=== PATIENT | male | born 1995 | race Caucasian/White ===

== ENCOUNTER 2017-07-05 10:21 | Emergency (ER) | payer MEDICAID ==
[2017-07-05] MEDS ORDERED: KETOROLAC 60 MG/2 ML VIAL IVP STA (10:36)
[2017-07-05] MEDS ORDERED: ONDANSETRON 4 MG/2 ML VIAL IVP STA ×2 (10:36→13:03)
[2017-07-05] MEDS ORDERED: SODIUM CHLORIDE 0.9% 1,000 ML IV ONE (10:37)
[2017-07-05] MEDS ORDERED: ONDANSETRON 4 MG/2 ML VIAL ONE ×2 (10:42→13:13)
[2017-07-05] MEDS ORDERED: KETOROLAC 30 MG/ML VIAL ONE (10:42)
[2017-07-05 10:52] LABS: BASOPHILS % (AUTO) 0.1 %; HCT - HEMATOCRIT 48.2 % (42.0-52.0); HGB - HEMOGLOBIN 16.1 g/dL (14.0-18.0); LYMPHOCYTES % (AUTO) 3.7 %; MEAN CORPUSCULAR HEMOGLOBIN 30.8 pg (27.0-31.0); MEAN CORPUSCULAR HGB CONC 33.5 g/dL (32.0-36.0); MEAN PLATELET VOLUME 8.4 fL (7.4-11.4); MONOCYTES % (AUTO) 1.8 %; NEUTROPHILS % (AUTO) 94.4 %; RED BLOOD COUNT 5.23 10^6/uL (4.70-6.10); RED CELL DISTRIBUTION WIDTH 13.9 % (12.0-15.0); UNCORRECTED WHITE BLOOD COUNT 21.7 x10^3/uL; WHITE BLOOD COUNT 21.7 x10^3/uL (4.8-10.8)
--- NOTE | 2017-07-05 11:15 | ED Physician Documentation ---
History of Present Illness - Stated complaint Stated Complaint: R SIDE PX - Chief complaint Chief Complaint: Abd Pain - History obtained from History obtained from: Patient, Friend - History of Present Illness Timing: Last night Pain level max: 8 Pain level now: 6 - Additonal information Additional information: Patient is a 22-year-old male who presents to the emergency department with right flank pain. States similar to kidney stones he has had in the past. He has had nausea and vomiting. States that nothing makes the pain better and nothing makes the pain worse. Was drinking alcohol last night. Denies any fevers. Review of Systems Constitutional: denies: Fever, Chills Throat: denies: Sore throat Cardiac: denies: Chest pain / pressure Respiratory: denies: Cough GI: denies: Diarrhea, Hematemesis, Bloody / black stool : reports: Hematuria. denies: Dysuria, Frequency, Hesitancy Skin: denies: Rash Musculoskeletal: denies: Neck pain, Back pain Neurologic: denies: Headache PD PAST MEDICAL HISTORY - Past Medical History Past Medical History: Yes : Kidney stones - Past Surgical History Past Surgical History: No - Present Medications Home Medications: Ambulatory Orders Medication Instructions Recorded Confirmed Ibuprofen [Motrin] 800 mg PO Q8H PRN #30 tablet 07/05/17 Ondansetron Odt [Zofran] 4 mg TL Q6H PRN #10 tablet 07/05/17 Oxycodone HCl/Acetaminophen 1 - 2 each PO Q6H PRN #14 tablet 07/05/17 [Percocet 5-325 mg Tablet] - Allergies Allergies/Adverse Reactions: Allergies Allergy/AdvReac Type Severity Reaction Status Date / Time Penicillins Allergy Mild Rash Verified 08/29/13 01:55 - Social History Does the pt smoke?: Yes Smoking Status: Current every day smoker Does the pt drink ETOH?: Yes Does the pt have substance abuse?: Yes Substance Use and Type: Marijuana - Immunizations Immunizations are current?: Yes - POLST Patient has POLST: No PD ED PE NORMAL - Vitals Vital signs reviewed: Yes - General General: Alert and oriented X 3, Other (appears in pain) - HEENT HEENT: Moist mucous membranes - Neck Neck: Supple, no meningeal sign - Cardiac Cardiac: RRR - Respiratory Respiratory: No respiratory distress, Clear bilaterally - Abdomen Abdomen: Soft, Non tender, Non distended - Back Back: No CVA TTP - Derm Derm: Warm and dry - Neuro Neuro: Alert and oriented X 3 - Psych Psych: Normal mood, Normal affect Results - Vitals Vitals: Vital Signs - 24 hr 07/05/17 07/05/17 07/05/17 10:25 12:20 13:56 Temperature 36.7 C Heart Rate 71 72 70 Respiratory 18 16 12 Rate Blood Pressure 127/80 131/53 H 108/52 L O2 Saturation 100 99 100 Oxygen O2 Source Room air - Labs Labs: Laboratory Tests 07/05/17 07/05/17 07/05/17 10:40 10:40 11:25 WBC 21.7 H RBC 5.23 Hgb 16.1 Hct 48.2 MCV 92.0 MCH 30.8 MCHC 33.5 RDW 13.9 Plt Count 233 MPV 8.4 Neut # Not Reportable Lymph # Not Reportable [place] # Not Reportable Eos # Not Reportable Baso # Not Reportable Absolute Nucleated RBC Not Reportable Band Neuts % (Manual) 1 Neutrophils # (Manual) 21.0 H Lymphocytes # (Manual) 0.7 L Nucleated RBCs Not Reportable Platelet Estimate NORMAL (130-450,000) RBC Morph Micro Appear NORMAL APPEARANCE Sodium 140 Potassium 4.4 Chloride 101 Carbon Dioxide 19 L Anion Gap 20.0 H BUN 11 Creatinine 1.1 Estimated GFR (MDRD) 85 L Glucose 213 H Calcium 10.0 Total Bilirubin 0.4 AST 41 ALT < 10 L Alkaline Phosphatase 71 Total Protein 8.2 Albumin 5.0 Globulin 3.2 Albumin/Globulin Ratio 1.6 Lipase 23 Urine Color YELLOW Urine Clarity CLEAR Urine pH 7.0 Ur Specific [place] 1.010 Urine Protein TRACE Urine Glucose (UA) 250 H Urine Ketones 15 H Urine Occult Blood MODERATE H Urine Nitrite NEGATIVE Urine Bilirubin NEGATIVE Urine Urobilinogen 0.2 (NORMAL) Ur Leukocyte Esterase NEGATIVE Urine RBC 11-25 H Urine WBC 0-3 Ur Squamous Epith Cells NONE SEEN Urine Bacteria None Seen Urine Casts 0-2 Hyaline Casts Ur Microscopic Review INDICATED Urine Culture Comments NOT INDICATED Urine Opiates Screen POSITIVE H Ur Oxycodone Screen NEGATIVE Urine Methadone Screen NEGATIVE Ur Propoxyphene Screen NEGATIVE Ur Barbiturates Screen NEGATIVE Ur Tricyclics Screen NEGATIVE Ur Phencyclidine Scrn NEGATIVE Ur Amphetamine Screen NEGATIVE U Methamphetamines Scrn NEGATIVE U Benzodiazepines Scrn NEGATIVE Urine Cocaine Screen NEGATIVE U Cannabinoids Screen POSITIVE H - Rads (name of study) CT abdomen and pelvis Radiology: Prelim report reviewed, EMP read contemporaneously, See rad report ( Bilateral nonobstructing renal stones) PD MEDICAL DECISION MAKING - ED course Complexity details: reviewed results, re-evaluated patient, considered differential, d/w patient ED course: Patient is a 22-year-old male who presents to the emergency department with what appears to be a kidney stone on the right side. Pain resolved with Toradol. Feels much better. Pain did begin to recur in the emergency department and pain was well controlled once again. Tolerating p.o. without difficulty. Will prescribe a small amount of pain medication for home. Does have hematuria consistent with ureteral stone as well. No evidence of infection. Patient counseled regarding signs and symptoms for which I believe and urgent re-evaluation would be necessary. Patient with good understanding of and agreement to plan and is comfortable going home at this time This document was made in part using voice recognition software. While efforts are made to proofread this document, sound alike and grammatical errors may occur. Departure - Departure Disposition: 01 Home, Self Care Clinical Impression: Ureteral stone Condition: Good Instructions: ED Stone Renal W Colic Follow-Up: Abhijeet Perez MD [Primary Care Provider] - Within 3 Days Prescriptions: Ibuprofen [Motrin] 800 mg PO Q8H PRN #30 tablet PRN Reason: PAIN &/OR FEVER Oxycodone HCl/Acetaminophen [Percocet 5-325 mg Tablet] 1 - 2 each PO Q6H PRN # 14 tablet PRN Reason: pain Ondansetron Odt [Zofran] 4 mg TL Q6H PRN #10 tablet PRN Reason: Nausea / Vomiting Comments: Return if you worsen. Drink plenty of water. Do not drink alcohol or drive while on narcotic pain medicine. Note that many narcotic pain relievers also contain tylenol/acetaminophen. Please ensure that your total dose of acetaminophen from all sources does not exceed 3 grams (3000mg) per day. You may constipated on this medication, take a stool softener such as "Colace" twice a day while you are on it. Also recommend a [id number] laxative such as senna or MiraLAX any day that you do not have a bowel movement. If you received narcotic pain medication in the emergency department, do not drive or operate machinery for the next 24 hours. Your blood pressure was elevated today on check in to the emergency department. This does not mean that you have hypertension, it is a common phenomenon to check into the emergency department and have elevated blood pressure. I recommend that you see your primary care physician within the week to have it rechecked when you're feeling better. Discharge Date/Time: 07/05/17 14:31
[2017-07-05 11:20] LABS: BAND NEUTROPHILS % (MANUAL) 1 %; LYMPHOCYTES % (MANUAL) 3 %; NEUTROPHILS % (MANUAL) 96 %
[2017-07-05 11:21] LABS: NP AUTO DIFFERENTIAL? YES; NP MAN DIFFERENTIAL? NO; PLATELET ESTIMATE, MANUAL NORMAL (130-450,000) (NORMAL)
[2017-07-05 11:22] LABS: ALBUMIN/GLOBULIN RATIO 1.6 (1.0-2.2); BILIRUBIN,TOTAL 0.4 mg/dL (0.2-1.0); BUN - BLOOD UREA NITROGEN 11 mg/dL (6-20); CARBON DIOXIDE - CO2 19 mmol/L (21-32); CHLORIDE 101 mmol/L (101-111); CREATININE 1.1 mg/dL (0.6-1.2); GFR - MDRD 85 (>89); GLUCOSE 213 mg/dL (70-100); LIPASE 23 U/L (22-51); POTASSIUM 4.4 mmol/L (3.5-5.0); SODIUM 140 mmol/L (135-145); TOTAL PROTEIN 8.2 g/dL (6.7-8.2)
[2017-07-05 11:34] LABS: BILIRUBIN,URINE NEGATIVE (NEGATIVE)
[2017-07-05 11:36] LABS: UA w/ MICROSCOPIC CHARGE YES
[2017-07-05 11:53] LABS: WBC,URINE 0-3 /HPF (0-3)
[2017-07-05 11:54] LABS: UR CULTURE IF IND NOT INDICATED
[2017-07-05] MEDS: SODIUM CHLORIDE 0.9% 1,000 ML IV ONE ×2 (12:17→13:03)
--- NOTE | 2017-07-05 12:49 | CT Preliminary Report ---
Exam: CT Abdomen/Pelvis W/O IMPRESSION: 1. Nonobstructing bilateral renal stones. [facility] SITE ID: [id number]
--- NOTE | 2017-07-05 12:51 | CT Report ---
EXAM: CT ABDOMEN AND PELVIS (CT KUB) EXAM DATE: 07/05/2017 12:00 PM. CLINICAL HISTORY: R flank pain, poss kidney stone. COMPARISONS: None. TECHNIQUE: Routine axial helical CT imaging was performed through the abdomen and pelvis without IV c ontrast. Reconstructions: Coronal and sagittal. In accordance with CT protocol optimization, one or more of the following dose reduction techniques w ere utilized for this exam: automated exposure control, adjustment of mA and/or KV based on patient s ize, or use of iterative reconstructive technique. FINDINGS: Lung Bases: Unremarkable. Right Kidney/Ureter: 2 nonobstructing right renal stones measuring up to 3 mm the lower pole. Left Kidney/Ureter: 2 nonobstructing left renal stones measuring up to 2 mm in the interpolar region. 1.3 cm lateral left upper renal cyst with water attenuation. Other Solid Organs: Noncontrast images of the solid organs are grossly unremarkable. Gallbladder/Bile Ducts: Dependent density may be from sludge. Cannot exclude noncalcified stones. Peritoneal Cavity: Cecum extends into the right anterior hemipelvis. A normal appendix is probably pr esent. Pelvic Organs: No bladder stones or wall thickening. Noncontrast images of the visualized pelvic orga ns are unremarkable. Vasculature: Unremarkable. Other: None. IMPRESSION: 1. Nonobstructing bilateral renal stones. [facility] Referring Provider Line: [phone] SITE ID: [id number]
[2017-07-05] MEDS ORDERED: MORPHINE 2 MG/ML CARPUJECT IVP STA (13:03)
[2017-07-05] MEDS ORDERED: MORPHINE 2 MG/ML CARPUJECT ONE (13:13)
[2017-07-05 13:56] VITALS: BP 108/52
== END 2017-07-05 14:31 | disposition home or self-care (01) ==
LOC: ED 10:21
DX: N20.2 Calculus of kidney with calculus of ureter (principal); Z87.442 Personal history of urinary calculi; F17.200 Nicotine dependence, unspecified, uncomplicated; R03.0 Elevated blood-pressure reading, without diagnosis of hypertension
CPT/HCPCS: 36415; 74176; 80053; 80306; 81001; 81003; 83690; 85025; 87086; 96374; 96375; 96376; 99283; 99284

== ENCOUNTER 2018-10-10 05:56 | Outpatient (CLI) | payer MEDICAID | END 2018-10-10 05:57 | disposition critical access hospital (66) | LOC: EMS 05:56 | PROVIDERS: ATTEND Surgery | DX: R10.9 Unspecified abdominal pain (principal); R51 Headache; R50.9 Fever, unspecified | CPT/HCPCS: A0425; A0429; A0999 ==

== ENCOUNTER 2018-10-10 05:59 | Inpatient (IN) | payer MEDICAID ==
[2018-10-10] MEDS ORDERED: SODIUM CHLORIDE 0.9% 1,000 ML IV ONE (06:13)
--- NOTE | 2018-10-10 06:15 | ED Physician Documentation ---
History of Present Illness - Stated complaint Stated Complaint: abd px - Chief complaint Chief Complaint: Abd Pain - History obtained from History obtained from: Patient - History of Present Illness Timing: Prior to arrival Pain level max: 10 Pain level now: 10 - Additonal information Additional information: 23-year-old male with history of Kidney stone,IVDA no surgical history here with complaint of abdominal pain and leg pain due to drug withdrawal. He states he actively does IV heroin every 2 hours 1 point each time and the last time he took it was 6 hours ago. Patient also states that he smokes a lot of pot. Denies alcohol denies suicidal ideation. Denies any trauma or travel.Patient stated he is staying with [facility] and she called the ambulance. Review of Systems Ten Systems: 10 systems reviewed and negative Constitutional: reports: Myalgias. denies: Fever Cardiac: denies: Chest pain / pressure Respiratory: denies: Dyspnea GI: reports: Abdominal Pain. denies: Nausea, Vomiting, Constipation, Diarrhea : denies: Dysuria Musculoskeletal: reports: Extremity pain. denies: Neck pain, Back pain Neurologic: denies: Generalized weakness, Numbness PD PAST MEDICAL HISTORY - Past Medical History : Kidney stones - Past Surgical History Past Surgical History: No - Present Medications Home Medications: Ambulatory Orders Medication Instructions Recorded Confirmed Ibuprofen [Motrin] 800 mg PO Q8H PRN #30 tablet 07/05/17 Ondansetron Odt [Zofran] 4 mg TL Q6H PRN #10 tablet 07/05/17 Oxycodone HCl/Acetaminophen 1 - 2 each PO Q6H PRN #14 tablet 07/05/17 [Percocet 5-325 mg Tablet] - Allergies Allergies/Adverse Reactions: Allergies Allergy/AdvReac Type Severity Reaction Status Date / Time Penicillins Allergy Mild Rash Verified 08/29/13 01:55 - Social History Does the pt smoke?: Yes Smoking Status: Current every day smoker Does the pt drink ETOH?: Yes Does the pt have substance abuse?: Yes - Immunizations Immunizations are current?: Yes - POLST Patient has POLST: No PD ED PE NORMAL - Vitals Vital signs reviewed: Yes - General General: Alert and oriented X 3, Well developed/nourished, Other (Patient intermittently moans due to abdominal and leg pain) - HEENT HEENT: Atraumatic, PERRL, EOMI, Moist mucous membranes, Pharynx benign - Neck Neck: Supple, no meningeal sign, No bony TTP - Cardiac Cardiac: RRR, No murmur - Respiratory Respiratory: No respiratory distress, Clear bilaterally - Abdomen Abdomen: Normal bowel sounds, Soft, Non distended, No organomegaly, Other (Low abdominal pain with tightening muscles. No rebound no guarding.) - Back Back: No CVA TTP, No spinal TTP - Derm Derm: Normal color, Warm and dry, No rash - Extremities Extremities: No deformity, No tenderness to palpate, Normal ROM s pain, No edema, No calf tenderness / cord - Neuro Neuro: Alert and oriented X 3 - Psych Psych: Normal mood, Normal affect Results - Vitals Vitals: Vital Signs - 24 hr 10/10/18 10/10/18 06:09 06:30 Temperature 39.7 C H 39.7 C H Heart Rate 135 H 120 H Respiratory 20 20 Rate Blood Pressure 122/50 L 165/105 H O2 Saturation 100 100 Oxygen O2 Source Room air - Labs Labs: Laboratory Tests 10/10/18 10/10/18 10/10/18 06:16 06:16 06:16 WBC 2.7 L RBC 4.53 L Hgb 13.8 L Hct 41.9 L MCV 92.4 MCH 30.5 MCHC 33.0 RDW 13.3 Plt Count 218 MPV 6.7 L Neut # (Auto) Not Reportable Lymph # (Auto) Not Reportable [place] # (Auto) Not Reportable Eos # (Auto) Not Reportable Baso # (Auto) Not Reportable Absolute Nucleated RBC Not Reportable Total Counted 100 Band Neuts % (Manual) 20 H Abnorm Lymph % (Manual) 0 Metamyelocytes % 2 H Myelocytes % 2 H Nucleated RBC % Not Reportable Neutrophils # (Manual) 2.3 Lymphocytes # (Manual) 0.2 L Monocytes # (Manual) 0.0 Eosinophils # (Manual) 0.0 Basophils # (Manual) 0.0 Differential Comment MANUAL DIFFERENTIAL Platelet Estimate NORMAL (130-450,000) RBC Morph Micro Appear NORMAL APPEARANCE Sodium 138 Potassium 3.5 Chloride 101 Carbon Dioxide 28 Anion Gap 9.0 BUN 18 Creatinine 1.3 H Estimated GFR (MDRD) 69 L Glucose 113 H Calcium 8.8 Total Bilirubin 1.2 H AST 103 H ALT 65 H Alkaline Phosphatase 185 H Total Creatine Kinase 333 H Total Protein 6.8 Albumin 3.9 Globulin 2.9 Albumin/Globulin Ratio 1.3 Lipase 19 L Urine Color Urine Clarity Urine pH Ur Specific [place] Urine Protein Urine Glucose (UA) Urine Ketones Urine Occult Blood Urine Nitrite Urine Bilirubin Urine Urobilinogen Ur Leukocyte Esterase Ur Microscopic Review Urine Culture Comments Salicylates < 6.0 Urine Opiates Screen Ur Oxycodone Screen Urine Methadone Screen Ur Propoxyphene Screen Acetaminophen < 10 L Ur Barbiturates Screen Ur Tricyclics Screen Ur Phencyclidine Scrn Ur Amphetamine Screen U Methamphetamines Scrn U Benzodiazepines Scrn Urine Cocaine Screen U Cannabinoids Screen Ethyl Alcohol < 5.0 10/10/18 06:39 WBC RBC Hgb Hct MCV MCH MCHC RDW Plt Count MPV Neut # (Auto) Lymph # (Auto) [place] # (Auto) Eos # (Auto) Baso # (Auto) Absolute Nucleated RBC Total Counted Band Neuts % (Manual) Abnorm Lymph % (Manual) Metamyelocytes % Myelocytes % Nucleated RBC % Neutrophils # (Manual) Lymphocytes # (Manual) Monocytes # (Manual) Eosinophils # (Manual) Basophils # (Manual) Differential Comment Platelet Estimate RBC Morph Micro Appear Sodium Potassium Chloride Carbon Dioxide Anion Gap BUN Creatinine Estimated GFR (MDRD) Glucose Calcium Total Bilirubin AST ALT Alkaline Phosphatase Total Creatine Kinase Total Protein Albumin Globulin Albumin/Globulin Ratio Lipase Urine Color YELLOW Urine Clarity CLEAR Urine pH 6.0 Ur Specific [place] 1.025 Urine Protein TRACE Urine Glucose (UA) NEGATIVE Urine Ketones NEGATIVE Urine Occult Blood TRACE-INTA Urine Nitrite NEGATIVE Urine Bilirubin NEGATIVE Urine Urobilinogen 0.2 (NORMAL) Ur Leukocyte Esterase NEGATIVE Ur Microscopic Review NOT INDICATED Urine Culture Comments NOT INDICATED Salicylates Urine Opiates Screen POSITIVE H Ur Oxycodone Screen NEGATIVE Urine Methadone Screen NEGATIVE Ur Propoxyphene Screen NEGATIVE Acetaminophen Ur Barbiturates Screen NEGATIVE Ur Tricyclics Screen NEGATIVE Ur Phencyclidine Scrn NEGATIVE Ur Amphetamine Screen POSITIVE H U Methamphetamines Scrn POSITIVE H U Benzodiazepines Scrn NEGATIVE Urine Cocaine Screen NEGATIVE U Cannabinoids Screen POSITIVE H Ethyl Alcohol PD MEDICAL DECISION MAKING - ED course Complexity details: considered differential (Perforation, obstruction, drug withdrawal, appendicitis, Rhabdomyolysis) ED course: [address] scan. 7[address] Sign out given to Dr Baker. Departure - Departure Clinical Impression: Polydrug abuse, continuous Abdominal pain Qualifiers: Abdominal location: lower abdomen, unspecified Qualified Code(s): R10.30 - Lower abdominal pain, unspecified
[2018-10-10 06:20] LABS: BASOPHILS % (AUTO) 0.4 %; EOSINOPHILS % (AUTO) 0.3 %; HGB - HEMOGLOBIN 13.8 g/dL (14.0-18.0); LYMPHOCYTES % (AUTO) 5.7 %; MEAN CORPUSCULAR HEMOGLOBIN 30.5 pg (27.0-31.0); MEAN CORPUSCULAR VOLUME 92.4 fL (80.0-94.0); MEAN PLATELET VOLUME 6.7 fL (7.4-11.4); MONOCYTES % (AUTO) 0.8 %; NEUTROPHILS % (AUTO) 92.8 %; PLT - PLATELET COUNT 218 10^3/uL (130-450); RED BLOOD COUNT 4.53 10^6/uL (4.70-6.10); RED CELL DISTRIBUTION WIDTH 13.3 % (12.0-15.0); WHITE BLOOD COUNT 2.7 x10^3/uL (4.8-10.8)
[2018-10-10 06:25] LABS: ABNORMAL LYMPHS % (MANUAL) 0 %
[2018-10-10 06:33] LABS: ALBUMIN 3.9 g/dL (3.2-5.5); ALBUMIN/GLOBULIN RATIO 1.3 (1.0-2.2); ALKALINE PHOSPHATASE 185 IU/L (42-121); ALT ALANINE AMINOTRANSFERASE 65 IU/L (10-60); AST ASPARTATE AMINOTRANSFERASE 103 IU/L (10-42); BILIRUBIN,TOTAL 1.2 mg/dL (0.2-1.0); BUN - BLOOD UREA NITROGEN 18 mg/dL (6-20); CALCIUM 8.8 mg/dL (8.5-10.3); CARBON DIOXIDE - CO2 28 mmol/L (21-32); CHLORIDE 101 mmol/L (101-111); CK- CREATINE KINASE 333 IU/L (22-269); CREATININE 1.3 mg/dL (0.6-1.2); GFR - MDRD 69 (>89); GLUCOSE 113 mg/dL (70-100); LIPASE 19 U/L (22-51); SODIUM 138 mmol/L (135-145); TOTAL PROTEIN 6.8 g/dL (6.7-8.2)
[2018-10-10 06:40] LABS: MUDS CUTOFF CONCENTRATIONS CUTOFF CONC BELOW:
[2018-10-10] MEDS ORDERED: IOVERSOL 320 100 ML VIAL IVP ONE ×2 (06:42→08:08)
[2018-10-10 06:43] LABS: BILIRUBIN,URINE NEGATIVE (NEGATIVE); GLUCOSE, URINE (UA) NEGATIVE (NEGATIVE); KETONES,URINE (UA) NEGATIVE (NEGATIVE); LEUKOCYTE ESTERASE, URINE NEGATIVE (NEGATIVE); NITRITE,URINE NEGATIVE (NEGATIVE); OCCULT BLOOD,URINE TRACE-INTA (NEGATIVE); PROTEIN,URINE TRACE mg/dL (NEGATIVE); UROBILINOGEN,URINE 0.2 (NORMAL) E.U./dL (NORMAL)
[2018-10-10 06:48] LABS: CLARITY,URINE CLEAR (CLEAR)
[2018-10-10 06:59] LABS: AMPHETAMINE SCREEN,URINE POSITIVE (NEGATIVE); BENZODIAZEPINES SCREEN, URINE NEGATIVE (NEGATIVE); COCAINE SCREEN URINE NEGATIVE (NEGATIVE); METHADONE SCREEN, URINE NEGATIVE (NEGATIVE); METHAMPHETAMINES SCREEN, URINE POSITIVE (NEGATIVE); OPIATE SCREEN, URINE POSITIVE (NEGATIVE); OXYCODONE SCREEN, URINE NEGATIVE (NEGATIVE); PROPOXYPHENE SCREEN, URINE NEGATIVE (NEGATIVE); TRICYCLIC ANTIDEPRESSANT,URINE NEGATIVE (NEGATIVE)
[2018-10-10 07:02] LABS: BAND NEUTROPHILS % (MANUAL) 20 %; DIFFERENTIAL COMMENT MANUAL DIFFERENTIAL; LYMPHOCYTES # (MANUAL) 0.2 10^3/uL (1.5-3.5); LYMPHOCYTES % (MANUAL) 8 %; METAMYELOCYTES % (MANUAL) 2 %; MYELOCYTES % (MANUAL) 2 %; NEUTROPHILS # (MANUAL) 2.3 10^3/uL (1.5-6.6); NEUTROPHILS % (MANUAL) 67 %; PLATELET ESTIMATE, MANUAL NORMAL (130-450,000) (NORMAL); RBC MORPHOLOGY (MULTIPLE) NORMAL APPEARANCE (NORMAL)
[2018-10-10 07:03] LABS: ACETAMINOPHEN < 10 ug/mL (10-30); SALICYLATE < 6.0 mg/dL
--- NOTE | 2018-10-10 07:39 | XRAY Report ---
Reason: chest pain Procedure Date: 10/10/2018 Accession Number: [id number] / [id number] Procedure: XR - Chest 1 View X-Ray CPT Code: 61279 FULL RESULT: EXAM: CHEST RADIOGRAPHY EXAM DATE: 10/10/2018 07:06 AM. CLINICAL HISTORY: Chest pain. COMPARISON: None. TECHNIQUE: 1 view. FINDINGS: Lungs/Pleura: No focal opacities evident. No pleural effusion. No detectable pneumothorax. Azygous fissure/lobe. Mediastinum: Within exam limitations, the cardiomediastinal contour is normal. Other: None. IMPRESSION: No acute cardiopulmonary abnormality. [facility]
--- NOTE | 2018-10-10 07:41 | ED Physician Documentation ---
History of Present Illness - Stated complaint Stated Complaint: abd px - Chief complaint Chief Complaint: Abd Pain PD PAST MEDICAL HISTORY - Past Medical History : Kidney stones - Past Surgical History Past Surgical History: No - Present Medications Home Medications: Ambulatory Orders Medication Instructions Recorded Confirmed No Known Home Medications 10/10/18 10/10/18 - Allergies Allergies/Adverse Reactions: Allergies Allergy/AdvReac Type Severity Reaction Status Date / Time Penicillins Allergy Mild Rash Verified 08/29/13 01:55 - Social History Does the pt smoke?: Yes Smoking Status: Current every day smoker Does the pt drink ETOH?: Yes Does the pt have substance abuse?: Yes - Immunizations Immunizations are current?: Yes - POLST Patient has POLST: No Results - Vitals Vitals: Vital Signs - 24 hr 10/10/18 10/10/18 10/10/18 06:09 06:30 08:17 Temperature 39.7 C H 39.7 C H 37.7 C H Heart Rate 135 H 120 H 122 H Respiratory 20 20 19 Rate Blood Pressure 122/50 L 165/105 H 104/63 O2 Saturation 100 100 98 10/10/18 10/10/18 09:22 10:44 Temperature 37.7 C H Heart Rate 120 H 120 H Respiratory 21 14 Rate Blood Pressure 112/60 112/60 O2 Saturation 96 95 Oxygen O2 Source Room air - Labs Labs: Microbiology 10/10/18 09:15 CSF Culture - Preliminary Cerebral Spinal Fluid Laboratory Tests 10/10/18 10/10/18 10/10/18 06:05 06:16 06:16 WBC 2.7 L RBC 4.53 L Hgb 13.8 L Hct 41.9 L MCV 92.4 MCH 30.5 MCHC 33.0 RDW 13.3 Plt Count 218 MPV 6.7 L Neut # (Auto) Not Reportable Lymph # (Auto) Not Reportable [place] # (Auto) Not Reportable Eos # (Auto) Not Reportable Baso # (Auto) Not Reportable Absolute Nucleated RBC Not Reportable Total Counted 100 Band Neuts % (Manual) 20 H Abnorm Lymph % (Manual) 0 Metamyelocytes % 2 H Myelocytes % 2 H Nucleated RBC % Not Reportable Neutrophils # (Manual) 2.3 Lymphocytes # (Manual) 0.2 L Monocytes # (Manual) 0.0 Eosinophils # (Manual) 0.0 Basophils # (Manual) 0.0 Differential Comment MANUAL DIFFERENTIAL Platelet Estimate NORMAL (130-450,000) RBC Morph Micro Appear NORMAL APPEARANCE PT 12.8 H INR 1.1 Sodium 138 Potassium 3.5 Chloride 101 Carbon Dioxide 28 Anion Gap 9.0 BUN 18 Creatinine 1.3 H Estimated GFR (MDRD) 69 L Glucose 113 H Lactic Acid Calcium 8.8 Total Bilirubin 1.2 H AST 103 H ALT 65 H Alkaline Phosphatase 185 H Total Creatine Kinase 333 H Total Protein 6.8 Albumin 3.9 Globulin 2.9 Albumin/Globulin Ratio 1.3 Lipase 19 L Urine Color Urine Clarity Urine pH Ur Specific Mcnary Urine Protein Urine Glucose (UA) Urine Ketones Urine Occult Blood Urine Nitrite Urine Bilirubin Urine Urobilinogen Ur Leukocyte Esterase Ur Microscopic Review Urine Culture Comments CSF Color CSF Clarity Xanthrochromic CSF WBC CSF RBC CSF Cell Count Tube # CSF Glucose CSF Total Protein Salicylates Urine Opiates Screen Ur Oxycodone Screen Urine Methadone Screen Ur Propoxyphene Screen Acetaminophen Ur Barbiturates Screen Ur Tricyclics Screen Ur Phencyclidine Scrn Ur Amphetamine Screen U Methamphetamines Scrn U Benzodiazepines Scrn Urine Cocaine Screen U Cannabinoids Screen Ethyl Alcohol < 5.0 Influenza A (Rapid) Influenza B (Rapid) 10/10/18 10/10/18 10/10/18 06:16 06:39 07:51 WBC RBC Hgb Hct MCV MCH MCHC RDW Plt Count MPV Neut # (Auto) Lymph # (Auto) [place] # (Auto) Eos # (Auto) Baso # (Auto) Absolute Nucleated RBC Total Counted Band Neuts % (Manual) Abnorm Lymph % (Manual) Metamyelocytes % Myelocytes % Nucleated RBC % Neutrophils # (Manual) Lymphocytes # (Manual) Monocytes # (Manual) Eosinophils # (Manual) Basophils # (Manual) Differential Comment Platelet Estimate RBC Morph Micro Appear PT INR Sodium Potassium Chloride Carbon Dioxide Anion Gap BUN Creatinine Estimated GFR (MDRD) Glucose Lactic Acid 1.6 Calcium Total Bilirubin AST ALT Alkaline Phosphatase Total Creatine Kinase Total Protein Albumin Globulin Albumin/Globulin Ratio Lipase Urine Color YELLOW Urine Clarity CLEAR Urine pH 6.0 Ur Specific Mcnary 1.025 Urine Protein TRACE Urine Glucose (UA) NEGATIVE Urine Ketones NEGATIVE Urine Occult Blood TRACE-INTA Urine Nitrite NEGATIVE Urine Bilirubin NEGATIVE Urine Urobilinogen 0.2 (NORMAL) Ur Leukocyte Esterase NEGATIVE Ur Microscopic Review NOT INDICATED Urine Culture Comments NOT INDICATED CSF Color CSF Clarity Xanthrochromic CSF WBC CSF RBC CSF Cell Count Tube # CSF Glucose CSF Total Protein Salicylates < 6.0 Urine Opiates Screen POSITIVE H Ur Oxycodone Screen NEGATIVE Urine Methadone Screen NEGATIVE Ur Propoxyphene Screen NEGATIVE Acetaminophen < 10 L Ur Barbiturates Screen NEGATIVE Ur Tricyclics Screen NEGATIVE Ur Phencyclidine Scrn NEGATIVE Ur Amphetamine Screen POSITIVE H U Methamphetamines Scrn POSITIVE H U Benzodiazepines Scrn NEGATIVE Urine Cocaine Screen NEGATIVE U Cannabinoids Screen POSITIVE H Ethyl Alcohol Influenza A (Rapid) Influenza B (Rapid) 10/10/18 10/10/18 10/10/18 08:41 09:15 09:15 WBC RBC Hgb Hct MCV MCH MCHC RDW Plt Count MPV Neut # (Auto) Lymph # (Auto) [place] # (Auto) Eos # (Auto) Baso # (Auto) Absolute Nucleated RBC Total Counted Band Neuts % (Manual) Abnorm Lymph % (Manual) Metamyelocytes % Myelocytes % Nucleated RBC % Neutrophils # (Manual) Lymphocytes # (Manual) Monocytes # (Manual) Eosinophils # (Manual) Basophils # (Manual) Differential Comment Platelet Estimate RBC Morph Micro Appear PT INR Sodium Potassium Chloride Carbon Dioxide Anion Gap BUN Creatinine Estimated GFR (MDRD) Glucose Lactic Acid Calcium Total Bilirubin AST ALT Alkaline Phosphatase Total Creatine Kinase Total Protein Albumin Globulin Albumin/Globulin Ratio Lipase Urine Color Urine Clarity Urine pH Ur Specific Mcnary Urine Protein Urine Glucose (UA) Urine Ketones Urine Occult Blood Urine Nitrite Urine Bilirubin Urine Urobilinogen Ur Leukocyte Esterase Ur Microscopic Review Urine Culture Comments CSF Color COLORLESS CSF Clarity CLEAR Xanthrochromic ABSENT CSF WBC 1 CSF RBC 0 CSF Cell Count Tube # CSF TUBE# 3 CSF Glucose 68 CSF Total Protein 35 Salicylates Urine Opiates Screen Ur Oxycodone Screen Urine Methadone Screen Ur Propoxyphene Screen Acetaminophen Ur Barbiturates Screen Ur Tricyclics Screen Ur Phencyclidine Scrn Ur Amphetamine Screen U Methamphetamines Scrn U Benzodiazepines Scrn Urine Cocaine Screen U Cannabinoids Screen Ethyl Alcohol Influenza A (Rapid) Negative Influenza B (Rapid) Negative Procedures - Lumbar Puncture Position: Laying right side Location: L3-L4 Anesthesia: Local lidocaine CSF: Clear Other: Sterile prep and drape, Patient tolerated well, No complications. No: Bleeding PD MEDICAL DECISION MAKING - ED course ED course: assumed care 7 AM 23 male IVDA heroin and meth abuser to ER with abd pain exam was notable for lower abd TTP so he had blood work and CT to eval for appendicitis he is febrile 39.7 and has a HR of 135 labs notable for elevated LFTs and low WBC and 20% bands added on lactate blood cx 30 cc/kg IVF and empiric carbapenem and vanco and went to see pt he is a 23 male IVDA heroin and meth user last use several hr [facility] [employer] states has Hep C and was tested for HIV but does not know results states he has a HOROWITZ neck pain CP AP back pain and leg pain no cough NVD states blood in urine exam - febrile tachy SBP 100 awake alert but slightly confused PERRL no photophobia slightly dry MMM neck supple but states it hurts to flex tachy, faint sys murmur CTAB abd diffusely TTP s erythema lesion swelling ext s abscess CT AP neg for acute process CXR no acute process will LP, start empiric ab and admit for sepsis of uncertain etiology likely primarily from IVDA, needs echo too CSF neg for infection flu swabs neg echo done while pt still in ER and shows no vegetations but therapy technician notes pt has markedly dec EF of 30%, no effusion called hospitalist for admit at 0945 spoke to hospitalist at 1040 and she will admit to ICU Departure - Departure Disposition: [facility] DC/Xfer Clinical Impression: Polydrug abuse, continuous Sepsis Qualifiers: Sepsis type: sepsis due to unspecified organism Qualified Code(s): A41.9 - Sepsis, unspecified organism Cardiomyopathy Qualifiers: Cardiomyopathy type: unspecified Qualified Code(s): I42.9 - Cardiomyopathy, unspecified Condition: Fair Discharge Date/Time: 10/10/18 12:12
[2018-10-10] MEDS ORDERED: ACETAMINOPHEN 650 MG SUPP PR STA (07:46)
[2018-10-10] MEDS ORDERED: SODIUM CHLORIDE 0.9% 1,500 ML IV ONE (07:53)
--- NOTE | 2018-10-10 08:11 | CT Report ---
Reason: pain Procedure Date: 10/10/2018 Accession Number: [id number] / [id number] Procedure: CT - Abdomen/Pelvis W/ CPT Code: FULL RESULT: EXAM: CT ABDOMEN AND PELVIS EXAM DATE: 10/10/2018 07:02 AM. CLINICAL HISTORY: Pain. COMPARISONS: ABDOMEN/PELVIS W/O 07/05/2017 11:16 AM. TECHNIQUE: Routine helical CT imaging was performed through the abdomen and pelvis. IV contrast: OPTIRAY 320 100mL. Enteric contrast: No. Reconstructions: Coronal and sagittal. In accordance with CT protocol optimization, one or more of the following dose reduction techniques were utilized for this exam: automated exposure control, adjustment of mA and/or KV based on patient size, or use of iterative reconstructive technique. FINDINGS: Lung Bases: Unremarkable. Liver: No focal liver lesion. Nonspecific mild periportal edema. Gallbladder/Bile Ducts: Unremarkable. Spleen: Normal. Pancreas: Normal. Adrenal Glands: Normal. Kidneys: No hydronephrosis. 19 mm left renal cortical hypodensity, statistically cyst. Few to no definite ureteral calculi. Small nonobstructing bilateral renal calculi. Peritoneal Cavity/Bowel: No free air. No significant free fluid. Moderate colonic stool. Appendix is not clearly visualized; no pericecal inflammatory changes are evident. No evidence of obstruction. No mass or acute inflammatory process evident. Pelvic Organs: Normal. The bladder and visualized pelvic organs are within normal limits. Vasculature: No aneurysms or other significant abnormality. Bones: No significant abnormality. Other: None. IMPRESSION: 1. No convincing acute abdominopelvic findings. 2. Few small bilateral nonobstructing renal calculi. 3. Appendix is is not clearly visualized; no pericecal inflammatory changes are evident. 4. Nonspecific mild periportal edema. 5. Other findings as noted above. RADIA
[2018-10-10] MEDS ORDERED: MEROPENEM 1 GM in SODIUM CHLORIDE 0.9% MINIBAG 100 ML IV STA (08:16)
[2018-10-10] MEDS ORDERED: VANCOMYCIN INJ 1 GM in SODIUM CHLORIDE 0.9% 500 ML IV STA (08:30)
[2018-10-10] MEDS ORDERED: LORazepam 2 MG/ML VIAL IVP STA (08:47)
[2018-10-10] MEDS ORDERED: LIDOCAINE 1% 2 ML VIAL ONE (09:05)
[2018-10-10 09:27] LABS: CSF - GLUCOSE 68 mg/dL (45-70)
[2018-10-10 09:37] LABS: CLARITY,CSF CLEAR (CLEAR); COLOR,CSF COLORLESS (COLORLESS); CSF TUBE # CSF TUBE# 3
[2018-10-10 09:38] LABS: CSF XANTHOCHROMIA ABSENT (ABSENT); RED BLOOD CELL,CSF 0 /mm^3 (0-1); WHITE BLOOD CELL,CSF 1 /mm^3 (0-5)
[2018-10-10] MEDS ORDERED: PROCHLORPERAZINE 10 MG/2 ML VIAL IVP PRN (11:22)
[2018-10-10] MEDS ORDERED: ACETAMINOPHEN 325 MG TABLET PO PRN (11:22)
[2018-10-10] MEDS ORDERED: SODIUM CHLORIDE FLUSH 0.9% 10 ML SYRINGE IVP PRN (11:22)
[2018-10-10] MEDS ORDERED: VANCOMYCIN PER PHARMACY 10 GM in SODIUM CHLORIDE 0.9% 250 ML IV STA (11:27)
[2018-10-10 11:43] LABS: INR 1.1 (0.8-1.2); PT - PROTHROMBIN TIME 12.8 secs (9.9-12.6)
[2018-10-10] MEDS: LACTATED RINGERS 1,000 ML IV SCH ×2 (12:22→19:10)
[2018-10-10] MEDS: MEROPENEM 1 GM in SODIUM CHLORIDE 0.9% MINIBAG 100 ML IV SCH ×2 (15:34→23:51)
[2018-10-10] MEDS ORDERED: VANCOMYCIN INJ 1 GM, VANCOMYCIN INJ 250 MG in SODIUM CHLORIDE 0.9% 250 ML IV SCH (16:00)
[2018-10-10] MEDS: SODIUM CHLORIDE FLUSH 0.9% 10 ML SYRINGE IVP SCH ×2 (17:11→23:50)
[2018-10-10] MEDS: HYDROmorphone 1 MG/ML CARPUJECT IVP PRN ×2 (17:11→23:50)
[2018-10-10] MEDS: VANCOMYCIN INJ 1 GM in SODIUM CHLORIDE 0.9% 250 ML IV SCH (17:34)
[2018-10-10] MEDS ORDERED: LORazepam 0.5 MG TABLET SL PRN (20:46)
[2018-10-10] MEDS ORDERED: cloNIDine 0.1 MG PATCH TOP SCH (21:00)
[2018-10-10] MEDS: FAMOTIDINE 20 MG/50 ML 50 ML IV SCH (21:16)
[2018-10-10] MEDS: DICYCLOMINE 10 MG CAPSULE PO SCH (21:22)
--- NOTE | 2018-10-10 22:15 | HISTORY & PHYSICAL EXAMINATION ---
DATE OF SERVICE: 10/10/2018 Physician: Laura Yarbrough MD HISTORY OF PRESENT ILLNESS: This is a 23-year-old white male with history of kidney stones and IV drug abuse. The patient has a history of hepatitis C and was tested for HIV, but does not know his results yet. The patient lives with his grandparents and admits to using heroin and methamphetamine and marijuana every day. He presented to the emergency room on his own accord with complaints of severe abdominal pain, myalgias diffusely and a fever. He was found to have a heart rate of 140 and blood pressure of 100 and is being admitted for severe sepsis. PAST MEDICAL HISTORY: IV drug abuse using heroin, methamphetamine and he uses marijuana. History of kidney stones. FAMILY HISTORY: No inherited diseases. SOCIAL HISTORY: The patient drinks alcohol daily, uses heroin every 2 hours IV and admits to using pot frequently and methamphetamines intermittently. MEDICATIONS: None. ALLERGIES: PENICILLINS. REVIEW OF SYSTEMS: Comprehensive review of systems was performed by reviewing the chart, ER doctor's notes as the patient is currently sedated and cannot give detailed answers. The pertinent positives are listed, the rest are negative. PHYSICAL EXAMINATION: GENERAL: Young white male. He is in no distress. He awakens to his name and answers and falls back asleep. VITAL SIGNS: Blood pressure 99/55, pulse 98 in sinus tachycardia. His temperature was 39.7, room air saturation 100%. HEENT: Reveals moist oral mucosa. NECK: Without JVD or carotid bruits. LUNGS: Clear. HEART: Sounds normal. A 1/6 systolic murmur heard at the lower left sternal border. There is no gallop or RV heave. ABDOMEN: Soft, nontender. Normal bowel sounds. EXTREMITIES: No clubbing, cyanosis, edema. He was checked for abscesses by the emergency room physician thoroughly, no evidence of that was seen. NEUROLOGIC: Currently obtunded after Ativan was given. In the emergency room he was somewhat confused, giving answers that were not very clear, but there are no focal neurologic signs. LABORATORY DATA: He underwent a spinal tap in the emergency room, which showed 1 white blood cell, no bacteria. He underwent a CT of the abdomen, which was negative. Chest x-ray: no active disease. Urinalysis unremarkable. Normal electrolytes, BUN 18, creatinine 1.3. Lactic acid 1.6. Elevated liver tests with bilirubin 1.2, AST 103, ALT 65, alkaline phosphatase 185, lipase 19. White blood count low at 2.7, but his differential shows a significant left shift with 20% bands. Hemoglobin 13.8 with a normal MCV, and platelet count normal at 218. INR normal at 1.2. Urinalysis is unremarkable. CSF showed glucose of 68, protein of 35. Serum toxicology showed positive opiates, amphetamine, methamphetamine, and marijuana. Influenza A and B are negative. Echo was done in the emergency room to evaluate the murmur and to evaluate for vegetation, and this showed normal atrial sizes, mild right ventricular enlargement, but normal RV function, normal LV size and wall thickness, but global hypokinesis of the LV with moderately severely depressed EF of 30%, no evidence of vegetations on the leaflets, normal PA pressure of 27 mmHg. IMPRESSION/DIAGNOSES: 1. Severe sepsis by virtue of fever, tachycardia, low blood pressure, confusion and left shift on differential. The source is unknown, most likely a skin source from his iv drug injections. 2. Leukopenia, concern for immunologic disease such as HIV. 3. Intravenous drug abuse. 4. Acute kidney injury. 5. Heart murmur. 6. Systolic heart failure, acute/ new cardiomyopathy. 7. Elevated liver function tests. 8. History of hepatitis C. 9. History of kidney stones. PLAN: Admit patient to the ICU. Continue with aggressive IV hydration with crystalloids and if needed, Levophed. Culture the patient's blood. Begin the patient on empiric coverage for sepsis from a presumed skin source and will therefore use vancomycin and use meropenem because of his PENICILLIN ALLERGY. The patient's neuro status will be observed carefully, one-on-one observation also will be added since he mentioned to his nurse as they were speaking that he was "suicidal." Once he is medically stable, a mental health evaluation with Social Work will be ordered. Treat his fever and pain symptomatically. Watch for heroin withdrawal. CODE STATUS: FULL CODE. DEEP VENOUS THROMBOSIS PROPHYLAXIS: SCDs. ATTESTATION: The patient is expected to be discharged or transferred to another facility within 96 hours: Yes. cc: Abhijeet Perez M.D. TD: 10/10/2018 19:34 [facility]
[2018-10-11] MEDS: LACTATED RINGERS 1,000 ML IV SCH ×3 (02:27→15:34)
[2018-10-11] MEDS: VANCOMYCIN INJ 1 GM in SODIUM CHLORIDE 0.9% 250 ML IV SCH ×3 (02:28→17:35)
[2018-10-11] MEDS: HYDROmorphone 1 MG/ML CARPUJECT IVP PRN ×4 (05:15→22:25)
[2018-10-11 05:31] LABS: VBG PH 7.404 (7.31-7.41)
[2018-10-11 05:36] LABS: BASOPHILS % (AUTO) 0.3 %; EOSINOPHILS % (AUTO) 0.5 %; HGB - HEMOGLOBIN 12.1 g/dL (14.0-18.0); LYMPHOCYTES % (AUTO) 8.4 %; MEAN CORPUSCULAR HEMOGLOBIN 30.4 pg (27.0-31.0); MEAN CORPUSCULAR HGB CONC 32.9 g/dL (32.0-36.0); MEAN CORPUSCULAR VOLUME 92.3 fL (80.0-94.0); MEAN PLATELET VOLUME 7.5 fL (7.4-11.4); MONOCYTES % (AUTO) 5.6 %; NEUTROPHILS % (AUTO) 85.2 %; PLT - PLATELET COUNT 170 10^3/uL (130-450); RED BLOOD COUNT 3.98 10^6/uL (4.70-6.10); RED CELL DISTRIBUTION WIDTH 13.5 % (12.0-15.0); WHITE BLOOD COUNT 23.7 x10^3/uL (4.8-10.8)
[2018-10-11 05:39] LABS: ABNORMAL LYMPHS % (MANUAL) 0 %
[2018-10-11 05:41] LABS: ALBUMIN 2.6 g/dL (3.2-5.5); BILIRUBIN,TOTAL 0.7 mg/dL (0.2-1.0); CALCIUM 7.7 mg/dL (8.5-10.3); CREATININE 0.9 mg/dL (0.6-1.2); TOTAL PROTEIN 5.1 g/dL (6.7-8.2)
[2018-10-11 06:05] LABS: MAGNESIUM 1.6 mg/dL (1.7-2.8); PHOSPHORUS 2.6 mg/dL (2.5-4.6)
[2018-10-11 07:20] LABS: BAND NEUTROPHILS % (MANUAL) 25 %; DIFFERENTIAL COMMENT MANUAL DIFFERENTIAL; EOSINOPHILS # (MANUAL) 0.2 10^3/uL (0-0.7); LYMPHOCYTES # (MANUAL) 3.1 10^3/uL (1.5-3.5); LYMPHOCYTES % (MANUAL) 13 %; MONOCYTES # (MANUAL) 1.2 10^3/uL (0.0-1.0); NEUTROPHILS # (MANUAL) 19.2 10^3/uL (1.5-6.6); NEUTROPHILS % (MANUAL) 56 %; PLATELET ESTIMATE, MANUAL NORMAL (130-450,000) (NORMAL); RBC MORPHOLOGY (MULTIPLE) NORMAL APPEARANCE (NORMAL)
[2018-10-11] MEDS ORDERED: MAGNESIUM SULFATE 2 GRAM 2 GM/50 ML BAG IV ONE (08:00)
[2018-10-11] MEDS: DICYCLOMINE 10 MG CAPSULE PO SCH ×4 (08:54→20:51)
[2018-10-11] MEDS: SODIUM CHLORIDE FLUSH 0.9% 10 ML SYRINGE IVP SCH ×2 (08:55→17:23)
[2018-10-11] MEDS: NICOTINE 21 MG PATCH TOP SCH (09:00)
[2018-10-11] MEDS: FAMOTIDINE 20 MG/50 ML 50 ML IV SCH ×2 (09:03→20:51)
--- NOTE | 2018-10-11 09:12 | PROVIDER PROGRESS NOTE ---
Assessment/Plan - Problem List (1) Severe sepsis Assessment/Plan: WBC has now increased significantly. Possibly yesterday's WBC was a lab error or he has now finally mounted an inflammatory response. The Echo done yesterday showed no areas suspicious for vegetations but a ANSHUL was not done, as we don't have that procedure available here. Blood cultures x2 and csf culture are neg thus far. Continue empiric iv antibiotics for a presumed skin source. Monitor CBC daily. Will repeat blood cultures if he has recurrent fevers and in that case, would consider a transfer for a ANSHUL. (2) Leukopenia Assessment/Plan: Resolved and he now has a very elevated WBC, consistent with Sepsis. It is possible that yesterday's WBC was obtained before he mounted a WBC response. Monitor CBC daily while here. (3) Cardiomyopathy Qualifiers: Cardiomyopathy type: unspecified Qualified Code(s): I42.9 - Cardiomyopathy, unspecified Assessment/Plan: Potential etiologies may include: AIDS-cardiomyopathy, another viral cardiomyopathy, alcoholic cardiomyopathy, other drug complications like a cocaine-induced vasospasms and recurrent ischemia causing cardiomyopathy. Will begin Coreg anf Lisinopril, no Spironolactone due to recent volume depletion. (4) RM (acute kidney injury) Assessment/Plan: Resolved with iv fluids. Monitor BMP daily. (5) Polydrug abuse, continuous Assessment/Plan: The patient needed Bentyl and Clonidone overnight for heroin (opiate) drug withdrawal. This am his BP is normal and he is more awake and lucid. Will stop Clonidine in order to start Coreg and SAVANA-I for his cardiomyopathy. Depending on his alcohol use history, he may need a CIWA protocol. Will obtain a social work consult for mental health eval when he is medically stable, possibly in 1-2 days. He is more awake and will advance his diet. (6) Suicidal ideation Assessment/Plan: He voiced being suicidal to his ICU nurse yesterday, and he was put on suicide precaustions and 1:1 observation. Will obtain a social work consult for mental health eval when he is medically stable, possibly in 1-2 days. - Current Meds Current Meds: Current Medications Generic Name Dose Route Start Last Admin Trade Name Freq PRN Reason Stop Dose Admin Dicyclomine HCl 10 mg 10/10/18 21:00 10/10/18 21:22 Bentyl PO 10 mg QID DEJA Administration Hydromorphone HCl 1 mg 10/10/18 12:22 10/11/18 05:15 Dilaudid Inj Carp IVP 1 mg Q2HR PRN Administration PAIN 8 - 10 Famotidine 50 mls @ 100 mls/hr 10/10/18 21:00 10/10/18 21:46 Pepcid 20 Mg/50 Ml IV Infused BID DEJA Infusion Meropenem 1 gm/ Sodium 100 mls @ 200 mls/hr 10/10/18 16:00 10/11/18 00:31 Chloride IV Infused Q8H DEJA Infusion Vancomycin HCl 1 gm/ Sodium 250 mls @ 167 mls/hr 10/10/18 18:00 10/11/18 04:00 Chloride IV Infused Q8H DEJA Infusion Sodium Chloride 10 ml 10/10/18 17:00 10/10/18 23:50 Normal Saline Flush 0.9% IVP 10 ml 0100,0900,1700 DEJA Administration - Lab Result Fish Bone Diagrams: 10/11/18 05:15 10/11/18 05:15 - Additional Planning My Orders: My Active Orders 10/10/18 11:22 Activity Orders [RC] Routine Daily Weight [RC] 0600 IO [RC] Q1HR Initiate Bowel Care Protocol [RC] QSHIFT Initiate ICU Electrolyte Prot. [RC] .protocol Initiate Line Care Protocol [RC] .protocol Initiate Personal Care Protoco [RC] .protocol Vital Signs [RC] Q1HR Acetaminophen [Tylenol] 650 mg PO Q4HR PRN Prochlorperazine Inj [Compazine Inj] 10 mg IVP Q6HR PRN Sodium Chloride Flush 0.9% [Normal Saline Flush 0.9%] 10 ml IVP PRN PRN Code Status [OTHERS] Routine Condition of Patient [OTHERS] Routine DVT Prophylaxis [OTHERS] Routine 10/10/18 11:25 SCDs [RC] QSHIFT Telemetry- [RC] Routine 10/10/18 11:27 Straight Catheter Insertion [RC] PRN 10/10/18 12:22 HYDROmorphone INJ CARP [Dilaudid Inj Carp] 1 mg IVP Q2HR PRN 10/10/18 12:42 Tobacco Cessation [RC] .ONCE 10/10/18 13:15 1:1 Observation [RC] PRN 10/10/18 16:00 Meropenem [Merrem] 1 gm Sodium Chloride 0.9% Minibag [Normal Saline 0.9% Minibag] 100 ml IV Q8H 10/10/18 17:00 Sodium Chloride Flush 0.9% [Normal Saline Flush 0.9%] 10 ml IVP 0100,0900,1700 10/10/18 18:00 Vancomycin Inj [Vancomycin] 1 gm Sodium Chloride 0.9% [Normal Saline 0.9%] 250 ml IV Q8H 10/10/18 21:00 Famotidine 20 mg/50 ml [Pepcid 20 mg/50 ml] 50 ml IV BID 10/10/18 Lunch Soft Mechanical Diet [DIET] 10/11/18 09:01 Lactated Ringers [Lr] 1,000 ml IV 80 mls/hr 10/11/18 09:02 Carvedilol [Coreg] 3.125 mg PO BID 10/11/18 09:30 VANCOMYCIN TROUGH [CHEM] Timed 10/11/18 12:00 Lisinopril [Zestril] 5 mg PO 1200 10/11/18 Lunch DIET [Regular Diet] [DIET] 10/12/18 05:00 CALCIUM, IONIZED ([facility]) [BG] DAILYLAB CBC - COMP BLD CT W/AUTO DIFF [HEME] DAILYLAB COMPREHENSIVE METABOLIC PANEL [CHEM] DAILYLAB MAGNESIUM [CHEM] DAILYLAB PHOSPHORUS [CHEM] DAILYLAB 10/13/18 05:00 CALCIUM, IONIZED ([facility]) [BG] DAILYLAB CBC - COMP BLD CT W/AUTO DIFF [HEME] DAILYLAB COMPREHENSIVE METABOLIC PANEL [CHEM] DAILYLAB MAGNESIUM [CHEM] DAILYLAB PHOSPHORUS [CHEM] DAILYLAB 10/14/18 05:00 CBC - COMP BLD CT W/AUTO DIFF [HEME] DAILYLAB COMPREHENSIVE METABOLIC PANEL [CHEM] DAILYLAB Subjective - Subjective Patient Reports: Feeling Better, Headache, Other (Neck ache) Nursing Reports: Other (Pt wants a social work consult for rehab for his drug addiction.) Objective Vital Signs: Vital Signs - 24 hr 10/10/18 10/10/18 10/10/18 09:22 10:44 12:00 Temperature 37.7 C H 37.0 C Heart Rate 120 H 120 H Heart Rate [ 112 H Monitoring electrodes] Respiratory 21 14 23 Rate Blood Pressure 112/60 112/60 Blood Pressure [Left Brachial artery] Blood Pressure 103/44 L [Right Brachial artery] O2 Saturation 96 95 99 10/10/18 10/10/18 10/10/18 12:46 13:00 14:00 Temperature 37.3 C Heart Rate Heart Rate [ 109 H 107 H Monitoring electrodes] Respiratory 21 24 Rate Blood Pressure Blood Pressure 104/62 111/57 L [Left Brachial artery] Blood Pressure 94/53 L [Right Brachial artery] O2 Saturation 100 97 10/10/18 10/10/18 10/10/18 15:00 16:00 17:00 Temperature Heart Rate Heart Rate [ 102 H 98 92 Monitoring electrodes] Respiratory 25 H 21 12 Rate Blood Pressure Blood Pressure [Left Brachial artery] Blood Pressure 112/55 L 116/65 109/65 [Right Brachial artery] O2 Saturation 97 99 100 10/10/18 10/10/18 10/10/18 18:00 19:00 19:14 Temperature 36.6 C Heart Rate Heart Rate [ 89 93 Monitoring electrodes] Respiratory 16 16 Rate Blood Pressure Blood Pressure [Left Brachial artery] Blood Pressure 99/55 L 98/58 L [Right Brachial artery] O2 Saturation 97 97 10/10/18 10/10/18 10/10/18 20:00 21:00 22:00 Temperature Heart Rate Heart Rate [ 95 88 73 Monitoring electrodes] Respiratory 15 15 16 Rate Blood Pressure Blood Pressure [Left Brachial artery] Blood Pressure 90/50 L 91/43 L 94/51 L [Right Brachial artery] O2 Saturation 97 99 99 10/10/18 10/10/18 10/11/18 23:00 23:58 00:15 Temperature 36.9 C Heart Rate Heart Rate [ 74 91 Monitoring electrodes] Respiratory 15 14 Rate Blood Pressure Blood Pressure [Left Brachial artery] Blood Pressure 93/47 L 91/40 L [Right Brachial artery] O2 Saturation 97 97 10/11/18 10/11/18 10/11/18 01:00 01:27 02:00 Temperature Heart Rate Heart Rate [ 69 79 Monitoring electrodes] Respiratory 15 15 Rate Blood Pressure Blood Pressure [Left Brachial artery] Blood Pressure 78/40 L 95/47 L 96/48 L [Right Brachial artery] O2 Saturation 99 97 10/11/18 10/11/18 10/11/18 03:00 04:00 05:00 Temperature 36.9 C Heart Rate Heart Rate [ 65 69 76 Monitoring electrodes] Respiratory 14 14 14 Rate Blood Pressure Blood Pressure [Left Brachial artery] Blood Pressure 104/52 L 99/50 L 93/56 L [Right Brachial artery] O2 Saturation 100 99 100 10/11/18 10/11/18 06:00 07:00 Temperature Heart Rate Heart Rate [ 69 84 Monitoring electrodes] Respiratory 14 16 Rate Blood Pressure Blood Pressure [Left Brachial artery] Blood Pressure 103/45 L 103/50 L [Right Brachial artery] O2 Saturation 98 100 Oxygen O2 Source Room air I&O (Last 24 Hrs): Intake and Output Totals x24h 10/09/18 10/10/18 10/11/18 23:59 23:59 23:59 Intake Total 6447.5 1339.000 Output Total 1600 550 Balance 4847.5 789.000 General: Alert, Oriented x3 HEENT: Mucous membr. moist/pink Neck: Supple Neuro: Non Focal Cardiovascular: Regular rate Respiratory: No respiratory distress Abdomen: Soft Extremities: No edema - Results Results: Laboratory Results WBC 23.7 x10^3/uL (4.8-10.8) H 10/11/18 05:15 RBC 3.98 10^6/uL (4.70-6.10) L 10/11/18 05:15 Hgb 12.1 g/dL (14.0-18.0) L 10/11/18 05:15 Hct 36.7 % (42.0-52.0) L 10/11/18 05:15 MCV 92.3 fL (80.0-94.0) 10/11/18 05:15 MCH 30.4 pg (27.0-31.0) 10/11/18 05:15 MCHC 32.9 g/dL (32.0-36.0) 10/11/18 05:15 RDW 13.5 % (12.0-15.0) 10/11/18 05:15 Plt Count 170 10^3/uL (130-450) 10/11/18 05:15 MPV 7.5 fL (7.4-11.4) 10/11/18 05:15 Neut # (Auto) Not Reportable 10/11/18 05:15 Lymph # (Auto) Not Reportable 10/11/18 05:15 [place] # (Auto) Not Reportable 10/11/18 05:15 Eos # (Auto) Not Reportable 10/11/18 05:15 Baso # (Auto) Not Reportable 10/11/18 05:15 Absolute Nucleated RBC Not Reportable 10/11/18 05:15 Total Counted 100 10/11/18 05:15 Band Neuts % (Manual) 25 % (0-10) H 10/11/18 05:15 Abnorm Lymph % (Manual) 0 % 10/11/18 05:15 Metamyelocytes % 2 % (-0) H 10/10/18 06:16 Myelocytes % 2 % (-0) H 10/10/18 06:16 Nucleated RBC % Not Reportable 10/11/18 05:15 Neutrophils # (Manual) 19.2 10^3/uL (1.5-6.6) H 10/11/18 05:15 Lymphocytes # (Manual) 3.1 10^3/uL (1.5-3.5) 10/11/18 05:15 Monocytes # (Manual) 1.2 10^3/uL (0.0-1.0) H 10/11/18 05:15 Eosinophils # (Manual) 0.2 10^3/uL (0-0.7) 10/11/18 05:15 Basophils # (Manual) 0.0 10^3/uL (0-0.1) 10/11/18 05:15 Differential Comment MANUAL DIFFERENTIAL 10/11/18 05:15 Platelet Estimate NORMAL (130-450,000) (NORMAL) 10/11/18 05:15 RBC Morph Micro Appear NORMAL APPEARANCE (NORMAL) 10/11/18 05:15 PT 12.8 secs (9.9-12.6) H 10/10/18 06:05 INR 1.1 (0.8-1.2) 10/10/18 06:05 VBG pH 7.404 (7.31-7.41) 10/11/18 05:15 Ionized Calcium 1.06 mmol/L (1.15-1.33) L 10/11/18 05:15 Sodium 135 mmol/L (135-145) 10/11/18 05:15 Potassium 3.7 mmol/L (3.5-5.0) 10/11/18 05:15 Chloride 103 mmol/L (101-111) 10/11/18 05:15 Carbon Dioxide 27 mmol/L (21-32) 10/11/18 05:15 Anion Gap 5.0 (6-13) L 10/11/18 05:15 BUN 16 mg/dL (6-20) 10/11/18 05:15 Creatinine 0.9 mg/dL (0.6-1.2) 10/11/18 05:15 Estimated GFR (MDRD) 106 (>89) 10/11/18 05:15 Glucose 92 mg/dL (70-100) 10/11/18 05:15 Lactic Acid 1.6 mmol/L (0.5-2.2) 10/10/18 07:51 Calcium 7.7 mg/dL (8.5-10.3) L 10/11/18 05:15 Phosphorus 2.6 mg/dL (2.5-4.6) 10/11/18 05:15 Magnesium 1.6 mg/dL (1.7-2.8) L 10/11/18 05:15 Total Bilirubin 0.7 mg/dL (0.2-1.0) 10/11/18 05:15 AST 35 IU/L (10-42) 10/11/18 05:15 ALT 36 IU/L (10-60) 10/11/18 05:15 Alkaline Phosphatase 63 IU/L (42-121) 10/11/18 05:15 Total Creatine Kinase 333 IU/L (22-269) H 10/10/18 06:16 Total Protein 5.1 g/dL (6.7-8.2) L 10/11/18 05:15 Albumin 2.6 g/dL (3.2-5.5) L 10/11/18 05:15 Globulin 2.5 g/dL (2.1-4.2) 10/11/18 05:15 Albumin/Globulin Ratio 1.0 (1.0-2.2) 10/11/18 05:15 Lipase 19 U/L (22-51) L 10/10/18 06:16 Urine Color YELLOW 10/10/18 06:39 Urine Clarity CLEAR (CLEAR) 10/10/18 06:39 Urine pH 6.0 PH (5.0-7.5) 10/10/18 06:39 Ur Specific [place] 1.025 (1.002-1.030) 10/10/18 06:39 Urine Protein TRACE mg/dL (NEGATIVE) 10/10/18 06:39 Urine Glucose (UA) NEGATIVE mg/dL (NEGATIVE) 10/10/18 06:39 Urine Ketones NEGATIVE mg/dL (NEGATIVE) 10/10/18 06:39 Urine Occult Blood TRACE-INTA (NEGATIVE) 10/10/18 06:39 Urine Nitrite NEGATIVE (NEGATIVE) 10/10/18 06:39 Urine Bilirubin NEGATIVE (NEGATIVE) 10/10/18 06:39 Urine Urobilinogen 0.2 (NORMAL) E.U./dL (NORMAL) 10/10/18 06:39 Ur Leukocyte Esterase NEGATIVE (NEGATIVE) 10/10/18 06:39 Ur Microscopic Review NOT INDICATED 10/10/18 06:39 Urine Culture Comments NOT INDICATED 10/10/18 06:39 CSF Color COLORLESS (COLORLESS) 10/10/18 09:15 CSF Clarity CLEAR (CLEAR) 10/10/18 09:15 Xanthrochromic ABSENT (ABSENT) 10/10/18 09:15 CSF WBC 1 /mm^3 (0-5) 10/10/18 09:15 CSF RBC 0 /mm^3 (0-1) 10/10/18 09:15 CSF Cell Count Tube # CSF TUBE# 3 10/10/18 09:15 CSF Glucose 68 mg/dL (45-70) 10/10/18 09:15 CSF Total Protein 35 mg/dL (15-45) 10/10/18 09:15 Salicylates < 6.0 mg/dL 10/10/18 06:16 Urine Opiates Screen POSITIVE (NEGATIVE) H 10/10/18 06:39 Ur Oxycodone Screen NEGATIVE (NEGATIVE) 10/10/18 06:39 Urine Methadone Screen NEGATIVE (NEGATIVE) 10/10/18 06:39 Ur Propoxyphene Screen NEGATIVE (NEGATIVE) 10/10/18 06:39 Acetaminophen < 10 ug/mL (10-30) L 10/10/18 06:16 Ur Barbiturates Screen NEGATIVE (NEGATIVE) 10/10/18 06:39 Ur Tricyclics Screen NEGATIVE (NEGATIVE) 10/10/18 06:39 Ur Phencyclidine Scrn NEGATIVE (NEGATIVE) 10/10/18 06:39 Ur Amphetamine Screen POSITIVE (NEGATIVE) H 10/10/18 06:39 U Methamphetamines Scrn POSITIVE (NEGATIVE) H 10/10/18 06:39 U Benzodiazepines Scrn NEGATIVE (NEGATIVE) 10/10/18 06:39 Urine Cocaine Screen NEGATIVE (NEGATIVE) 10/10/18 06:39 U Cannabinoids Screen POSITIVE (NEGATIVE) H 10/10/18 06:39 Ethyl Alcohol < 5.0 mg/dL 10/10/18 06:16 Influenza A (Rapid) Negative (Negative) 10/10/18 08:41 Influenza B (Rapid) Negative (Negative) 10/10/18 08:41
[2018-10-11] MEDS: MEROPENEM 1 GM in SODIUM CHLORIDE 0.9% MINIBAG 100 ML IV SCH ×2 (09:18→15:48)
[2018-10-11 09:46] LABS: VANCOMYCIN,TROUGH 17.6 ug/mL (10.0-20.0)
[2018-10-11] MEDS: CARVEDILOL 3.125 MG TABLET PO SCH ×2 (10:52→20:52)
[2018-10-11] MEDS: LISINOPRIL 5 MG TABLET PO SCH (12:32)
[2018-10-12] MEDS: LACTATED RINGERS 1,000 ML IV SCH ×3 (00:06→21:27)
[2018-10-12] MEDS: MEROPENEM 1 GM in SODIUM CHLORIDE 0.9% MINIBAG 100 ML IV SCH ×4 (00:06→23:53)
[2018-10-12] MEDS: SODIUM CHLORIDE FLUSH 0.9% 10 ML SYRINGE IVP SCH ×3 (00:10→18:29)
[2018-10-12] MEDS: VANCOMYCIN INJ 1 GM in SODIUM CHLORIDE 0.9% 250 ML IV SCH ×3 (02:09→18:36)
[2018-10-12] MEDS: HYDROmorphone 1 MG/ML CARPUJECT IVP PRN ×4 (04:26→19:11)
[2018-10-12 05:29] LABS: BASOPHILS # (AUTO) 0.1 10^3/uL (0.0-0.1); BASOPHILS % (AUTO) 0.4 %; EOSINOPHILS # (AUTO) 0.5 10^3/uL (0.0-0.7); EOSINOPHILS % (AUTO) 2.6 %; HGB - HEMOGLOBIN 12.1 g/dL (14.0-18.0); LYMPHOCYTES # (AUTO) 2.6 10^3/uL (1.5-3.5); LYMPHOCYTES % (AUTO) 13.3 %; MEAN CORPUSCULAR HEMOGLOBIN 30.8 pg (27.0-31.0); MEAN CORPUSCULAR HGB CONC 33.1 g/dL (32.0-36.0); MEAN CORPUSCULAR VOLUME 92.9 fL (80.0-94.0); MEAN PLATELET VOLUME 7.7 fL (7.4-11.4); MONOCYTES # (AUTO) 1.4 10^3/uL (0.0-1.0); MONOCYTES % (AUTO) 7.1 %; NEUTROPHILS # (AUTO) 14.8 10^3/uL (1.5-6.6); NEUTROPHILS % (AUTO) 76.6 %; PLT - PLATELET COUNT 165 10^3/uL (130-450); RED BLOOD COUNT 3.93 10^6/uL (4.70-6.10); RED CELL DISTRIBUTION WIDTH 13.8 % (12.0-15.0); WHITE BLOOD COUNT 19.3 x10^3/uL (4.8-10.8)
[2018-10-12 05:34] LABS: VBG PH 7.365 (7.31-7.41)
[2018-10-12 05:49] LABS: ALBUMIN 2.6 g/dL (3.2-5.5); BILIRUBIN,TOTAL 0.5 mg/dL (0.2-1.0); CALCIUM 7.9 mg/dL (8.5-10.3); PHOSPHORUS 2.7 mg/dL (2.5-4.6); TOTAL PROTEIN 5.1 g/dL (6.7-8.2)
[2018-10-12] MEDS: CARVEDILOL 3.125 MG TABLET PO SCH ×2 (09:01→21:27)
[2018-10-12] MEDS: DICYCLOMINE 10 MG CAPSULE PO SCH ×4 (09:12→21:27)
[2018-10-12] MEDS: FAMOTIDINE 20 MG/50 ML 50 ML IV SCH ×2 (09:12→21:27)
[2018-10-12] MEDS ORDERED: GADOBUTROL 7.5 MMOL/7.5 ML VIAL ONE (10:50)
[2018-10-12] MEDS ORDERED: GADOBUTROL 7.5 MMOL/7.5 ML VIAL IVP ONE (11:25)
[2018-10-12] MEDS: NICOTINE 21 MG PATCH TOP SCH (11:46)
--- NOTE | 2018-10-12 12:32 | MRI Report ---
Reason: Sepsis,posterior neck pain,eval for epidral absces Procedure Date: 10/12/2018 Accession Number: [id number] / [id number] Procedure: MRI - Cervical Spine W/WO CPT Code: FULL RESULT: EXAM: MRI CERVICAL SPINE WITHOUT AND WITH CONTRAST EXAM DATE: 10/12/2018 11:37 AM. CLINICAL HISTORY: Sepsis, posterior neck pain, evaluate for epidural abscess. COMPARISON: None. TECHNIQUE: Multiplanar, multisequence T1-weighted and fluid-sensitive sequences of the cervical spine before and after administration of intravenous contrast. Other: None. IV contrast: 7.5 cc Gadavist. FINDINGS: Neurologic Structures: The visualized posterior fossa structures are unremarkable. No signal abnormality in the visualized spinal cord. Alignment: No scoliosis or spondylolisthesis. Bone Marrow: No gross fractures or bone lesions. No marrow edema or abnormal enhancement. Interspace Levels/Facets: C1-C2: Unremarkable. C2-C3: Unremarkable. C3-C4: Mild right foraminal stenosis from Luschka joint hypertrophic spurring. There is moderate to severe left neural foramen entry zone stenosis from posterior left paracentral and left posterolateral 3 mm disk protrusion osteophyte complex. Mild central spinal canal stenosis. Mild effacement anterior left cervical cord without cord signal abnormality from a posterior left paracentral 3 mm disk protrusion osteophyte complex. Mild right facet joint arthrosis. C4-C5: Negative for spinal canal stenosis or foraminal stenosis. Moderate left facet joint arthrosis. C5-C6: Severe left foraminal stenosis from left posterior paracentral left posterolateral broad 4 mm disk extrusion osteophyte complex. Mild central spinal canal stenosis. Posterior left paracentral disk extrusion contacts the anterior cervical cord without cord deformity or cord signal abnormality. Moderate right foraminal stenosis from Luschka joint degenerative hypertrophy. Moderate disk degeneration. C6-C7: Right neural foramen is negative for stenosis. Moderate to severe left foraminal stenosis from a 3 mm foraminal disk protrusion osteophyte complex. Negative for central spinal canal stenosis. Mild left facet joint arthrosis. C7-T1: Negative for spinal canal stenosis or foraminal stenosis. Spinal Canal: No enhancing lesions within the spinal canal. No epidural abscess. Musculature: Normal. No edema, enhancement, or fatty atrophy. Other: The paravertebral and prevertebral soft tissues are normal. IMPRESSION: 1. The spinal cord from the cervicomedullary junction to T1 was negative for abnormal enhancement or signal abnormality. 2. Negative for diskitis, osteomyelitis or epidural abscess. 3. Moderate to severe left C3-C4 foraminal stenosis, mild central spinal canal stenosis and mild effacement of left anterior cervical cord from left posterior paracentral and left posterolateral 3 mm disk protrusion osteophyte complex. 4. Severe left C5-C6 foraminal stenosis from posterior left paracentral and left posterolateral 3 mm disk herniation osteophyte complex. RADIA
[2018-10-12] MEDS: LISINOPRIL 5 MG TABLET PO SCH (13:29)
--- NOTE | 2018-10-12 19:04 | PROVIDER PROGRESS NOTE ---
Assessment/Plan - Problem List (1) Severe sepsis Assessment/Plan: WBC is improving, after it did rise, on empiric antibiotics. Await bacterial culture and viral test results, which are all pending. CSF cultu re neg thus far. Continue empiric Vanco and Meropenam. (2) Cardiomyopathy Qualifiers: Cardiomyopathy type: unspecified Qualified Code(s): I42.9 - Cardiomyopathy, unspecified Assessment/Plan: Pt started on Coreg and SAVANA-I but is on hold for low BPs. Viral test results may help determine the cause. No loop diuretic or Spironolactone was started for the cardiomyopathy, since he came in with volume depletion. (3) RM (acute kidney injury) Assessment/Plan: Resolved with iv hydration. Pt now hydratingg adequately po. Will decrease iv rate and possibly stop tomorrow. No loop diuretic or Spironolactone was started for the cardiomyopathy, since he came in with volume depletion. (4) Polydrug abuse, continuous Assessment/Plan: Pt can be seen by Social Work for evaluation of mental health. He has voiced interest in an Inpatient rehab program. (5) Suicidal ideation Assessment/Plan: As above. Continue 1:1 observation. (6) Neck pain Assessment/Plan: The patient had undergone a spinal tap in ER, since his complaint was posterior neck pain, but today he reports this has been presnt for a year. Imaging ordered and shows degenerative changes out of proportion to his young age; possibly they are traumatic therefore. Continue pain control and consider Flexeril. (7) Leukopenia Assessment/Plan: No further low WBCs - Current Meds Current Meds: Current Medications Generic Name Dose Route Start Last Admin Trade Name Freq PRN Reason Stop Dose Admin Acetaminophen 650 mg 10/10/18 11:22 10/11/18 13:41 Tylenol PO 650 mg Q4HR PRN Administration Pain or Fever > 38C (100.4F) Carvedilol 3.125 mg 10/11/18 09:02 10/12/18 09:01 Coreg PO Not Given BID DEJA Dicyclomine HCl 10 mg 10/10/18 21:00 10/12/18 17:07 Bentyl PO 10 mg QID DEJA Administration Hydromorphone HCl 1 mg 10/10/18 12:22 10/12/18 14:02 Dilaudid Inj Carp IVP 1 mg Q2HR PRN Administration PAIN 8 - 10 Famotidine 50 mls @ 100 mls/hr 10/10/18 21:00 10/12/18 10:15 Pepcid 20 Mg/50 Ml IV Infused BID DEJA Infusion Meropenem 1 gm/ Sodium 100 mls @ 200 mls/hr 10/10/18 16:00 10/12/18 18:00 Chloride IV Infused Q8H DEJA Infusion Vancomycin HCl 1 gm/ Sodium 250 mls @ 167 mls/hr 10/10/18 18:00 10/12/18 18:36 Chloride IV 167 mls/hr Q8H DEJA Administration Lactated Ringer's 1,000 mls @ 80 mls/hr 10/11/18 09:01 10/12/18 18:00 Lr IV 80 mls/hr .[id number] DEJA Infusion Lisinopril 5 mg 10/11/18 12:00 10/12/18 13:29 Zestril PO Not Given 1200 DEJA Nicotine 1 patch 10/11/18 09:00 10/12/18 11:46 Nicoderm TOP 1 patch DAILY DEJA Administration Sodium Chloride 10 ml 10/10/18 17:00 10/12/18 18:29 Normal Saline Flush 0.9% IVP 10 ml 0100,0900,1700 DEJA Administration - Lab Result Fish Bone Diagrams: 10/12/18 04:50 10/12/18 04:50 - Additional Planning My Orders: My Active Orders 10/12/18 Social Work Consult [CONS] Routine 10/13/18 05:00 CALCIUM, IONIZED ([facility]) [BG] DAILYLAB CBC - COMP BLD CT W/AUTO DIFF [HEME] DAILYLAB COMPREHENSIVE METABOLIC PANEL [CHEM] DAILYLAB MAGNESIUM [CHEM] DAILYLAB PHOSPHORUS [CHEM] DAILYLAB 10/14/18 05:00 CBC - COMP BLD CT W/AUTO DIFF [HEME] DAILYLAB COMPREHENSIVE METABOLIC PANEL [CHEM] DAILYLAB Subjective - Subjective Patient Reports: Feeling Better, Other (Still has severe posterior neck pain, today he admits it's been there for a year.) Objective Vital Signs: Vital Signs - 24 hr 10/11/18 10/11/18 10/11/18 20:00 21:00 22:00 Temperature Heart Rate [ 68 60 52 L Monitoring electrodes] Respiratory 14 13 12 Rate Blood Pressure [Left Brachial artery] Blood Pressure 105/55 L 93/48 L 101/52 L [Right Brachial artery] O2 Saturation 99 10/11/18 10/12/18 10/12/18 23:00 00:00 01:00 Temperature 36.5 C Heart Rate [ 58 L 46 L 51 L Monitoring electrodes] Respiratory 13 11 L 13 Rate Blood Pressure 100/55 L 96/55 L 103/48 L [Left Brachial artery] Blood Pressure [Right Brachial artery] O2 Saturation 98 10/12/18 10/12/18 10/12/18 02:00 03:00 04:28 Temperature 36.9 C Heart Rate [ 50 L 50 L 55 L Monitoring electrodes] Respiratory 14 14 12 Rate Blood Pressure 105/54 L 105/57 L 96/57 L [Left Brachial artery] Blood Pressure [Right Brachial artery] O2 Saturation 99 10/12/18 10/12/18 10/12/18 05:00 07:00 07:32 Temperature Heart Rate [ 62 63 49 L Monitoring electrodes] Respiratory 17 16 13 Rate Blood Pressure 96/60 109/50 L 109/50 L [Left Brachial artery] Blood Pressure [Right Brachial artery] O2 Saturation 98 10/12/18 10/12/18 10/12/18 09:00 10:07 12:00 Temperature Heart Rate [ 74 65 58 L Monitoring electrodes] Respiratory 17 13 18 Rate Blood Pressure 121/63 118/63 97/56 L [Left Brachial artery] Blood Pressure [Right Brachial artery] O2 Saturation 99 99 10/12/18 10/12/18 10/12/18 13:00 14:00 15:00 Temperature 36.7 C Heart Rate [ 67 72 55 L Monitoring electrodes] Respiratory 11 L 22 15 Rate Blood Pressure 107/51 L 108/60 [Left Brachial artery] Blood Pressure 120/71 [Right Brachial artery] O2 Saturation 100 98 10/12/18 10/12/18 10/12/18 16:00 17:00 18:00 Temperature 36.7 C Heart Rate [ 53 L 57 L 62 Monitoring electrodes] Respiratory 14 14 17 Rate Blood Pressure 111/61 109/67 107/62 [Left Brachial artery] Blood Pressure [Right Brachial artery] O2 Saturation 98 98 Oxygen O2 Source Room air I&O (Last 24 Hrs): Intake and Output Totals x24h 10/10/18 10/11/18 10/12/18 23:59 23:59 23:59 Intake Total 6447.5 4641.500 5283.333 Output Total 1600 3975 4750 Balance 4847.5 1766.500 533.333 General: Alert, Oriented x3, Cooperative HEENT: Mucous membr. moist/pink Neck: Supple, No JVD Neuro: Non Focal Cardiovascular: Regular rate, No murmurs Respiratory: No respiratory distress, Breath sounds nml Abdomen: Soft Extremities: No edema - Results Results: Laboratory Results WBC 19.3 x10^3/uL (4.8-10.8) H 10/12/18 04:50 RBC 3.93 10^6/uL (4.70-6.10) L 10/12/18 04:50 Hgb 12.1 g/dL (14.0-18.0) L 10/12/18 04:50 Hct 36.5 % (42.0-52.0) L 10/12/18 04:50 MCV 92.9 fL (80.0-94.0) 10/12/18 04:50 MCH 30.8 pg (27.0-31.0) 10/12/18 04:50 MCHC 33.1 g/dL (32.0-36.0) 10/12/18 04:50 RDW 13.8 % (12.0-15.0) 10/12/18 04:50 Plt Count 165 10^3/uL (130-450) 10/12/18 04:50 MPV 7.7 fL (7.4-11.4) 10/12/18 04:50 Neut # (Auto) 14.8 10^3/uL (1.5-6.6) H 10/12/18 04:50 Lymph # (Auto) 2.6 10^3/uL (1.5-3.5) 10/12/18 04:50 [place] # (Auto) 1.4 10^3/uL (0.0-1.0) H 10/12/18 04:50 Eos # (Auto) 0.5 10^3/uL (0.0-0.7) 10/12/18 04:50 Baso # (Auto) 0.1 10^3/uL (0.0-0.1) 10/12/18 04:50 Absolute Nucleated RBC 0.01 x10^3/uL 10/12/18 04:50 Total Counted 100 10/11/18 05:15 Band Neuts % (Manual) 25 % (0-10) H 10/11/18 05:15 Abnorm Lymph % (Manual) 0 % 10/11/18 05:15 Metamyelocytes % 2 % (-0) H 10/10/18 06:16 Myelocytes % 2 % (-0) H 10/10/18 06:16 Nucleated RBC % 0.0 /100WBC 10/12/18 04:50 Neutrophils # (Manual) 19.2 10^3/uL (1.5-6.6) H 10/11/18 05:15 Lymphocytes # (Manual) 3.1 10^3/uL (1.5-3.5) 10/11/18 05:15 Monocytes # (Manual) 1.2 10^3/uL (0.0-1.0) H 10/11/18 05:15 Eosinophils # (Manual) 0.2 10^3/uL (0-0.7) 10/11/18 05:15 Basophils # (Manual) 0.0 10^3/uL (0-0.1) 10/11/18 05:15 Differential Comment MANUAL DIFFERENTIAL 10/11/18 05:15 Platelet Estimate NORMAL (130-450,000) (NORMAL) 10/11/18 05:15 RBC Morph Micro Appear NORMAL APPEARANCE (NORMAL) 10/11/18 05:15 PT 12.8 secs (9.9-12.6) H 10/10/18 06:05 INR 1.1 (0.8-1.2) 10/10/18 06:05 VBG pH 7.365 (7.31-7.41) 10/12/18 04:50 Ionized Calcium 1.12 mmol/L (1.15-1.33) L 10/12/18 04:50 Sodium 135 mmol/L (135-145) 10/12/18 04:50 Potassium 3.9 mmol/L (3.5-5.0) 10/12/18 04:50 Chloride 107 mmol/L (101-111) 10/12/18 04:50 Carbon Dioxide 26 mmol/L (21-32) 10/12/18 04:50 Anion Gap 2.0 (6-13) L 10/12/18 04:50 BUN 16 mg/dL (6-20) 10/12/18 04:50 Creatinine 1.0 mg/dL (0.6-1.2) 10/12/18 04:50 Estimated GFR (MDRD) 93 (>89) 10/12/18 04:50 Glucose 99 mg/dL (70-100) 10/12/18 04:50 Lactic Acid 1.6 mmol/L (0.5-2.2) 10/10/18 07:51 Calcium 7.9 mg/dL (8.5-10.3) L 10/12/18 04:50 Phosphorus 2.7 mg/dL (2.5-4.6) 10/12/18 04:50 Magnesium 2.0 mg/dL (1.7-2.8) 10/12/18 04:50 Total Bilirubin 0.5 mg/dL (0.2-1.0) 10/12/18 04:50 AST 26 IU/L (10-42) 10/12/18 04:50 ALT 30 IU/L (10-60) 10/12/18 04:50 Alkaline Phosphatase 67 IU/L (42-121) 10/12/18 04:50 Total Creatine Kinase 333 IU/L (22-269) H 10/10/18 06:16 Total Protein 5.1 g/dL (6.7-8.2) L 10/12/18 04:50 Albumin 2.6 g/dL (3.2-5.5) L 10/12/18 04:50 Globulin 2.5 g/dL (2.1-4.2) 10/12/18 04:50 Albumin/Globulin Ratio 1.0 (1.0-2.2) 10/12/18 04:50 Lipase 19 U/L (22-51) L 10/10/18 06:16 Urine Color YELLOW 10/10/18 06:39 Urine Clarity CLEAR (CLEAR) 10/10/18 06:39 Urine pH 6.0 PH (5.0-7.5) 10/10/18 06:39 Ur Specific [place] 1.025 (1.002-1.030) 10/10/18 06:39 Urine Protein TRACE mg/dL (NEGATIVE) 10/10/18 06:39 Urine Glucose (UA) NEGATIVE mg/dL (NEGATIVE) 10/10/18 06:39 Urine Ketones NEGATIVE mg/dL (NEGATIVE) 10/10/18 06:39 Urine Occult Blood TRACE-INTA (NEGATIVE) 10/10/18 06:39 Urine Nitrite NEGATIVE (NEGATIVE) 10/10/18 06:39 Urine Bilirubin NEGATIVE (NEGATIVE) 10/10/18 06:39 Urine Urobilinogen 0.2 (NORMAL) E.U./dL (NORMAL) 10/10/18 06:39 Ur Leukocyte Esterase NEGATIVE (NEGATIVE) 10/10/18 06:39 Ur Microscopic Review NOT INDICATED 10/10/18 06:39 Urine Culture Comments NOT INDICATED 10/10/18 06:39 CSF Color COLORLESS (COLORLESS) 10/10/18 09:15 CSF Clarity CLEAR (CLEAR) 10/10/18 09:15 Xanthrochromic ABSENT (ABSENT) 10/10/18 09:15 CSF WBC 1 /mm^3 (0-5) 10/10/18 09:15 CSF RBC 0 /mm^3 (0-1) 10/10/18 09:15 CSF Cell Count Tube # CSF TUBE# 3 10/10/18 09:15 CSF Glucose 68 mg/dL (45-70) 10/10/18 09:15 CSF Total Protein 35 mg/dL (15-45) 10/10/18 09:15 Last Dose Date 10/11/18 10/11/18 09:31 Last Dose Time 0400 10/11/18 09:31 Vancomycin Trough 17.6 ug/mL (10.0-20.0) 10/11/18 09:31 Salicylates < 6.0 mg/dL 10/10/18 06:16 Urine Opiates Screen POSITIVE (NEGATIVE) H 10/10/18 06:39 Ur Oxycodone Screen NEGATIVE (NEGATIVE) 10/10/18 06:39 Urine Methadone Screen NEGATIVE (NEGATIVE) 10/10/18 06:39 Ur Propoxyphene Screen NEGATIVE (NEGATIVE) 10/10/18 06:39 Acetaminophen < 10 ug/mL (10-30) L 10/10/18 06:16 Ur Barbiturates Screen NEGATIVE (NEGATIVE) 10/10/18 06:39 Ur Tricyclics Screen NEGATIVE (NEGATIVE) 10/10/18 06:39 Ur Phencyclidine Scrn NEGATIVE (NEGATIVE) 10/10/18 06:39 Ur Amphetamine Screen POSITIVE (NEGATIVE) H 10/10/18 06:39 U Methamphetamines Scrn POSITIVE (NEGATIVE) H 10/10/18 06:39 U Benzodiazepines Scrn NEGATIVE (NEGATIVE) 10/10/18 06:39 Urine Cocaine Screen NEGATIVE (NEGATIVE) 10/10/18 06:39 U Cannabinoids Screen POSITIVE (NEGATIVE) H 10/10/18 06:39 Ethyl Alcohol < 5.0 mg/dL 10/10/18 06:16 Influenza A (Rapid) Negative (Negative) 10/10/18 08:41 Influenza B (Rapid) Negative (Negative) 10/10/18 08:41
[2018-10-13] MEDS: SODIUM CHLORIDE FLUSH 0.9% 10 ML SYRINGE IVP SCH ×3 (01:30→17:16)
[2018-10-13] MEDS: VANCOMYCIN INJ 1 GM in SODIUM CHLORIDE 0.9% 250 ML IV SCH ×2 (01:57→10:56)
[2018-10-13] MEDS: LACTATED RINGERS 1,000 ML IV SCH (02:05)
[2018-10-13 06:10] LABS: BASOPHILS # (AUTO) 0.1 10^3/uL (0.0-0.1); BASOPHILS % (AUTO) 0.5 %; EOSINOPHILS # (AUTO) 0.3 10^3/uL (0.0-0.7); HGB - HEMOGLOBIN 13.3 g/dL (14.0-18.0); LYMPHOCYTES # (AUTO) 2.4 10^3/uL (1.5-3.5); LYMPHOCYTES % (AUTO) 22.8 %; MEAN CORPUSCULAR HEMOGLOBIN 31.1 pg (27.0-31.0); MEAN CORPUSCULAR HGB CONC 33.6 g/dL (32.0-36.0); MEAN CORPUSCULAR VOLUME 92.3 fL (80.0-94.0); MONOCYTES # (AUTO) 0.6 10^3/uL (0.0-1.0); NEUTROPHILS # (AUTO) 7.1 10^3/uL (1.5-6.6); NEUTROPHILS % (AUTO) 67.7 %; PLT - PLATELET COUNT 210 10^3/uL (130-450); RED BLOOD COUNT 4.29 10^6/uL (4.70-6.10); RED CELL DISTRIBUTION WIDTH 13.4 % (12.0-15.0); VBG PH 7.392 (7.31-7.41); WHITE BLOOD COUNT 10.5 x10^3/uL (4.8-10.8)
[2018-10-13 06:25] LABS: ALBUMIN 3.1 g/dL (3.2-5.5); ALBUMIN/GLOBULIN RATIO 1.1 (1.0-2.2); BILIRUBIN,TOTAL 0.5 mg/dL (0.2-1.0); CALCIUM 8.5 mg/dL (8.5-10.3); CREATININE 0.9 mg/dL (0.6-1.2); MAGNESIUM 1.9 mg/dL (1.7-2.8)
--- NOTE | 2018-10-13 07:33 | PROVIDER PROGRESS NOTE ---
Subjective - Prog Note Date Prog Note Date: 10/13/18 Prog Note Time: 07:31 - Subjective Pt reports feeling: Improved Subjective: He is awake, alert. Sitting up in bed. Eating 100% of his breakfast. We spoke about what brought him to this point. Unfortunately he was abandoned at the age of 4 by a substance abusing mother. His father introduced him to methamphetamines before he was 13. He has been a regular user of methamph etamines and heroin off and on since that time. He describes his life as not worth living. He has no active thought process about killing himself but has had a couple of suicide attempts. His last one was on his birthday in January. [place] and actually got his legs over the railing and was about to push himself off when he change his mind at the last second and was clean to the railing. He got back over on the right side, got on his bike and then just bicycle home. He still thinks that his life is not worth living. The abdominal pain and all of the lab abnormalities accompanying it have resolved. He came in with multisystem organ changes with an elevated creatinine of 1.3, bilirubin of 1.2, AST 103, ALT 65, alk phos 185, CK 333. CT of the abdomen showed possible early partial small bowel obstruction but clinically, on exam, that was not present. He did not have pancreatitis lipase was 19. White cell count was initially 2.7 and rebounded 23.7 and is now normal. Lactic acid was 1.6 on admission and normal. He does state that he injected intravenous alcohol a couple of days before all of his happened. He asked what his hepatitis C and his HIV titers are. He had them done at the blood bank because he was donating blood a while back. He never did find out those results and was unable to donate blood. He thought we had repeated his titers here and explained to him we did not. I also explained to him that he has a new cardiomyopathy. He does not have valvular heart disease and no vegetations. He has normal pulmonary pressures. But he is global hypokinesis with an ejection fraction of 30% and the left atrium is normal in size. He asked me what that could be from and I explained that it could be both from his heroin abuse as well as methamphetamine abuse. At this time he denies any chest pain, palpitations, shortness of breath. No abdominal pain. His last bowel movement was October 11. No diarrhea. He has been consistently bradycardic in the 50s and sometimes we have to skip his new dosing of Coreg and lisinopril because of it. Current Medications - Current Medications Current Medications: Active Medications Acetaminophen (Tylenol) 650 mg PO Q4HR PRN PRN Reason: Pain or Fever > 38C (100.4F) Last Admin: 10/11/18 13:41 Dose: 650 mg Carvedilol (Coreg) 3.125 mg PO BID [facility] Last Admin: 10/12/18 21:27 Dose: Not Given Dicyclomine HCl (Bentyl) 10 mg PO QID [facility] Last Admin: 10/12/18 21:27 Dose: 10 mg Hydromorphone HCl (Dilaudid Inj Carp) 1 mg IVP Q2HR PRN PRN Reason: PAIN 8 - 10 Last Admin: 10/12/18 19:11 Dose: 1 mg Famotidine (Pepcid 20 Mg/50 Ml) 50 mls @ 100 mls/hr IV BID [facility] Last Infusion: 10/12/18 22:00 Dose: Infused Meropenem 1 gm/ Sodium (Chloride) 100 mls @ 200 mls/hr IV Q8H [facility] Last Infusion: 10/13/18 00:30 Dose: Infused Vancomycin HCl 1 gm/ Sodium (Chloride) 250 mls @ 167 mls/hr IV Q8H [facility] Last Infusion: 10/13/18 03:30 Dose: Infused Lactated Ringer's (Lr) 1,000 mls @ 80 mls/hr IV .[id number] [facility] Last Admin: 10/13/18 02:05 Dose: 80 mls/hr Lisinopril (Zestril) 5 mg PO 1200 [facility] Last Admin: 10/12/18 13:29 Dose: Not Given Lorazepam (Ativan) 0.5 mg SL Q6H PRN PRN Reason: Anxiety Nicotine (Nicoderm) 1 patch TOP DAILY [facility] Last Admin: 10/12/18 11:46 Dose: 1 patch Prochlorperazine Edisylate (Compazine Inj) 10 mg IVP Q6HR PRN PRN Reason: Nausea / Vomiting Sodium Chloride (Normal Saline Flush 0.9%) 10 ml IVP 0100,0900,1700 DEJA Last Admin: 10/13/18 01:30 Dose: Not Given Sodium Chloride (Normal Saline Flush 0.9%) 10 ml IVP PRN PRN PRN Reason: NEEDED PER PROVIDER ORDERS No Known Home Medications 10/10/18 THE ABOVE LIST WAS CHANGED TO BELOW: Active Medications Generic Name Dose Route Start Last Admin Trade Name Nguyễn PRN Reason Stop Dose Admin Acetaminophen 650 mg 10/10/18 11:22 10/11/18 13:41 Tylenol PO 650 mg Q4HR PRN Administration Pain or Fever > 38C (100.4F) Carvedilol 3.125 mg 10/11/18 09:02 10/13/18 09:22 Coreg PO 3.125 mg BID DEJA Administration Lisinopril 5 mg 10/11/18 12:00 10/13/18 12:06 Zestril PO 5 mg 1200 DEJA Administration Lorazepam 0.5 mg 10/10/18 20:46 Ativan SL Q6H PRN Anxiety Metronidazole 500 mg 10/13/18 13:00 Flagyl PO Q8H DEJA Nicotine 1 patch 10/11/18 09:00 10/13/18 09:22 Nicoderm TOP 1 patch DAILY DEJA Administration Sodium Chloride 10 ml 10/10/18 17:00 10/13/18 09:22 Normal Saline Flush 0.9% IVP Not Given 0100,0900,1700 DEJA Sodium Chloride 10 ml 10/10/18 11:22 Normal Saline Flush 0.9% IVP PRN PRN NEEDED PER PROVIDER ORDERS No Known Home Medications 10/10/18 Objective - Vital Signs/Intake & Output Reviewed Vital Signs: Yes Vital Signs: Vital Signs Temp Pulse Resp BP Pulse Ox 10/13/18 07:00 55 L 18 113/61 98 10/13/18 06:00 71 18 133/90 H 97 10/13/18 05:00 36.9 C 55 L 18 125/78 100 10/13/18 04:00 71 17 114/84 H Intake & Output: Intake & Output 10/10/18 10/11/18 10/12/18 10/13/18 23:59 23:59 23:59 23:59 Intake Total 6447.5 4641.500 6550.000 650 Output Total 1600 2875 5450 3300 Balance 4847.5 3509.428 0245.000 -2650 - Objective General Appearance: positive: No acute distress, Alert, Other (Young slender white male who is well-nourished well-developed in no acute distress, sitting comfortably in bed, no diaphoresis no anxiety, no tremors eating his breakfast. Able to answer all my questions appropriately and lucidly.) Eyes Bilateral: positive: PERRL, EOMI ENT: positive: Pharynx nml, Other (Has lost some of his teeth and has dental caries and halitosis) Neck: positive: No JVD. negative: Stiff neck, Carotid bruit Respiratory: positive: Chest non-tender. negative: Wheezes, Rales, Rhonchi Cardiovascular: positive: Regular rate & rhythm. negative: Systolic murmur, Gallop/S4, Friction rub Abdomen: positive: Non-tender, No organomegaly, Nml bowel sounds, No distention Skin: positive: Warm, Dry Extremities: positive: Non-tender, Full ROM, Nml appearance Neurologic/Psychiatric: positive: Oriented x3, CN's nml (2-12), Motor nml, Sensation nml, Other (No tremors, no anxiety, no fast pressured speech) Reflexes: Bicep (R): 1+, Bicep (L): 1+, Knee (R): 1+, Knee (L): 1+, Ankle (R): 0, Ankle (L): 0 Babinski Reflex: Right: Down, Left: Down - Lab Results Fish Bones: 10/13/18 05:25 10/13/18 05:25 Other Labs: Lab Results x24hrs 10/13/18 10/13/18 10/13/18 Range/Units 05:25 05:25 05:25 WBC 10.5 (4.8-10.8) x10^3/uL RBC 4.29 L (4.70-6.10) 10^6/uL Hgb 13.3 L (14.0-18.0) g/dL Hct 39.6 L (42.0-52.0) % MCV 92.3 (80.0-94.0) fL MCH 31.1 H (27.0-31.0) pg MCHC 33.6 (32.0-36.0) g/dL RDW 13.4 (12.0-15.0) % Plt Count 210 (130-450) 10^3/uL MPV 8.0 (7.4-11.4) fL Neut # (Auto) 7.1 H (1.5-6.6) 10^3/uL Lymph # (Auto) 2.4 (1.5-3.5) 10^3/uL [place] # (Auto) 0.6 (0.0-1.0) 10^3/uL Eos # (Auto) 0.3 (0.0-0.7) 10^3/uL Baso # (Auto) 0.1 (0.0-0.1) 10^3/uL Absolute Nucleated RBC 0.01 x10^3/uL Nucleated RBC % 0.0 /100WBC VBG pH 7.392 (7.31-7.41) Ionized Calcium 1.13 L (1.15-1.33) mmol/L Sodium 138 (135-145) mmol/L Potassium 3.8 (3.5-5.0) mmol/L Chloride 102 (101-111) mmol/L Carbon Dioxide 28 (21-32) mmol/L Anion Gap 8.0 (6-13) BUN 11 (6-20) mg/dL Creatinine 0.9 (0.6-1.2) mg/dL Estimated GFR (MDRD) 106 (>89) Glucose 107 H (70-100) mg/dL Calcium 8.5 (8.5-10.3) mg/dL Phosphorus 3.0 (2.5-4.6) mg/dL Magnesium 1.9 (1.7-2.8) mg/dL Total Bilirubin 0.5 (0.2-1.0) mg/dL AST 25 (10-42) IU/L ALT 29 (10-60) IU/L Alkaline Phosphatase 79 (42-121) IU/L Total Protein 6.0 L (6.7-8.2) g/dL Albumin 3.1 L (3.2-5.5) g/dL Globulin 2.9 (2.1-4.2) g/dL Albumin/Globulin Ratio 1.1 (1.0-2.2) Sepsis Event Note (H) - Evaluation Current Stage of Sepsis: Resolved Possible source of Sepsis: positive: Unknown - Sepsis Criteria Sepsis Criteria: Recorded Temperature greater than 38.3C or Less than 36C, WBC count greater than 10% bands, WBC count greater than 12,000 or less than 4000, MAP less than 65 mmHg, Hepatic: Bilirubin greater than 2mg/dl Assessment/Plan - Problem List (1) Severe sepsis Impression: He presented as a history of kidney stones, IV drug abuse, positive hepatitis C and pending HIV results who is still currently using heroin, methamphetamines, and marijuana presents with severe abdominal pain, diffuse myalgias, fever. Blood pressure was low with a mean arterial pressure less than 65 and a systolic 96. Heart rate was 140. Fever was 39. And white cell count was 2.7 with a subsequent rise to 23.7. Bands were 20% and 25% respectively. So far blood cultures have been negative, CSF culture with LP negative, CT of abdomen and pelvis is negative for pathology, chest x-ray negative for pneumonia, urine negative for UTI. Echocardiogram shows his ejection fraction is moderately imp aired at 30-35%, global hypokinesis, and no valvular heart disease seen. WBC is improving, after it did rise, on empiric antibiotics. Stop empiric Vanco and Meropenam, Day #4. No source of infection has been found. Cultures have been negative. And now he tells us that he injected IV alcohol. This may have been the source of his problems. After stopping antibiotics we will monitor carefully for spiked a fever. Reculture if that happens. (2) Cardiomyopathy Qualifiers: Cardiomyopathy type: unspecified Qualified Code(s): I42.9 - Cardiomyopathy, unspecified Assessment/Plan: New diagnosis this admission. He has had 1 dose of Coreg, 1 dose of lisinopril. This morning he should be receiving them since his systolic was 133 and diastolic 90. An hour later he was 113/61. Viral test results may help determine the cause. He also may have cardiomyopathy from his methamphetamines. No loop diuretic or Spironolactone was started for the cardiomyopathy, since he came in with volume depletion. Echocardiogram: His ejection fraction is moderately impaired at 30-35%, global hypokinesis, and no valvular heart disease seen. (3) RM (acute kidney injury) Assessment/Plan: Resolved with iv hydration. Pt now hydratingg adequately po. Stopped IV fluids today No loop diuretic or Spironolactone was started for the cardiomyopathy, since he came in with volume depletion. (4) Polydrug abuse, continuous Assessment/Plan: Tox screen on admission was positive for opiates, amphetamines, methamphetamines, cannabinoids. He endorses the use of heroin, cannabis, methamphetamines, And IV alcohol in the days before admission. Pt can be seen by Social Work for evaluation of mental health. He has voiced interest in an Inpatient rehab program. (5) Suicidal ideation Assessment/Plan: As above. Continue 1:1 observation. (6) Neck pain Assessment/Plan: The patient had undergone a spinal tap in ER, since his complaint was posterior neck pain, but today he reports this has been presnt for a year. Imaging ordered and shows degenerative changes out of proportion to his young age; possibly they are traumatic therefore.He also has disc disease that is quite severe.All IV pain medicine stopped. Continue pain control and consider Flexeril. (7) Leukopenia Assessment/Plan: Resolved. No further low WBCs
[2018-10-13] MEDS: HYDROmorphone 1 MG/ML CARPUJECT IVP PRN (08:08)
[2018-10-13] MEDS: MEROPENEM 1 GM in SODIUM CHLORIDE 0.9% MINIBAG 100 ML IV SCH (08:42)
[2018-10-13] MEDS: FAMOTIDINE 20 MG/50 ML 50 ML IV SCH (09:15)
[2018-10-13] MEDS: DICYCLOMINE 10 MG CAPSULE PO SCH (09:22)
[2018-10-13] MEDS: CARVEDILOL 3.125 MG TABLET PO SCH (09:22)
[2018-10-13] MEDS: NICOTINE 21 MG PATCH TOP SCH (09:22)
[2018-10-13] MEDS: LISINOPRIL 5 MG TABLET PO SCH (12:06)
[2018-10-13] MEDS ORDERED: IBUPROFEN 600 MG TABLET PO PRN (12:25)
[2018-10-13] MEDS ORDERED: metroNIDAZOLE 250 MG TABLET PO SCH (13:00)
[2018-10-13 13:06] LABS: HSV 1 IGG TYPE SPECIFIC AB <0.90 index; HSV 2 IGG TYPE SPECIFIC AB <0.90 index
[2018-10-13 19:28] VITALS: BP 126/77
--- NOTE | 2018-10-13 20:24 | Discharge Plan ---
Discharge Plan Disposition: Home, Self Care Condition: Fair Prescriptions: Lisinopril [Zestril] 5 mg PO 1200 #30 tablet Diet: Regular Activity Restrictions: No Restrictions Shower Restrictions: No Driving Restrictions: No Instruction Topics: Lisinopril oral solution, Carvedilol tablets, Heart Failure, Sepsis Additional Instructions or Follow Up instructions: You were admitted to the hospital because of severe abdominal pain. We initially thought you had an infection that affected your kidneys and your liver. You had a very low blood pressure with this. As such we thought you had sepsis. We gave you IV antibiotics, IV fluids. In doing further workup you shared with us that you had injected alcohol a few days prior to admission and we now think that that was the cause of all of your illness. Your blood cultures have been negative, chest x-ray was negative, and CT of the abdomen was negative. As such, he will not be going home on antibiotics. We were not able to get the results of your hepatitis C or HIV testing at the blood bank. Please follow through on that. You also stated that you had suicidal thoughts. As such the [facility] worker came to evaluate you and try to get you into an inpatient unit for both psychiatry reasons as well as abuse of drugs recent. There are no beds available at this time. Since you are voluntary, you will be discharged home. Your grandmother will be picking you up and plans on taking it at sunrise for evaluation tomorrow. They will then see if they can find a facility for you. In the meantime, please do not smoke anything at all. No cannabis, no tobacco, no amphetamines. You have been diagnosed with a new cardiomyopathy which means the muscle of your heart is not pumping very well. There were 3 drugs that you should take for that which is spironolactone, Coreg, and lisinopril. Right now we will start you slow only on lisinopril. You need to see your regular doctor and be referred to a pulp drier firer. After lisinopril Coreg will be the next step. We did not give it to you here because your pulse is too low with that. If you continue to do drugs, it will damage her heart even further. Again, do not do any recreational substance abuse. It may be lethal for you. Please see your primary care provider in follow-up. You still have your hull sorter listed as your doctor. You may need to transfer to an adult doctor. No Smoking: If you smoke, Please STOP! Call for help.
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
== END 2018-10-13 21:10 | disposition home or self-care (01) | DRG 917 ==
LOC: EDUNIT# → ED 05:59 → ICU 11:22
PROVIDERS: ADMIT Internal Medicine; ATTEND Specialist
DX: T51.91XA Toxic effect of unspecified alcohol, accidental (unintentional), initial encounter (principal); I50.21 Acute systolic (congestive) heart failure; R45.851 Suicidal ideations; N17.9 Acute kidney failure, unspecified; I42.7 Cardiomyopathy due to drug and external agent; F11.121 Opioid abuse with intoxication delirium; F19.10 Other psychoactive substance abuse, uncomplicated; T43.621A Poisoning by amphetamines, accidental (unintentional), initial encounter; B33.24 Viral cardiomyopathy; D72.819 Decreased white blood cell count, unspecified; I95.9 Hypotension, unspecified; E86.9 Volume depletion, unspecified; R50.9 Fever, unspecified; R00.1 Bradycardia, unspecified; R10.30 Lower abdominal pain, unspecified; M50.21 Other cervical disc displacement, high cervical region; M48.02 Spinal stenosis, cervical region; N20.0 Calculus of kidney; F32.9 Major depressive disorder, single episode, unspecified; F17.200 Nicotine dependence, unspecified, uncomplicated; Z62.819 Personal history of unspecified abuse in childhood; Z87.442 Personal history of urinary calculi; Z88.0 Allergy status to penicillin; Z91.5 Personal history of self-harm
CPT/HCPCS: 36415; 62270; 71045; 72156; 74177; 80053; 80202; 80306; 80307; 80320; 80329; 81001; 81003; 82330; 82550; 82945; 83605; 83690; 83735; 84100; 84157; 85025; 85610; 86695; 86696; 87040; 87070; 87086; 87150; 87205; 87275; 87276; 89051; 93005; 93306; 96361; 96365; 96367; 96375; 99284; 99285; 99406

== ENCOUNTER 2018-10-15 14:46 | Outpatient (CLI) | payer MEDICAID | END 2018-10-15 14:47 | disposition critical access hospital (66) | LOC: EMS 14:46 | PROVIDERS: ATTEND Surgery | DX: R07.9 Chest pain, unspecified (principal); R06.02 Shortness of breath; R11.2 Nausea with vomiting, unspecified | CPT/HCPCS: A0425; A0427; A0999 ==

== ENCOUNTER 2018-10-15 15:04 | Emergency (ER) | payer MEDICAID ==
--- NOTE | 2018-10-15 15:05 | ED Physician Documentation ---
PD HPI CHEST PAIN - Stated complaint Stated Complaint: CP - History obtained from History obtained from: Patient - History of Present Illness Timing - onset: Today Timing - onset during: Exertion (he ate at [employer] and then smoked some cannabis, was walking up a moderate hill and felt short of breath and chest tightness. Was just in hospital for dyspnea and Dx with cardiomyopathy and EF 30% due to drug use. Started on Lisinopril only due to resting heart rate around 60 (so no beta jose at this time).) Timing - duration: Minutes Timing - details: Gradual onset, Now resolved Quality: Pressure, Tightness, Dull, Pain Location: Substernal Associated symptoms: Shortness of air, Feeling faint / dizzy, General Weakness. No: Diaphoresis, Nausea, Palpitations Similar symptoms before: Diagnosis (cardiomyopathy Dx in recent admission) Recently seen: Emergency Dept, Admitted Review of Systems Constitutional: denies: Fever Nose: denies: Rhinorrhea / runny nose, Congestion Throat: denies: Sore throat Cardiac: reports: Chest pain / pressure. denies: Palpitations, Pedal edema, Calf pain Respiratory: reports: Dyspnea. denies: Cough, Wheezing GI: denies: Abdominal Pain, Nausea, Vomiting, Diarrhea Neurologic: denies: Focal weakness, Near syncope, Syncope, Altered mental status PD PAST MEDICAL HISTORY - Past Medical History Cardiovascular: Other - Present Medications Home Medications: Ambulatory Orders Medication Instructions Recorded Confirmed Lisinopril [Zestril] 5 mg PO 1200 #30 tablet 10/13/18 Naproxen 375 mg PO BID #20 tablet 10/15/18 - Allergies Allergies/Adverse Reactions: Allergies Allergy/AdvReac Type Severity Reaction Status Date / Time Penicillins Allergy Mild Rash Verified 10/15/18 15:15 - Social History Does the pt smoke?: Yes Does the pt have substance abuse?: Yes Substance Use and Type: Marijuana - Family History Family history: reports: CAD PD ED PE NORMAL - Vitals Vital signs reviewed: Yes - General General: Alert and oriented X 3, Well developed/nourished, Other (somewhat anxious) - HEENT HEENT: Pharynx benign - Neck Neck: Supple, no meningeal sign, No adenopathy, No JVD - Cardiac Cardiac: RRR (somewhat slow rate), No murmur - Respiratory Respiratory: No respiratory distress, Clear bilaterally - Abdomen Abdomen: Soft, Non tender - Derm Derm: Normal color, Warm and dry - Extremities Extremities: No deformity, No tenderness to palpate, No edema, No calf tenderness / cord - Neuro Neuro: Alert and oriented X 3, No motor deficit, Normal speech Results - Vitals Vitals: Oxygen O2 Source Room air - EKG (time done) 15:12 Rate: Rate (enter#) (51) Rhythm: Sinus bradycardia [place]: Normal Intervals: Normal DE QRS: LVH Ischemia: Normal ST segments. No: ST elevation c/w ischemia, ST depression, T wave inversion - Labs Labs: Laboratory Tests 10/15/18 10/15/18 10/15/18 15:57 15:57 15:57 WBC 14.1 H RBC 4.90 Hgb 14.9 Hct 44.4 MCV 90.5 MCH 30.4 MCHC 33.6 RDW 13.4 Plt Count 316 MPV 7.3 L Neut # (Auto) Not Reportable Lymph # (Auto) Not Reportable Maries # (Auto) Not Reportable Eos # (Auto) Not Reportable Baso # (Auto) Not Reportable Absolute Nucleated RBC Not Reportable Total Counted 100 Band Neuts % (Manual) 4 Abnorm Lymph % (Manual) 0 Myelocytes % 6 H Nucleated RBC % Not Reportable Neutrophils # (Manual) 7.8 H Lymphocytes # (Manual) 4.9 H Monocytes # (Manual) 0.4 Eosinophils # (Manual) 0.0 Basophils # (Manual) 0.1 Differential Comment MANUAL DIFFERENTIAL Manual Slide Review Indicated WBC Morphology 1+ TOXIC GRANULATION Platelet Estimate NORMAL (130-450,000) Platelet Morphology NORMAL APPEARANCE RBC Morph Micro Appear 1+ POLYCHROMASIA Sodium 140 Potassium 3.7 Chloride 104 Carbon Dioxide 31 Anion Gap 5.0 L BUN 13 Creatinine 0.8 Estimated GFR (MDRD) 121 Glucose 126 H Calcium 9.0 Magnesium 2.0 Total Bilirubin 0.3 AST 128 H ALT 155 H Alkaline Phosphatase 93 Troponin I < 0.04 B-Natriuretic Peptide Total Protein 7.4 Albumin 4.1 Globulin 3.3 Albumin/Globulin Ratio 1.2 Lipase 37 10/15/18 15:57 WBC RBC Hgb Hct MCV MCH MCHC RDW Plt Count MPV Neut # (Auto) Lymph # (Auto) Maries # (Auto) Eos # (Auto) Baso # (Auto) Absolute Nucleated RBC Total Counted Band Neuts % (Manual) Abnorm Lymph % (Manual) Myelocytes % Nucleated RBC % Neutrophils # (Manual) Lymphocytes # (Manual) Monocytes # (Manual) Eosinophils # (Manual) Basophils # (Manual) Differential Comment Manual Slide Review WBC Morphology Platelet Estimate Platelet Morphology RBC Morph Micro Appear Sodium Potassium Chloride Carbon Dioxide Anion Gap BUN Creatinine Estimated GFR (MDRD) Glucose Calcium Magnesium Total Bilirubin AST ALT Alkaline Phosphatase Troponin I B-Natriuretic Peptide 53 Total Protein Albumin Globulin Albumin/Globulin Ratio Lipase - Rads (name of study) chest xray Radiology: Prelim report reviewed, EMP read contemporaneously (no acute process; similar to prior) PD MEDICAL DECISION MAKING - ED course Complexity details: re-evaluated patient (asks for help with getting to detox. Given the info sheet from [employer] on intranet and he can call intake place for them. ), considered differential (recent Dx of cardiomyopathy with EF 30% and was in hospital for few days. Presume some dyspnea from the CHF and also some deconditioning from lack of activity. ), d/w patient Departure - Departure Disposition: 01 Home, Self Care Clinical Impression: Cardiomyopathy Qualifiers: Cardiomyopathy type: due to drug Qualified Code(s): I42.7 - Cardiomyopathy due to drug and external agent Chest pain Qualifiers: Chest pain type: precordial pain Qualified Code(s): R07.2 - Precordial pain Dyspnea Qualifiers: Dyspnea type: dyspnea on exertion Qualified Code(s): R06.09 - Other forms of dyspnea Condition: Stable Record reviewed to determine appropriate education?: Yes Instructions: ED Chest Pain Costochondritis Prescriptions: Naproxen 375 mg PO BID #20 tablet Comments: Continue the lisinopril daily and it does not depend on your heart rate. Add naproxen twice daily for presumed inflammation causing some of the pain you had. Limit exertional activity based on comfort. Follow-up with the clinic at their soonest available appointment. Refer to the information sheet about the drug rehab sites that are available and these are ones that you call yourself to try to make an appointment and did not require you to see your primary care first. Discharge Date/Time: 10/15/18 17:21
[2018-10-15 16:08] LABS: EOSINOPHILS % (AUTO) 1.3 %; HGB - HEMOGLOBIN 14.9 g/dL (14.0-18.0); LYMPHOCYTES % (AUTO) 18.1 %; MEAN CORPUSCULAR HEMOGLOBIN 30.4 pg (27.0-31.0); MEAN CORPUSCULAR HGB CONC 33.6 g/dL (32.0-36.0); MEAN CORPUSCULAR VOLUME 90.5 fL (80.0-94.0); MEAN PLATELET VOLUME 7.3 fL (7.4-11.4); MONOCYTES % (AUTO) 6.7 %; NEUTROPHILS % (AUTO) 72.9 %; PLT - PLATELET COUNT 316 10^3/uL (130-450); RED CELL DISTRIBUTION WIDTH 13.4 % (12.0-15.0); WHITE BLOOD COUNT 14.1 x10^3/uL (4.8-10.8)
[2018-10-15 16:20] LABS: ALBUMIN 4.1 g/dL (3.2-5.5); ALBUMIN/GLOBULIN RATIO 1.2 (1.0-2.2); BILIRUBIN,TOTAL 0.3 mg/dL (0.2-1.0); CREATININE 0.8 mg/dL (0.6-1.2); TOTAL PROTEIN 7.4 g/dL (6.7-8.2)
--- NOTE | 2018-10-15 16:46 | XRAY Report ---
Reason: chest pain Procedure Date: 10/15/2018 Accession Number: [id number] / [id number] Procedure: XR - Chest 1 View X-Ray CPT Code: 62785 FULL RESULT: EXAM: CHEST RADIOGRAPHY EXAM DATE: 10/15/2018 04:32 PM. CLINICAL HISTORY: Chest pain for a week. History of CHF. COMPARISON: CHEST 1 VIEW 10/10/2018 7:01 AM. TECHNIQUE: 1 view. FINDINGS: Lungs/Pleura: No focal opacities evident. No pleural effusion. No pneumothorax. Mediastinum: Within exam limitations, the cardiomediastinal contour is normal. Other: No bony abnormalities. IMPRESSION: Normal single view chest. RADIA
[2018-10-15 16:59] LABS: ABNORMAL LYMPHS % (MANUAL) 0 %
[2018-10-15 17:01] LABS: BAND NEUTROPHILS % (MANUAL) 4 %; BASOPHILS # (MANUAL) 0.1 10^3/uL (0-0.1); BASOPHILS % (MANUAL) 1 %; LYMPHOCYTES # (MANUAL) 4.9 10^3/uL (1.5-3.5); LYMPHOCYTES % (MANUAL) 35 %; MONOCYTES # (MANUAL) 0.4 10^3/uL (0.0-1.0); MYELOCYTES % (MANUAL) 6 %; NEUTROPHILS # (MANUAL) 7.8 10^3/uL (1.5-6.6); NEUTROPHILS % (MANUAL) 51 %; PLATELET ESTIMATE, MANUAL NORMAL (130-450,000) (NORMAL); PLATELET MORPHOLOGY NORMAL APPEARANCE (NORMAL); RBC MORPHOLOGY (MULTIPLE) 1+ POLYCHROMASIA (NORMAL)
[2018-10-15 17:02] LABS: DIFFERENTIAL COMMENT MANUAL DIFFERENTIAL
[2018-10-15] MEDS ORDERED: KETOROLAC 15 MG/ML VIAL IVP STA (17:06)
[2018-10-15 17:20] VITALS: BP 113/76
== END 2018-10-15 17:21 | disposition home or self-care (01) ==
LOC: EDUNIT# → ED 15:04
DX: I42.7 Cardiomyopathy due to drug and external agent (principal); R53.1 Weakness
CPT/HCPCS: 36415; 71045; 80053; 83690; 83735; 83880; 84484; 85025; 93005; 96374; 99283

== ENCOUNTER 2018-10-19 09:30 | Outpatient (CLI) | payer MEDICAID ==
[2018-10-19 13:27] LABS: BASOPHILS % (AUTO) 0.5 %; EOSINOPHILS % (AUTO) 1.4 %; HGB - HEMOGLOBIN 15.2 g/dL (14.0-18.0); LYMPHOCYTES % (AUTO) 25.8 %; MEAN CORPUSCULAR HEMOGLOBIN 30.7 pg (27.0-31.0); MEAN CORPUSCULAR HGB CONC 33.4 g/dL (32.0-36.0); MEAN CORPUSCULAR VOLUME 91.8 fL (80.0-94.0); MEAN PLATELET VOLUME 7.9 fL (7.4-11.4); MONOCYTES % (AUTO) 6.2 %; NEUTROPHILS % (AUTO) 66.1 %; PLT - PLATELET COUNT 420 10^3/uL (130-450); RED BLOOD COUNT 4.96 10^6/uL (4.70-6.10); RED CELL DISTRIBUTION WIDTH 13.6 % (12.0-15.0); WHITE BLOOD COUNT 10.1 x10^3/uL (4.8-10.8)
[2018-10-19 13:46] LABS: ALBUMIN 4.2 g/dL (3.2-5.5); ALBUMIN/GLOBULIN RATIO 1.2 (1.0-2.2); BILIRUBIN,TOTAL 0.5 mg/dL (0.2-1.0); CALCIUM 9.4 mg/dL (8.5-10.3); CREATININE 0.9 mg/dL (0.6-1.2); TOTAL PROTEIN 7.8 g/dL (6.7-8.2)
[2018-10-19 15:20] LABS: ABNORMAL LYMPHS % (MANUAL) 0 %; BAND NEUTROPHILS % (MANUAL) 0 %
[2018-10-19 15:24] LABS: BASOPHILS # (MANUAL) 0.1 10^3/uL (0-0.1); BASOPHILS % (MANUAL) 1 %; EOSINOPHILS # (MANUAL) 0.1 10^3/uL (0-0.7); LYMPHOCYTES # (MANUAL) 2.5 10^3/uL (1.5-3.5); LYMPHOCYTES % (MANUAL) 25 %; METAMYELOCYTES % (MANUAL) 2 %; MONOCYTES # (MANUAL) 1.1 10^3/uL (0.0-1.0); MYELOCYTES % (MANUAL) 1 %; NEUTROPHILS % (MANUAL) 59 %; RBC MORPHOLOGY (MULTIPLE) NORMAL APPEARANCE (NORMAL)
[2018-10-19 15:25] LABS: DIFFERENTIAL COMMENT MANUAL DIFFERENTIAL; PLATELET ESTIMATE, MANUAL NORMAL (130-450,000) (NORMAL); PLATELET MORPHOLOGY NORMAL APPEARANCE (NORMAL)
[2018-10-20 12:52] LABS: HIV AG/AB 4TH GEN NON-REACTIVE (NON-REACTIVE)
[2018-10-20 13:57] LABS: HEPATITIS C ANTIBODY NON-REACTIVE (NON-REACTIVE)
== END 2018-10-19 09:31 | disposition home or self-care (01) ==
LOC: LAB.N 09:30
PROVIDERS: ATTEND Physician Assistant Medical
DX: F15.10 Other stimulant abuse, uncomplicated (principal); F11.10 Opioid abuse, uncomplicated; I51.7 Cardiomegaly; I50.9 Heart failure, unspecified
CPT/HCPCS: 36415; 80050; 86803; 87389

== ENCOUNTER 2019-01-28 21:30 | Emergency (ER) | payer MEDICAID ==
[2019-01-28 22:16] LABS: BASOPHILS % (AUTO) 0.7 %; EOSINOPHILS # (AUTO) 0.2 10^3/uL (0.0-0.7); EOSINOPHILS % (AUTO) 3.7 %; HGB - HEMOGLOBIN 13.8 g/dL (14.0-18.0); LYMPHOCYTES # (AUTO) 2.2 10^3/uL (1.5-3.5); LYMPHOCYTES % (AUTO) 35.1 %; MEAN CORPUSCULAR HEMOGLOBIN 30.4 pg (27.0-31.0); MEAN CORPUSCULAR HGB CONC 34.7 g/dL (32.0-36.0); MEAN CORPUSCULAR VOLUME 87.8 fL (80.0-94.0); MEAN PLATELET VOLUME 7.4 fL (7.4-11.4); MONOCYTES # (AUTO) 0.5 10^3/uL (0.0-1.0); MONOCYTES % (AUTO) 7.6 %; NEUTROPHILS # (AUTO) 3.3 10^3/uL (1.5-6.6); NEUTROPHILS % (AUTO) 52.9 %; PLT - PLATELET COUNT 236 10^3/uL (130-450); RED BLOOD COUNT 4.52 10^6/uL (4.70-6.10); RED CELL DISTRIBUTION WIDTH 13.7 % (12.0-15.0); WHITE BLOOD COUNT 6.2 x10^3/uL (4.8-10.8)
[2019-01-28 22:25] LABS: ACETAMINOPHEN < 10 ug/mL (10-30); ALBUMIN 4.3 g/dL (3.2-5.5); ALBUMIN/GLOBULIN RATIO 1.3 (1.0-2.2); ALKALINE PHOSPHATASE 79 IU/L (42-121); ALT ALANINE AMINOTRANSFERASE 25 IU/L (10-60); AST ASPARTATE AMINOTRANSFERASE 31 IU/L (10-42); BILIRUBIN,TOTAL 0.7 mg/dL (0.2-1.0); BUN - BLOOD UREA NITROGEN 16 mg/dL (6-20); CALCIUM 9.2 mg/dL (8.5-10.3); CARBON DIOXIDE - CO2 33 mmol/L (21-32); CHLORIDE 99 mmol/L (101-111); CREATININE 0.8 mg/dL (0.6-1.2); GFR - MDRD 120 (>89); GLUCOSE 104 mg/dL (70-100); LIPASE 24 U/L (22-51); SALICYLATE < 6.0 mg/dL; SODIUM 141 mmol/L (135-145); TOTAL PROTEIN 7.5 g/dL (6.7-8.2)
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
[2019-01-29 01:43] LABS: MUDS CUTOFF CONCENTRATIONS CUTOFF CONC BELOW:
[2019-01-29 01:54] LABS: BILIRUBIN,URINE NEGATIVE (NEGATIVE); GLUCOSE, URINE (UA) NEGATIVE (NEGATIVE); KETONES,URINE (UA) NEGATIVE (NEGATIVE); LEUKOCYTE ESTERASE, URINE NEGATIVE (NEGATIVE); NITRITE,URINE NEGATIVE (NEGATIVE); OCCULT BLOOD,URINE TRACE-INTA (NEGATIVE); PROTEIN,URINE NEGATIVE (NEGATIVE); UROBILINOGEN,URINE 0.2 (NORMAL) E.U./dL (NORMAL)
[2019-01-29 02:01] LABS: AMPHETAMINE SCREEN,URINE POSITIVE (NEGATIVE); BENZODIAZEPINES SCREEN, URINE NEGATIVE (NEGATIVE); CLARITY,URINE CLEAR (CLEAR); COCAINE SCREEN URINE NEGATIVE (NEGATIVE); METHADONE SCREEN, URINE NEGATIVE (NEGATIVE); METHAMPHETAMINES SCREEN, URINE NEGATIVE (NEGATIVE); OPIATE SCREEN, URINE POSITIVE (NEGATIVE); OXYCODONE SCREEN, URINE NEGATIVE (NEGATIVE); PROPOXYPHENE SCREEN, URINE NEGATIVE (NEGATIVE); TRICYCLIC ANTIDEPRESSANT,URINE NEGATIVE (NEGATIVE)
--- NOTE | 2019-01-29 05:05 | TELEPSYCH PHYS NOTE ---
Telepsych Note - CHIEF COMPLAINT/HX OF PRESENT ILLNESS Cheif Complaint and History of Present Illness: Chief Complaint: "Im suicidal." HPI: The patient is a 24 yo male who reported to the ER with depressed mood and SI with a plan of hanging himself. He admits to feeling hopeless and worthless. The patient is abusing heroin and meth. - SI/HI/SELF HARM SI/HI/SELF HARM (CURRENT OR HISTORY OF):: SI SI/HI/Self Harm Text (Current or History of):: 8 prior suicide attempts. - VIOLENCE/LEGAL/COLLATERAL Violence - Legal - Collateral: Violence: none Legal: court pending for theft Collateral: none - PSYCHIATRIC HX/TREATMENT HX Psychiatric: Depression, Anxiety Psychiatric/Treatment Hx Other: No prior inpatient admissions. Current outpatient treatment-none. 8 prior suicide attempts. - DRUG/ALCOHOL HX Substance Use and Type: Meth, Heroin Number: 1 - MEDICAL HX Does the pt have a hx of MRSA?: No Neurological History: None Eyes, Ears, Nose, Throat: None Cardiovascular: Other Respiratory: None Skin: None Endocrine/Autoimmune: None Gastrointestinal: None Urinary: Kidney stones Musculoskeletal: None Blood Disorders: None - HOME MEDICATIONS Home Meds (as last confirmed): none - ALLERGIES Allergies (as last confirmed): Allergies Allergy/AdvReac Type Severity Reaction Status Date / Time Penicillins Allergy Mild Rash Verified 01/28/19 21:41 - FAMILY PSYCH/SUICIDE/SOCIAL HX-MENTAL Family - Suicide - Social Hx and Mental Status Exam: Family Psychiatric History: none Social History: single, lives with roommate Employment: none Education: HS grad, no college Stressors: family, chronic pain History: none Abuse: none Mental Status Examination: Attitude and behavior: cooperative Speech: WNL Affect and mood: sad affect and mood Association and thought processes: linear Thought content: no delusions, + SI, no HI Perception: no hallucinations Sensorium, memory, and orientation: AAOx3 Intellectual functioning: average Insight and judgment: poor - TREATMENT/PHARMACOLOGICAL RECOMMENDATION Treatment - Pharmacological - Therapy Recommendations: The patient is a 24 yo male with depressed mood and SI with plan. He is not safe for discharge. Inpatient care recommended - TIME SPENT & PROVIDER LOCATION Telepsych consultation conducted via videoconferencing: Yes List names and roles of persons who participated in consult: Jose Angel Huynh M.D. [facility] Telepsych Provider Location: [place] Time Telepsych consult began: 07:50 Time Telepsych consult completed: 08:00
--- NOTE | 2019-01-29 16:44 | ED Physician Documentation ---
ED Addendum - Addendum Addendum: The patient remained stable here in the emergency department. He was seen by social work and the concurrence was hospitalization would be of benefit. A hospital was found for him that accepted and appropriate transfer forms are filled out. 01/29/19 16:44
[2019-01-29 17:07] VITALS: BP 109/80
== END 2019-01-29 19:42 ==
LOC: ED 21:30
DX: F33.1 Major depressive disorder, recurrent, moderate (principal); R45.851 Suicidal ideations; F15.10 Other stimulant abuse, uncomplicated; F11.10 Opioid abuse, uncomplicated; R94.31 Abnormal electrocardiogram [ECG] [EKG]; F17.200 Nicotine dependence, unspecified, uncomplicated
CPT/HCPCS: 36415; 80053; 80306; 80307; 80320; 80329; 81003; 83690; 85025; 93005; 99284; Q3014; 81001; 87086

== ENCOUNTER 2019-03-03 04:17 | Outpatient (CLI) | payer MEDICAID | END 2019-03-03 04:18 | disposition critical access hospital (66) | LOC: EMS 04:17 | PROVIDERS: ATTEND Surgery | DX: R52 Pain, unspecified (principal); Z59.0 Homelessness | CPT/HCPCS: A0425; A0429; A0999 ==

== ENCOUNTER 2019-03-03 04:30 | Emergency (ER) | payer MEDICAID ==
--- NOTE | 2019-03-03 04:30 | ED Physician Documentation ---
<Cedric Wakefield - Last Filed: 03/03/19 17:23> History of Present Illness - Stated complaint Stated Complaint: B[facility] PD PAST MEDICAL HISTORY - Present Medications Home Medications: Ambulatory Orders Medication Instructions Recorded Confirmed Lisinopril [Zestril] 5 mg PO 1200 #30 tablet 10/13/18 Naproxen 375 mg PO BID #20 tablet 10/15/18 - Allergies Allergies/Adverse Reactions: Allergies Allergy/AdvReac Type Severity Reaction Status Date / Time Penicillins Allergy Mild Rash Verified 03/03/19 04:35 Procedures - IVC sono (time) 1720 Bedside IVC sono: IVC measures (cm) (1.19), IVC collapsed c insp (cm) (complete), Dehydration (est 1 liter deficit after one liter in.) PD MEDICAL DECISION MAKING - ED course ED course: Arrangements were made for admission into the hospital and this was rejected by the hospitalist service and the patient remained in the emergency department. He was administered potassium phosphate intravenously as well as 1 L of saline. Repeat lactate and repeat potassium and phosphate were normal following this infusion. The patient remained tachycardic and his inferior vena cava was interrogated with a bedside ultrasound and he was found to be dehydrated requiring at least another liter of saline. Departure - Departure Disposition: 01 Home, Self Care Clinical Impression: Polydrug abuse, continuous, Hypokalemia, Hypophosphatemia Condition: Fair Instructions: ED Drug Abuse General Follow-Up: [facility] [Provider Group] Comments: Stop using drugs, they are killing you. Discharge Date/Time: 03/03/19 18:33 <Tae Velazquez - Last Filed: 03/03/19 19:10> History of Present Illness - History obtained from History obtained from: Patient, EMS - History of Present Illness Timing: Today Pain level now: 10 Improved by: nothing Worsened by: no exacerbating factors - Additonal information Additional information: BIBA. Patient admits to using methamphetamines (injection) within the past 1-2 hours. He then walked to a friend's house because he felt unwell and friend called 911. Patient arrives hyperkinetic, agitated, moaning. He converses and gives many appropriate answers, although he cannot elaborate on his symptoms except for vague descriptions of not feeling well/right. Per patient, last heroin use was 2-3 days ago Review of Systems Constitutional: reports: Myalgias Cardiac: reports: Reviewed and negative Respiratory: reports: Reviewed and negative GI: reports: Reviewed and negative PD PAST MEDICAL HISTORY - Past Medical History Past Medical History: Yes Cardiovascular: Other (30% EF on echo (September 2018)) - Past Surgical History Past Surgical History: No - Social History Does the pt have substance abuse?: Yes Substance Use and Type: Meth, Heroin PD ED PE NORMAL - Vitals Vital signs reviewed: Yes - General General: Alert and oriented X 3, Well developed/nourished, Other (anxious, hyperkinetic, pressured speech, frequently interrupts) - HEENT HEENT: PERRL, EOMI, Other (dry mucous membranes) - Neck Neck: No bony TTP - Cardiac Cardiac: No murmur - Respiratory Respiratory: No respiratory distress, Clear bilaterally - Abdomen Abdomen: Soft, Non tender, Non distended - Derm Derm: Normal color, Warm and dry - Extremities Extremities: No edema PD ED PE EXPANDED - Cardiac Cardiac: Regular Rate, Tachy - Psych Psych: Anxious, Agitated, Pressured speech. No: Combative Results - Vitals Vitals: Vital Signs - 24 hr 03/03/19 03/03/19 03/03/19 04:30 04:58 05:06 Temperature 37.8 C H Heart Rate 124 H 134 H Respiratory 32 H 33 H Rate Blood Pressure 130/95 H 125/86 H O2 Saturation 100 100 92 03/03/19 03/03/19 03/03/19 05:23 06:15 06:45 Temperature Heart Rate 118 H 113 H 105 H Respiratory 25 H 20 22 Rate Blood Pressure 143/76 H 132/69 H 132/77 H O2 Saturation 100 99 97 03/03/19 03/03/19 03/03/19 08:16 10:45 12:08 Temperature 37.4 C 37.1 C 37.3 C Heart Rate 88 103 H 75 Respiratory 17 14 13 Rate Blood Pressure 105/64 118/67 107/76 O2 Saturation 100 95 97 03/03/19 03/03/19 03/03/19 14:20 15:52 17:00 Temperature 36.2 C L 37.1 C 36.2 C L Heart Rate 74 69 62 Respiratory 10 L 14 18 Rate Blood Pressure 125/88 H 126/87 H 129/95 H O2 Saturation 98 96 99 Oxygen O2 Source Room air Oxygen Flow Rate 2 - Labs Labs: Laboratory Tests 03/03/19 03/03/19 03/03/19 04:32 04:52 04:52 WBC 7.8 RBC 4.65 L Hgb 14.0 Hct 41.9 L MCV 90.0 MCH 30.0 MCHC 33.4 RDW 14.9 Plt Count 204 MPV 7.4 Neut # (Auto) 6.6 Lymph # (Auto) 1.0 L [place] # (Auto) 0.1 Eos # (Auto) 0.0 Baso # (Auto) 0.0 Absolute Nucleated RBC 0.01 Nucleated RBC % 0.1 PT 12.6 INR 1.1 APTT 23.5 L Sodium Potassium Chloride Carbon Dioxide Anion Gap BUN Creatinine Estimated GFR (MDRD) Glucose Lactic Acid 3.0 H* Calcium Phosphorus Magnesium Total Bilirubin AST ALT Alkaline Phosphatase Total Creatine Kinase CK-MB (CK-2) Troponin I B-Natriuretic Peptide Total Protein Albumin Globulin Albumin/Globulin Ratio Lipase Urine Color Urine Clarity Urine pH Ur Specific [place] Urine Protein Urine Glucose (UA) Urine Ketones Urine Occult Blood Urine Nitrite Urine Bilirubin Urine Urobilinogen Ur Leukocyte Esterase Ur Microscopic Review Urine Culture Comments Salicylates Urine Opiates Screen Ur Oxycodone Screen Urine Methadone Screen Ur Propoxyphene Screen Acetaminophen Ur Barbiturates Screen Ur Tricyclics Screen Ur Phencyclidine Scrn Ur Amphetamine Screen U Methamphetamines Scrn U Benzodiazepines Scrn Urine Cocaine Screen U Cannabinoids Screen Ethyl Alcohol 03/03/19 03/03/19 03/03/19 05:00 05:00 05:00 WBC RBC Hgb Hct MCV MCH MCHC RDW Plt Count MPV Neut # (Auto) Lymph # (Auto) [place] # (Auto) Eos # (Auto) Baso # (Auto) Absolute Nucleated RBC Nucleated RBC % PT INR APTT Sodium 140 Potassium 2.8 L Chloride 104 Carbon Dioxide 22 Anion Gap 14.0 H BUN 17 Creatinine 1.0 Estimated GFR (MDRD) 93 Glucose 124 H Lactic Acid Calcium 9.2 Phosphorus < 1.0 L* Magnesium 1.8 Total Bilirubin 1.3 H AST 29 ALT 20 Alkaline Phosphatase 77 Total Creatine Kinase 220 CK-MB (CK-2) 5.8 Troponin I < 0.04 B-Natriuretic Peptide 29 Total Protein 7.2 Albumin 4.3 Globulin 2.9 Albumin/Globulin Ratio 1.5 Lipase 25 Urine Color Urine Clarity Urine pH Ur Specific [place] Urine Protein Urine Glucose (UA) Urine Ketones Urine Occult Blood Urine Nitrite Urine Bilirubin Urine Urobilinogen Ur Leukocyte Esterase Ur Microscopic Review Urine Culture Comments Salicylates < 6.0 Urine Opiates Screen Ur Oxycodone Screen Urine Methadone Screen Ur Propoxyphene Screen Acetaminophen < 10 L Ur Barbiturates Screen Ur Tricyclics Screen Ur Phencyclidine Scrn Ur Amphetamine Screen U Methamphetamines Scrn U Benzodiazepines Scrn Urine Cocaine Screen U Cannabinoids Screen Ethyl Alcohol < 5.0 03/03/19 03/03/19 03/03/19 08:57 09:25 16:32 WBC RBC Hgb Hct MCV MCH MCHC RDW Plt Count MPV Neut # (Auto) Lymph # (Auto) [place] # (Auto) Eos # (Auto) Baso # (Auto) Absolute Nucleated RBC Nucleated RBC % PT INR APTT Sodium 140 Potassium 4.0 Chloride 107 Carbon Dioxide 25 Anion Gap 8.0 BUN 11 Creatinine 0.9 Estimated GFR (MDRD) 105 Glucose 98 Lactic Acid 0.7 Calcium 8.8 Phosphorus 3.9 Magnesium Total Bilirubin AST ALT Alkaline Phosphatase Total Creatine Kinase CK-MB (CK-2) Troponin I B-Natriuretic Peptide Total Protein Albumin Globulin Albumin/Globulin Ratio Lipase Urine Color YELLOW Urine Clarity CLEAR Urine pH 7.0 Ur Specific [place] 1.010 Urine Protein NEGATIVE Urine Glucose (UA) NEGATIVE Urine Ketones 15 H Urine Occult Blood TRACE-INTA Urine Nitrite NEGATIVE Urine Bilirubin NEGATIVE Urine Urobilinogen 0.2 (NORMAL) Ur Leukocyte Esterase NEGATIVE Ur Microscopic Review NOT INDICATED Urine Culture Comments NOT INDICATED Salicylates Urine Opiates Screen POSITIVE H Ur Oxycodone Screen NEGATIVE Urine Methadone Screen NEGATIVE Ur Propoxyphene Screen NEGATIVE Acetaminophen Ur Barbiturates Screen NEGATIVE Ur Tricyclics Screen NEGATIVE Ur Phencyclidine Scrn NEGATIVE Ur Amphetamine Screen POSITIVE H U Methamphetamines Scrn POSITIVE H U Benzodiazepines Scrn POSITIVE H Urine Cocaine Screen NEGATIVE U Cannabinoids Screen POSITIVE H Ethyl Alcohol - Rads (name of study) chest xray Radiology: Prelim report reviewed, See rad report PD MEDICAL DECISION MAKING - ED course Complexity details: reviewed old records, reviewed results, re-evaluated p atient, considered differential, d/w patient ED course: Given 2mg IM ativan on arrival for sedation and to facilitate IV insertion (he is markedly hyperkinetic on arrival). This resulted in reduction in movement and he is mildly improved with his pressured speech. IV established and 2 mg IV ativan given. He subsequently became sedated, arousable only to repeated tactile stimulus. Blood tests notable for mildly elevated lactate, moderate hypokalemia and severe hypophosphatemia.
[2019-03-03] MEDS ORDERED: LORazepam 2 MG/ML VIAL IM STA (04:35)
[2019-03-03] MEDS ORDERED: LORazepam 2 MG/ML VIAL IVP STA (04:50)
[2019-03-03] MEDS ORDERED: SODIUM CHLORIDE 0.9% 500 ML IV STA (04:51)
[2019-03-03 05:03] LABS: BASOPHILS % (AUTO) 0.3 %; EOSINOPHILS % (AUTO) 0.3 %; LYMPHOCYTES % (AUTO) 13.5 %; MEAN CORPUSCULAR HGB CONC 33.4 g/dL (32.0-36.0); MEAN PLATELET VOLUME 7.4 fL (7.4-11.4); MONOCYTES # (AUTO) 0.1 10^3/uL (0.0-1.0); MONOCYTES % (AUTO) 0.7 %; NEUTROPHILS # (AUTO) 6.6 10^3/uL (1.5-6.6); NEUTROPHILS % (AUTO) 85.2 %; PLT - PLATELET COUNT 204 10^3/uL (130-450); RED BLOOD COUNT 4.65 10^6/uL (4.70-6.10); RED CELL DISTRIBUTION WIDTH 14.9 % (12.0-15.0); WHITE BLOOD COUNT 7.8 x10^3/uL (4.8-10.8)
[2019-03-03 05:11] LABS: INR 1.1 (0.8-1.2); PT - PROTHROMBIN TIME 12.6 secs (9.9-12.6)
[2019-03-03 05:18] LABS: PARTIAL THROMBOPLASTIN TIME 23.5 secs (24.9-33.3)
--- NOTE | 2019-03-03 05:19 | XRAY Report ---
Reason: chest pain Procedure Date: 03/03/2019 Accession Number: [id number] / [id number] Procedure: XR - Chest 1 View X-Ray CPT Code: 16312 FULL RESULT: EXAM: CHEST RADIOGRAPHY EXAM DATE: 03/03/2019 05:03 AM. CLINICAL HISTORY: Chest pain. COMPARISON: CHEST 1 VIEW 10/15/2018 4:18 PM. TECHNIQUE: 1 view. FINDINGS: Lungs/Pleura: No focal opacities evident. No pleural effusion. No pneumothorax. Mediastinum: Within exam limitations, the cardiomediastinal contour is normal. Other: None. IMPRESSION: Normal single view chest. [facility]
[2019-03-03 05:25] LABS: ACETAMINOPHEN < 10 ug/mL (10-30); ALBUMIN 4.3 g/dL (3.2-5.5); ALBUMIN/GLOBULIN RATIO 1.5 (1.0-2.2); ALKALINE PHOSPHATASE 77 IU/L (42-121); ALT ALANINE AMINOTRANSFERASE 20 IU/L (10-60); AST ASPARTATE AMINOTRANSFERASE 29 IU/L (10-42); BILIRUBIN,TOTAL 1.3 mg/dL (0.2-1.0); BUN - BLOOD UREA NITROGEN 17 mg/dL (6-20); CALCIUM 9.2 mg/dL (8.5-10.3); CARBON DIOXIDE - CO2 22 mmol/L (21-32); CHLORIDE 104 mmol/L (101-111); CK- CREATINE KINASE 220 IU/L (22-269); GFR - MDRD 93 (>89); GLUCOSE 124 mg/dL (70-100); LIPASE 25 U/L (22-51); MAGNESIUM 1.8 mg/dL (1.7-2.8); PHOSPHORUS < 1.0 mg/dL (2.5-4.6); SALICYLATE < 6.0 mg/dL; SODIUM 140 mmol/L (135-145); TOTAL PROTEIN 7.2 g/dL (6.7-8.2)
[2019-03-03 05:29] LABS: TROPONIN I < 0.04 ng/mL (<0.49)
[2019-03-03 05:32] LABS: CREATINE KINASE MB 5.8 ng/mL (0.6-6.3)
[2019-03-03] MEDS ORDERED: NEUTRA-PHOS 250 MG TABLET PO STA (05:42)
[2019-03-03] MEDS ORDERED: POTASSIUM CHLORIDE INJ 40 MEQ in SODIUM CHLORIDE 0.9% 480 ML IV ONE (08:33)
[2019-03-03] MEDS ORDERED: POTASSIUM PHOSPHATE 21 MMOL in SODIUM CHLORIDE 0.9% 250 ML IV STA (08:44)
[2019-03-03 09:34] LABS: MUDS CUTOFF CONCENTRATIONS CUTOFF CONC BELOW:
[2019-03-03 09:37] LABS: BILIRUBIN,URINE NEGATIVE (NEGATIVE); GLUCOSE, URINE (UA) NEGATIVE (NEGATIVE); KETONES,URINE (UA) 15 mg/dL (NEGATIVE); LEUKOCYTE ESTERASE, URINE NEGATIVE (NEGATIVE); NITRITE,URINE NEGATIVE (NEGATIVE); OCCULT BLOOD,URINE TRACE-INTA (NEGATIVE); PROTEIN,URINE NEGATIVE (NEGATIVE); UROBILINOGEN,URINE 0.2 (NORMAL) E.U./dL (NORMAL)
[2019-03-03 09:38] LABS: CLARITY,URINE CLEAR (CLEAR)
[2019-03-03 09:49] LABS: AMPHETAMINE SCREEN,URINE POSITIVE (NEGATIVE); BENZODIAZEPINES SCREEN, URINE POSITIVE (NEGATIVE); COCAINE SCREEN URINE NEGATIVE (NEGATIVE); METHADONE SCREEN, URINE NEGATIVE (NEGATIVE); METHAMPHETAMINES SCREEN, URINE POSITIVE (NEGATIVE); OPIATE SCREEN, URINE POSITIVE (NEGATIVE); OXYCODONE SCREEN, URINE NEGATIVE (NEGATIVE); PROPOXYPHENE SCREEN, URINE NEGATIVE (NEGATIVE); TRICYCLIC ANTIDEPRESSANT,URINE NEGATIVE (NEGATIVE)
[2019-03-03] MEDS ORDERED: POTASSIUM PHOSPHATE 21 MMOL in SODIUM CHLORIDE 0.9% 250 ML IV ONE (09:51)
[2019-03-03] MEDS ORDERED: SODIUM CHLORIDE 0.9% 500 ML IV ONE (10:01)
[2019-03-03 16:48] LABS: CALCIUM 8.8 mg/dL (8.5-10.3); CREATININE 0.9 mg/dL (0.6-1.2); PHOSPHORUS 3.9 mg/dL (2.5-4.6)
[2019-03-03 17:01] VITALS: BP 129/95
[2019-03-03] MEDS ORDERED: SODIUM CHLORIDE 0.9% 1,000 ML IV ONE (17:23)
[2019-03-03] MEDS ORDERED: ONDANSETRON 4 MG/2 ML VIAL IVP STA (17:53)
[2019-03-03] MEDS ORDERED: KETOROLAC 30 MG/ML VIAL IVP STA (18:02)
--- NOTE | 2019-03-03 18:58 | ED Physician Documentation ---
ED Addendum - Addendum Addendum: 03/03/19 18:[address] Wakefield. Briefly this is a young man who used a lot of drugs last night and arrived with significant altered mental status and abnormal electrolytes. His electrolytes were fixed and he was hydrated. His tachycardia resolved. On my evaluation at 6 PM he had normal mental status. He was able to ambulate around the department without issue. He ate and drank here. He was discharged home in stable condition.
== END 2019-03-03 18:33 | disposition home or self-care (01) ==
LOC: EDUNIT# → ED 04:30
DX: F19.10 Other psychoactive substance abuse, uncomplicated (principal); F15.10 Other stimulant abuse, uncomplicated; F11.10 Opioid abuse, uncomplicated; E86.0 Dehydration; E87.6 Hypokalemia; E83.39 Other disorders of phosphorus metabolism; R79.89 Other specified abnormal findings of blood chemistry; F90.9 Attention-deficit hyperactivity disorder, unspecified type; F41.9 Anxiety disorder, unspecified
CPT/HCPCS: 36415; 71045; 80048; 80053; 80306; 80307; 80320; 80329; 81003; 82550; 82553; 83605; 83690; 83735; 83880; 84100; 84484; 85025; 85610; 85730; 96361; 96365; 96366; 96372; 96375; 99285; A9270; J2060; 81001; 87086

== ENCOUNTER 2019-06-28 09:04 | Outpatient (CLI) | payer MEDICAID | END 2019-06-28 09:05 | disposition critical access hospital (66) | LOC: EMS 09:04 | PROVIDERS: ATTEND Surgery | DX: R07.9 Chest pain, unspecified (principal); R40.0 Somnolence | CPT/HCPCS: A0425; A0427; A0999 ==

== ENCOUNTER 2019-06-28 09:33 | Emergency (ER) | payer MEDICAID ==
[2019-06-28 10:30] LABS: BASOPHILS # (AUTO) 0.1 10^3/uL (0.0-0.1); BASOPHILS % (AUTO) 0.4 %; EOSINOPHILS % (AUTO) 0.1 %; RED CELL DISTRIBUTION WIDTH 13.2 % (12.0-15.0)
[2019-06-28] MEDS ORDERED: ONDANSETRON 4 MG/2 ML VIAL IVP STA ×2 (10:30→13:06)
[2019-06-28] MEDS ORDERED: KETOROLAC 30 MG/ML VIAL IVP STA (10:30)
[2019-06-28 10:33] LABS: LYMPHOCYTES # (AUTO) 1.6 10^3/uL (1.5-3.5); MEAN CORPUSCULAR HEMOGLOBIN 30.5 pg (27.0-31.0); MEAN CORPUSCULAR VOLUME 89.9 fL (80.0-94.0); MEAN PLATELET VOLUME 9.5 fL (7.4-11.4); MONOCYTES # (AUTO) 0.5 10^3/uL (0.0-1.0); MONOCYTES % (AUTO) 3.2 %; NEUTROPHILS % (AUTO) 85.6 %; PLT - PLATELET COUNT 291 10^3/uL (130-450); RED BLOOD COUNT 5.24 10^6/uL (4.70-6.10); WHITE BLOOD COUNT 16.4 x10^3/uL (4.8-10.8)
--- NOTE | 2019-06-28 10:35 | ED Physician Documentation ---
PD HPI CHEST PAIN - Stated complaint Stated Complaint: CP - Chief complaint Chief Complaint: Cardiac - History obtained from History obtained from: Patient - History of Present Illness Timing - onset: Today Timing - onset during: Rest Timing - duration: Hours Timing - details: Gradual onset, Still present Quality: Aching, Throbbing Location: Substernal Radiation: Back Improved by: Rest Worsened by: Inspiration, Movement, Palpation Associated symptoms: Nausea, Vomiting, Feeling faint / dizzy. No: Shortness of air, Diaphoresis Similar symptoms before: Diagnosis (CHF with cardiomegaly) Recently seen: Not recently seen - Additional information Additional information: 24-year-old male with a history of substance abuse with heroin and methamphetamine states that he lasted heroin 3 days ago and did methamphetamine last night. He awoke today with pressure in his chest nausea vomiting and overall pain. He is concerned about the possibility of congestive heart failure. Review of Systems Constitutional: denies: Fever Eyes: denies: Decreased vision Ears: denies: Ear pain Nose: denies: Rhinorrhea / runny nose, Congestion Throat: denies: Sore throat Cardiac: reports: Chest pain / pressure. denies: Palpitations, Pedal edema, Calf pain Respiratory: reports: Dyspnea. denies: Cough GI: reports: Abdominal Pain, Nausea, Vomiting : denies: Dysuria, Frequency PD PAST MEDICAL HISTORY - Past Medical History Cardiovascular: Other Respiratory: None Neuro: None Endocrine/Autoimmune: None GI: None : Kidney stones HEENT: None Psych: Depression, Anxiety Musculoskeletal: None Derm: None Other Past Medical History: heart failure r/t iv drug use - Past Surgical History Past Surgical History: No - Present Medications Home Medications: Ambulatory Orders Medication Instructions Recorded Confirmed RX: Lisinopril [Zestril] 5 mg PO 1200 #30 tablet 10/13/18 RX: Naproxen 375 mg PO BID #20 tablet 10/15/18 - Allergies Allergies/Adverse Reactions: Allergies Allergy/AdvReac Type Severity Reaction Status Date / Time Penicillins Allergy Mild Rash Verified 06/28/19 09:41 - Social History Does the pt smoke?: Yes Smoking Status: Current every day smoker Does the pt drink ETOH?: Yes Does the pt have substance abuse?: Yes Substance Use and Type: Heroin - Immunizations Immunizations are current?: Yes - POLST Patient has POLST: No PD ED PE NORMAL - Vitals Vital signs reviewed: Yes (tachy, tachypneic and hypertensive ) - General General: Alert and oriented X 3, No acute distress, Well developed/nourished - HEENT HEENT: Atraumatic, PERRL, EOMI, Ears normal, Other (dry mucous membranes ) - Neck Neck: Supple, no meningeal sign, No bony TTP - Cardiac Cardiac: RRR, No murmur, Other (loud second sound ) - Respiratory Respiratory: No respiratory distress, Clear bilaterally - Abdomen Abdomen: Soft, Non tender - Back Back: No CVA TTP, No spinal TTP - Derm Derm: Normal color, Warm and dry, No rash - Neuro Neuro: Alert and oriented X 3, plant specialist 2-12 intact, No motor deficit, No sensory deficit, Normal speech Eye Opening: Spontaneous Motor: Obeys Commands Verbal: Oriented GCS Score: 15 - Psych Psych: Normal mood, Other (affect is blunted. ) Results - Vitals Vitals: Vital Signs - 24 hr 06/28/19 06/28/19 06/28/19 09:35 09:46 11:06 Temperature 36.7 C Heart Rate 116 H 56 L 56 L Respiratory 30 H 26 H 20 Rate Blood Pressure 133/100 H 157/92 H 151/93 H O2 Saturation 100 100 100 06/28/19 06/28/19 06/28/19 13:00 15:00 17:00 Temperature Heart Rate 75 52 L 61 Respiratory 18 17 15 Rate Blood Pressure 143/110 H 141/74 H 128/76 O2 Saturation 100 100 100 Oxygen O2 Source Room air - EKG (time done) 0943 Rate: Rate (enter#) (57) Rhythm: NSR Intervals: Other (short [place]) QRS: LVH Compare to prior EKG: Unchanged from prior EKG (SPT 01-29-19 no sig change) Computer interpretation: Agree with computer - Labs Labs: Laboratory Tests 06/28/19 06/28/19 06/28/19 10:22 10:22 10:22 WBC 16.4 H RBC 5.24 Hgb 16.0 Hct 47.1 MCV 89.9 MCH 30.5 MCHC 34.0 RDW 13.2 Plt Count 291 MPV 9.5 Neut # (Auto) 14.0 H Lymph # (Auto) 1.6 [place] # (Auto) 0.5 Eos # (Auto) 0.0 Baso # (Auto) 0.1 Absolute Nucleated RBC 0.00 Nucleated RBC % 0.0 Sodium 142 Potassium 3.8 Chloride 104 Carbon Dioxide 23 Anion Gap 15.0 H BUN 15 Creatinine 1.1 Estimated GFR (MDRD) 83 L Glucose 157 H Calcium 10.0 Total Bilirubin 0.8 AST 19 ALT 18 Alkaline Phosphatase 63 B-Natriuretic Peptide 13 Total Protein 8.0 Albumin 4.6 Globulin 3.4 Albumin/Globulin Ratio 1.4 Lipase 31 Urine Color Urine Clarity Urine pH Ur Specific [place] Urine Protein Urine Glucose (UA) Urine Ketones Urine Occult Blood Urine Nitrite Urine Bilirubin Urine Urobilinogen Ur Leukocyte Esterase Urine RBC Urine WBC Ur Squamous Epith Cells Urine Bacteria Ur Microscopic Review Urine Culture Comments Urine Opiates Screen Ur Oxycodone Screen Urine Methadone Screen Ur Propoxyphene Screen Ur Barbiturates Screen Ur Tricyclics Screen Ur Phencyclidine Scrn Ur Amphetamine Screen U Methamphetamines Scrn U Benzodiazepines Scrn Urine Cocaine Screen U Cannabinoids Screen Ethyl Alcohol < 5.0 06/28/19 11:36 WBC RBC Hgb Hct MCV MCH MCHC RDW Plt Count MPV Neut # (Auto) Lymph # (Auto) [place] # (Auto) Eos # (Auto) Baso # (Auto) Absolute Nucleated RBC Nucleated RBC % Sodium Potassium Chloride Carbon Dioxide Anion Gap BUN Creatinine Estimated GFR (MDRD) Glucose Calcium Total Bilirubin AST ALT Alkaline Phosphatase B-Natriuretic Peptide Total Protein Albumin Globulin Albumin/Globulin Ratio Lipase Urine Color DARK YELLOW Urine Clarity CLEAR Urine pH 8.5 H Ur Specific [place] 1.010 Urine Protein 30 H Urine Glucose (UA) NEGATIVE Urine Ketones 15 H Urine Occult Blood NEGATIVE Urine Nitrite NEGATIVE Urine Bilirubin NEGATIVE Urine Urobilinogen 1 (NORMAL) Ur Leukocyte Esterase NEGATIVE Urine RBC 0-5 Urine WBC 0-3 Ur Squamous Epith Cells RARE Squamous Urine Bacteria Rare Ur Microscopic Review INDICATED Urine Culture Comments NOT INDICATED Urine Opiates Screen NEGATIVE Ur Oxycodone Screen NEGATIVE Urine Methadone Screen NEGATIVE Ur Propoxyphene Screen NEGATIVE Ur Barbiturates Screen NEGATIVE Ur Tricyclics Screen NEGATIVE Ur Phencyclidine Scrn NEGATIVE Ur Amphetamine Screen POSITIVE H U Methamphetamines Scrn POSITIVE H U Benzodiazepines Scrn NEGATIVE Urine Cocaine Screen NEGATIVE U Cannabinoids Screen POSITIVE H Ethyl Alcohol Procedures - Bedside sono Bedside sono by EMP: With use of bedside ultrasound the heart is imaged there is no evidence of pericardial effusion. The heart is enlarged biventricular. The atria appear normal in size. - IVC sono (time) 1045 Bedside IVC sono: IVC measures (cm) (1.56), IVC collapsed c insp (cm) (0.90), Euvolemia PD MEDICAL DECISION MAKING - ED course Complexity details: reviewed results, re-evaluated patient, considered differential, d/w patient ED course: 24-year-old male with worries about congestive heart failure is not in congestive heart failure and his urine drug screen is positive for methamphetamine and amphetamine and negative for narcotic. The patient does ask for help and the social media strategist is consulted. The patient indicates today that he does want to stop use of drugs. He has had a prior to year period of sobriety. In the emergency department patient is treated with Toradol as well as Zofran and eventually he is administered dexamethasone as well. His fluid status is euvolemic and intravenous fluids are not administered. The patient is evaluated by the social media strategist and a bed is available at 9pm this evening at [facility]. Departure - Departure Clinical Impression: Polydrug abuse, continuous, Atypical chest pain Condition: Stable Instructions: ED Chest Pain Atypical Unkn Cause, ED Drug Abuse General, ED Withdrawal Narcotic Follow-Up: [facility] [Provider Group]
[2019-06-28 10:43] LABS: ALBUMIN 4.6 g/dL (3.2-5.5); ALBUMIN/GLOBULIN RATIO 1.4 (1.0-2.2); ALKALINE PHOSPHATASE 63 IU/L (42-121); ALT ALANINE AMINOTRANSFERASE 18 IU/L (10-60); AST ASPARTATE AMINOTRANSFERASE 19 IU/L (10-42); BILIRUBIN,TOTAL 0.8 mg/dL (0.2-1.0); BUN - BLOOD UREA NITROGEN 15 mg/dL (6-20); CARBON DIOXIDE - CO2 23 mmol/L (21-32); CHLORIDE 104 mmol/L (101-111); CREATININE 1.1 mg/dL (0.6-1.2); GFR - MDRD 83 (>89); GLUCOSE 157 mg/dL (70-100); LIPASE 31 U/L (22-51); SODIUM 142 mmol/L (135-145)
--- NOTE | 2019-06-28 11:26 | XRAY Report ---
Reason: chest pain Procedure Date: 06/28/2019 Accession Number: [id number] / [id number] Procedure: XR - Chest 2 View X-Ray CPT Code: 52097 FULL RESULT: EXAM: CHEST RADIOGRAPHY EXAM DATE: 06/28/2019 11:05 AM. CLINICAL HISTORY: Chest pain. COMPARISON: CHEST 1 VIEW 03/03/2019 4:52 AM. TECHNIQUE: 2 views. FINDINGS: Lungs/Pleura: No focal opacities evident. No pleural effusion. No pneumothorax. Normal volumes. Mediastinum: Heart and mediastinal contours are unremarkable. Other: None. IMPRESSION: No acute cardiopulmonary abnormality. [facility]
[2019-06-28 11:44] LABS: MUDS CUTOFF CONCENTRATIONS CUTOFF CONC BELOW:
[2019-06-28 11:47] LABS: BILIRUBIN,URINE NEGATIVE (NEGATIVE); GLUCOSE, URINE (UA) NEGATIVE (NEGATIVE); KETONES,URINE (UA) 15 mg/dL (NEGATIVE); LEUKOCYTE ESTERASE, URINE NEGATIVE (NEGATIVE); NITRITE,URINE NEGATIVE (NEGATIVE); OCCULT BLOOD,URINE NEGATIVE (NEGATIVE); PH,URINE 8.5 PH (5.0-7.5); PROTEIN,URINE 30 mg/dL (NEGATIVE); UROBILINOGEN,URINE 1 (NORMAL) E.U./dL (NORMAL)
[2019-06-28 11:58] LABS: CLARITY,URINE CLEAR (CLEAR)
[2019-06-28 11:59] LABS: AMPHETAMINE SCREEN,URINE POSITIVE (NEGATIVE); BENZODIAZEPINES SCREEN, URINE NEGATIVE (NEGATIVE); COCAINE SCREEN URINE NEGATIVE (NEGATIVE); METHADONE SCREEN, URINE NEGATIVE (NEGATIVE); METHAMPHETAMINES SCREEN, URINE POSITIVE (NEGATIVE); OPIATE SCREEN, URINE NEGATIVE (NEGATIVE); OXYCODONE SCREEN, URINE NEGATIVE (NEGATIVE); PROPOXYPHENE SCREEN, URINE NEGATIVE (NEGATIVE); TRICYCLIC ANTIDEPRESSANT,URINE NEGATIVE (NEGATIVE)
[2019-06-28 12:16] LABS: BACTERIA,URINE Rare /HPF (None Seen); RBC,URINE 0-5 /HPF (0-5); SQUAMOUS EPITHELIAL CELL,UR RARE Squamous (<= Few)
[2019-06-28] MEDS ORDERED: DEXAMETHASONE 10 MG/ML VIAL IVP STA (13:53)
[2019-06-28] MEDS ORDERED: MAG HYDROX/AL HYDROX/SIMETH 30 ML UDC PO STA (19:19)
[2019-06-28 22:22] VITALS: BP 99/64
== END 2019-06-28 22:35 | disposition home or self-care (01) ==
LOC: EDUNIT# → ED 09:33
DX: F19.10 Other psychoactive substance abuse, uncomplicated (principal); R07.89 Other chest pain
CPT/HCPCS: 36415; 71046; 80053; 80306; 80320; 81001; 83690; 83880; 85025; 93005; 96374; 96375; 99284; A9270; 81003; 87086

== ENCOUNTER 2019-10-19 13:31 | Emergency (ER) | payer MEDICAID ==
[2019-10-19 13:39] VITALS: BP 117/61
--- NOTE | 2019-10-19 13:48 | ED Physician Documentation ---
History of Present Illness - Stated complaint Stated Complaint: MEDICAL EVALUATION/FOR I/P - Chief complaint Chief Complaint: General - Additonal information Additional information: This is a 24-year-old male with a history of past IV drug use, who presents requesting medical clearance. Patient has court ordered treatment and he was told to come in to be medically cleared given his a history of cardiomyopathy. He currently is feeling well, he has not used any drugs since July, previous to this he did use IV methamphetamine and heroin. He is been working out daily without any problems, he has no chest pain, no shortness of breath, no leg swelling. He has been taking his lisinopril as prescribed, this is the only medication that he is on. In late September 2018 he presented to the emergency department with sepsis, and he was found to have a cardiomyopathy with ejection fraction of 30%, he was admitted to the ICU Where he had no signs of endocarditis on echocardiogram, he also had negative blood cultures and no source of infection found on labs or imaging, it sounds like he may have in fact had acute toxicity from alcohol or methamphetamine, as no infectious source was ever clearly identified. Review of Systems Constitutional: denies: Fever Cardiac: denies: Chest pain / pressure Respiratory: denies: Dyspnea GI: denies: Abdominal Pain Skin: denies: Rash PD PAST MEDICAL HISTORY - Past Medical History Cardiovascular: Other Respiratory: None Neuro: None Endocrine/Autoimmune: None GI: None : Kidney stones HEENT: None Psych: Depression, Anxiety Musculoskeletal: None Derm: None - Past Surgical History Past Surgical History: No - Present Medications Home Medications: Ambulatory Orders Medication Instructions Recorded Confirmed Lisinopril [Zestril] 5 mg PO 1200 #30 tablet 10/13/18 Naproxen 375 mg PO BID #20 tablet 10/15/18 - Allergies Allergies/Adverse Reactions: Allergies Allergy/AdvReac Type Severity Reaction Status Date / Time Penicillins Allergy Mild Rash Verified 10/19/19 13:35 - Social History Does the pt smoke?: Yes Smoking Status: Current every day smoker Does the pt drink ETOH?: Yes Does the pt have substance abuse?: Yes - Immunizations Immunizations are current?: Yes - POLST Patient has POLST: No PD ED PE NORMAL - Vitals Vital signs reviewed: Yes - General General: Alert and oriented X 3, No acute distress - HEENT HEENT: PERRL - Neck Neck: Supple, no meningeal sign - Cardiac Cardiac: RRR, No murmur - Respiratory Respiratory: No respiratory distress, Clear bilaterally - Abdomen Abdomen: Normal bowel sounds, Soft, Non tender, Non distended - Derm Derm: Warm and dry - Extremities Extremities: No deformity - Neuro Neuro: Alert and oriented X 3, director of content marketing 2-12 intact, No motor deficit, No sensory deficit, Normal speech - Psych Psych: Normal mood, Normal affect Results - Vitals Vitals: Vital Signs - 24 hr 10/19/19 13:35 Temperature 37.3 C Heart Rate 82 Respiratory 17 Rate Blood Pressure 117/61 O2 Saturation 97 Oxygen O2 Source Room air - Labs Labs: Laboratory Tests 10/19/19 10/19/19 10/19/19 13:55 13:55 13:55 WBC 8.7 RBC 4.42 L Hgb 13.9 L Hct 42.7 MCV 96.6 H MCH 31.4 H MCHC 32.6 RDW 15.7 H Plt Count 207 MPV 9.8 Neut # (Auto) 6.3 Lymph # (Auto) 1.6 [place] # (Auto) 0.6 Eos # (Auto) 0.2 Baso # (Auto) 0.0 Absolute Nucleated RBC 0.00 Nucleated RBC % 0.0 Sodium 142 Potassium 4.1 Chloride 105 Carbon Dioxide 27 Anion Gap 10.0 BUN 16 Creatinine 1.0 Estimated GFR (MDRD) 93 Glucose 96 Calcium 9.1 Total Bilirubin 0.8 AST 41 ALT 32 Alkaline Phosphatase 59 B-Natriuretic Peptide 46 Total Protein 7.4 Albumin 4.6 Globulin 2.8 Albumin/Globulin Ratio 1.6 Lipase 40 - Rads (name of study) POCUS Radiology: Other (Bedside cardiac ultrasound shows a grossly normal ejection fraction no pericardial effusion.) PD MEDICAL DECISION MAKING - ED course ED course: Patient is very well-appearing and asymptomatic on arrival, his vital signs are unreamrkable. He is alert, cooperative, very polite. He was sent in for medical clearance for court ordered treatment because he had a history of cardiomyopathy, it appears that his ejection fraction in the past was 30% during the time when he had possible sepsis. His labs today are unrevealing, he has a normal BNP, and his bedside ultrasound shows a grossly normal ejection fraction. I do not see signs of any acute/emergent medical condition that would preclude him from receiving court order treatment. I discussed with him that his results look reassuring, that he needs to continue to follow-up with his outpatient providers, and that from my limited evaluation today he appears doing a very good job avoiding drugs and taking care of himself. I reviewed return precautions with the patient, and he was discharged home. Departure - Departure Disposition: Home, Self Care Clinical Impression: Medical clearance for psychiatric admission Condition: Good Follow-Up: Your,PCP [Other] (For general follow up) Comments: Your labs are very reassuring today. I do not see signs of strain on your heart. The ultrasound today did not show any obvious signs of heart failure. You appear to be doing a very good job taking care of your health. Please follow-up with your primary care provider, and if you are developing any concerning symptoms Such as difficulty breathing, leg swelling return to the emergency department for reevaluation. Forms: Activity restrictions
[2019-10-19 14:00] LABS: BASOPHILS % (AUTO) 0.5 %; EOSINOPHILS # (AUTO) 0.2 10^3/uL (0.0-0.7); EOSINOPHILS % (AUTO) 2.1 %; HGB - HEMOGLOBIN 13.9 g/dL (14.0-18.0); LYMPHOCYTES # (AUTO) 1.6 10^3/uL (1.5-3.5); LYMPHOCYTES % (AUTO) 18.5 %; MEAN CORPUSCULAR HEMOGLOBIN 31.4 pg (27.0-31.0); MEAN CORPUSCULAR HGB CONC 32.6 g/dL (32.0-36.0); MEAN CORPUSCULAR VOLUME 96.6 fL (80.0-94.0); MEAN PLATELET VOLUME 9.8 fL (7.4-11.4); MONOCYTES # (AUTO) 0.6 10^3/uL (0.0-1.0); MONOCYTES % (AUTO) 6.8 %; NEUTROPHILS # (AUTO) 6.3 10^3/uL (1.5-6.6); NEUTROPHILS % (AUTO) 71.8 %; PLT - PLATELET COUNT 207 10^3/uL (130-450); RED BLOOD COUNT 4.42 10^6/uL (4.70-6.10); RED CELL DISTRIBUTION WIDTH 15.7 % (12.0-15.0); WHITE BLOOD COUNT 8.7 x10^3/uL (4.8-10.8)
[2019-10-19 14:14] LABS: ALBUMIN 4.6 g/dL (3.2-5.5); ALBUMIN/GLOBULIN RATIO 1.6 (1.0-2.2); BILIRUBIN,TOTAL 0.8 mg/dL (0.2-1.0); CALCIUM 9.1 mg/dL (8.5-10.3); TOTAL PROTEIN 7.4 g/dL (6.7-8.2)
== END 2019-10-19 14:54 | disposition home or self-care (01) ==
LOC: ED 13:31
DX: I42.9 Cardiomyopathy, unspecified (principal); F17.200 Nicotine dependence, unspecified, uncomplicated
CPT/HCPCS: 36415; 80053; 83690; 83880; 85025; 99282; 99283

== ENCOUNTER 2020-07-07 10:18 | Outpatient (CLI) | payer MEDICAID ==
[2020-07-08 08:20] LABS: HIV AG/AB 4TH GEN NON-REACTIVE (NON-REACTIVE)
[2020-07-08 13:32] LABS: HEPATITIS C ANTIBODY REACTIVE (NON-REACTIVE)
[2020-07-12 07:52] LABS: HCV RNA QNT 6.23 Log IU/mL (NOT DETECTED); HCV RNA QUANT RT PCR 1710000 IU/mL (NOT DETECTED)
== END 2020-07-07 23:59 | disposition home or self-care (01) ==
LOC: LAB.WCP 10:18
PROVIDERS: ATTEND Nurse Practitioner Family
DX: F19.10 Other psychoactive substance abuse, uncomplicated (principal); Z11.3 Encounter for screening for infections with a predominantly sexual mode of transmission
CPT/HCPCS: 36415; 81599; 86592; 86803; 87389; 87491; 87591; 87661

== ENCOUNTER 2020-08-15 06:19 | Emergency (ER) | payer MEDICAID ==
[2020-08-15] MEDS ORDERED: ONDANSETRON ODT 4 MG TABLET TL STA (07:39)
[2020-08-15] MEDS ORDERED: HALOPERIDOL 5 MG/ML VIAL IM STA (07:39)
--- NOTE | 2020-08-15 07:53 | ED Physician Documentation ---
History of Present Illness - Stated complaint Stated Complaint: MOUTH PX, WITHDRAWAL SX - Chief complaint Chief Complaint: General - History obtained from History obtained from: Patient - Additonal information Additional information: Patient comes emergency department complaining of nausea and shakes while withdrawing from heroin. Patient states that his last use of any drugs was 2 days ago. 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 He states he stopped using the heroin and meth because he wanted to try to get off drugs. Patient denies fevers or chills. He states he has had shakes and sweats and his teeth hurt. He denies any specific tooth hurting but that he generally just has a sense of pain there. Patient has generalized soreness in his abdomen but denies any specific pain. No chest pain. No other complaints at this time. Review of Systems Ten Systems: 10 systems reviewed and negative Constitutional: reports: Sweats Eyes: reports: Reviewed and negative Ears: reports: Reviewed and negative Nose: reports: Reviewed and negative Throat: reports: Dental pain / toothache Cardiac: reports: Reviewed and negative Respiratory: reports: Reviewed and negative GI: reports: Nausea, Vomiting : reports: Reviewed and negative Skin: reports: Reviewed and negative Musculoskeletal: reports: Reviewed and negative Neurologic: reports: Other (Tremors) Psychiatric: reports: Reviewed and negative Endocrine: reports: Reviewed and negative Immunocompromised: reports: Reviewed and negative PD PAST MEDICAL HISTORY - Past Medical History Past Medical History: Yes Cardiovascular: Congestive heart failure, Other Respiratory: None Neuro: None Endocrine/Autoimmune: None GI: None : Kidney stones HEENT: None Psych: Depression, Anxiety Musculoskeletal: None Derm: None - Past Surgical History Past Surgical History: No - Present Medications Home Medications: Ambulatory Orders Medication Instructions Recorded Confirmed lisinopriL [Zestril] 5 mg PO 1200 #30 tablet 10/13/18 Naproxen 375 mg PO BID #20 tablet 10/15/18 - Allergies Allergies/Adverse Reactions: Allergies Allergy/AdvReac Type Severity Reaction Status Date / Time Penicillins Allergy Mild Rash Verified 08/15/20 06:45 - Social History Does the pt smoke?: Yes Smoking Status: Current every day smoker Does the pt drink ETOH?: Yes Does the pt have substance abuse?: Yes Substance Use and Type: Meth, Heroin - Immunizations Immunizations are current?: Yes - POLST Patient has POLST: No PD ED PE NORMAL - Vitals Vital signs reviewed: Yes - General General: Alert and oriented X 3, No acute distress, Other (Patient appears moderately uncomfortable, but otherwise no apparent distress.) - HEENT HEENT: Atraumatic, PERRL, EOMI, Moist mucous membranes - Neck Neck: Supple, no meningeal sign - Cardiac Cardiac: RRR, No murmur - Respiratory Respiratory: No respiratory distress, Clear bilaterally - Abdomen Abdomen: Soft, Non distended, Other (Mild diffuse tenderness) - Derm Derm: Normal color, Other (Slight diaphoresis.) - Extremities Extremities: No deformity, No edema, No calf tenderness / cord - Neuro Neuro: Alert and oriented X 3, drilling and production superintendent 2-12 intact, No motor deficit, No sensory deficit, Normal speech - Psych Psych: Normal mood, Normal affect Results - Vitals Vitals: Vital Signs - 24 hr 08/15/20 08/15/20 08/15/20 06:45 07:45 08:19 Temperature 36.7 C Heart Rate 65 57 L 54 L Respiratory 24 26 H 24 Rate Blood Pressure 138/83 H 140/85 H 151/88 H O2 Saturation 99 94 99 08/15/20 08/15/20 08/15/20 10:27 12:00 14:00 Temperature Heart Rate 59 L 58 L 61 Respiratory 20 27 H 20 Rate Blood Pressure 144/84 H 143/90 H 138/83 H O2 Saturation 97 97 99 Oxygen O2 Source Room air - Labs Labs: Laboratory Tests 08/15/20 08/15/20 08/15/20 08:45 08:57 08:57 WBC 11.7 H RBC 5.30 Hgb 16.1 Hct 49.2 MCV 92.8 MCH 30.4 MCHC 32.7 RDW 13.6 Plt Count 238 MPV 10.0 Neut # (Auto) 9.8 H Lymph # (Auto) 1.4 L [place] # (Auto) 0.4 Eos # (Auto) 0.0 Baso # (Auto) 0.0 Absolute Nucleated RBC 0.00 Nucleated RBC % 0.0 Sodium 138 Potassium 3.8 Chloride 99 L Carbon Dioxide 27 Anion Gap 12.0 BUN 15 Creatinine 0.9 Estimated GFR (MDRD) 104 Glucose 133 H Calcium 9.8 Total Bilirubin 1.1 H AST 130 H ALT 324 H Alkaline Phosphatase 91 Total Protein 8.3 H Albumin 4.7 Globulin 3.6 Albumin/Globulin Ratio 1.3 Lipase 29 Urine Opiates Screen POSITIVE H Ur Oxycodone Screen NEGATIVE Urine Methadone Screen NEGATIVE Ur Propoxyphene Screen NEGATIVE Ur Barbiturates Screen NEGATIVE Ur Tricyclics Screen NEGATIVE Ur Phencyclidine Scrn NEGATIVE Ur Amphetamine Screen POSITIVE H U Methamphetamines Scrn POSITIVE H U Benzodiazepines Scrn NEGATIVE Urine Cocaine Screen NEGATIVE U Cannabinoids Screen POSITIVE H Ethyl Alcohol < 5.0 PD MEDICAL DECISION MAKING - ED course Complexity details: considered differential, d/w patient ED course: The patient was treated symptomatically with Zofran and Haldol in the emergency department. He did state that he wished to go to detox, and some medical clearance labs were obtained. The patient was indeed medically cleared and social work was consulted. The patient was accepted at [facility]. Departure - Departure Disposition: 01 Home, Self Care Clinical Impression: Polysubstance abuse, Opiate withdrawal Condition: Stable Instructions: ED Drug Abuse General Comments: Please take the cab straight to [facility] detox, as per the plan.
[2020-08-15 08:59] LABS: MUDS CUTOFF CONCENTRATIONS CUTOFF CONC BELOW:
[2020-08-15 09:06] LABS: BASOPHILS % (AUTO) 0.3 %; EOSINOPHILS % (AUTO) 0.3 %; HGB - HEMOGLOBIN 16.1 g/dL (14.0-18.0); LYMPHOCYTES # (AUTO) 1.4 10^3/uL (1.5-3.5); LYMPHOCYTES % (AUTO) 12.1 %; MEAN CORPUSCULAR HEMOGLOBIN 30.4 pg (27.0-31.0); MEAN CORPUSCULAR HGB CONC 32.7 g/dL (32.0-36.0); MEAN CORPUSCULAR VOLUME 92.8 fL (80.0-94.0); MONOCYTES # (AUTO) 0.4 10^3/uL (0.0-1.0); MONOCYTES % (AUTO) 3.3 %; NEUTROPHILS # (AUTO) 9.8 10^3/uL (1.5-6.6); NEUTROPHILS % (AUTO) 83.4 %; PLT - PLATELET COUNT 238 10^3/uL (130-450); RED CELL DISTRIBUTION WIDTH 13.6 % (12.0-15.0); WHITE BLOOD COUNT 11.7 x10^3/uL (4.8-10.8)
[2020-08-15 09:15] LABS: AMPHETAMINE SCREEN,URINE POSITIVE (NEGATIVE); METHAMPHETAMINES SCREEN, URINE POSITIVE (NEGATIVE); OPIATE SCREEN, URINE POSITIVE (NEGATIVE)
[2020-08-15 09:16] LABS: BENZODIAZEPINES SCREEN, URINE NEGATIVE (NEGATIVE); COCAINE SCREEN URINE NEGATIVE (NEGATIVE); METHADONE SCREEN, URINE NEGATIVE (NEGATIVE); OXYCODONE SCREEN, URINE NEGATIVE (NEGATIVE); PROPOXYPHENE SCREEN, URINE NEGATIVE (NEGATIVE); TRICYCLIC ANTIDEPRESSANT,URINE NEGATIVE (NEGATIVE)
[2020-08-15 09:26] LABS: ALBUMIN 4.7 g/dL (3.2-5.5); ALBUMIN/GLOBULIN RATIO 1.3 (1.0-2.2); ALKALINE PHOSPHATASE 91 IU/L (42-121); ALT ALANINE AMINOTRANSFERASE 324 IU/L (10-60); AST ASPARTATE AMINOTRANSFERASE 130 IU/L (10-42); BILIRUBIN,TOTAL 1.1 mg/dL (0.2-1.0); BUN - BLOOD UREA NITROGEN 15 mg/dL (6-20); CALCIUM 9.8 mg/dL (8.5-10.3); CARBON DIOXIDE - CO2 27 mmol/L (21-32); CHLORIDE 99 mmol/L (101-111); CREATININE 0.9 mg/dL (0.6-1.2); GLUCOSE 133 mg/dL (70-100); LIPASE 29 U/L (22-51); SODIUM 138 mmol/L (135-145); TOTAL PROTEIN 8.3 g/dL (6.7-8.2)
[2020-08-15 15:02] VITALS: BP 148/99
== END 2020-08-15 15:44 | disposition home or self-care (01) ==
LOC: ED 06:19
DX: F11.23 Opioid dependence with withdrawal (principal); F15.10 Other stimulant abuse, uncomplicated; F17.200 Nicotine dependence, unspecified, uncomplicated; Z20.828 Contact with and (suspected) exposure to other viral communicable diseases
CPT/HCPCS: 36415; 80053; 80306; 80320; 83690; 85025; 87635; 96372; 99283; 99284; Q0162

== ENCOUNTER 2020-08-22 20:04 | Outpatient (CLI) | payer MEDICAID | END 2020-08-22 23:59 | disposition critical access hospital (66) | LOC: EMS 20:04 | PROVIDERS: ATTEND Surgery | DX: R45.851 Suicidal ideations (principal); R45.850 Homicidal ideations; S09.90XA Unspecified injury of head, initial encounter; Y00.XXXA Assault by blunt object, initial encounter; Y92.039 Unspecified place in apartment as the place of occurrence of the external cause | CPT/HCPCS: A0425; A0429; A0999 ==

== ENCOUNTER 2020-08-22 20:22 | Emergency (ER) | payer MEDICAID ==
--- NOTE | 2020-08-22 20:24 | ED Physician Documentation ---
History of Present Illness - Stated complaint Stated Complaint: SI/HI - History obtained from History obtained from: EMS - Additonal information Additional information: Patient is a 25-year-old male brought in involuntarily for using drugs and making suicidal and homicidal threats.Patient's refusing to answer any questions. Review of Systems Unable to obtain: Uncooperative PD PAST MEDICAL HISTORY - Past Medical History Cardiovascular: Congestive heart failure, Other Respiratory: None Neuro: None Endocrine/Autoimmune: None GI: None : Kidney stones HEENT: None Psych: Depression, Anxiety Musculoskeletal: None Derm: None - Past Surgical History Past Surgical History: No - Present Medications Home Medications: Ambulatory Orders Medication Instructions Recorded Confirmed lisinopriL [Zestril] 5 mg PO 1200 #30 tablet 10/13/18 Naproxen 375 mg PO BID #20 tablet 10/15/18 - Allergies Allergies/Adverse Reactions: Allergies Allergy/AdvReac Type Severity Reaction Status Date / Time Penicillins Allergy Mild Rash Verified 08/22/20 20:34 - Social History Does the pt smoke?: Yes Smoking Status: Current every day smoker Does the pt drink ETOH?: Yes Does the pt have substance abuse?: Yes - Immunizations Immunizations are current?: Yes - POLST Patient has POLST: No PD ED PE NORMAL - Vitals Vital signs reviewed: Yes - General General: Alert and oriented X 3, No acute distress - HEENT HEENT: PERRL - Neck Neck: Supple, no meningeal sign - Cardiac Cardiac: RRR, No murmur - Respiratory Respiratory: Clear bilaterally - Abdomen Abdomen: Normal bowel sounds, Soft, Non tender, Non distended - Derm Derm: Warm and dry, Other (Right antecubital fossa 2 x 2 centimeter area of erythema no crepitus no fluctuance or induration) - Extremities Extremities: No deformity - Neuro Neuro: Alert and oriented X 3 - Psych Psych: Other (Irritable, flight of ideas, making suicidal and homicidal threats.) Results - Vitals Vitals: Vital Signs - 24 hr 08/22/20 08/22/20 08/23/20 20:25 23:50 00:05 Temperature 98.7 C H Heart Rate 104 H 92 92 Respiratory 18 20 18 Rate Blood Pressure 127/81 H 118/67 123/77 O2 Saturation 99 95 95 08/23/20 08/23/20 08/23/20 00:10 00:30 00:45 Temperature Heart Rate 95 98 97 Respiratory 16 16 16 Rate Blood Pressure 122/71 126/78 128/85 H O2 Saturation 97 98 97 08/23/20 08/23/20 08/23/20 01:00 01:15 01:30 Temperature Heart Rate 97 89 95 Respiratory 16 15 15 Rate Blood Pressure 140/82 H 139/97 H 135/90 H O2 Saturation 94 98 98 Oxygen O2 Source Room air - Labs Labs: Laboratory Tests 08/22/20 08/22/20 08/22/20 20:50 20:50 20:50 WBC 7.2 RBC 4.52 L Hgb 13.8 L Hct 40.7 L MCV 90.0 MCH 30.5 MCHC 33.9 RDW 13.2 Plt Count 301 MPV 9.1 Neut # (Auto) 4.4 Lymph # (Auto) 1.9 [place] # (Auto) 0.8 Eos # (Auto) 0.1 Baso # (Auto) 0.0 Absolute Nucleated RBC 0.00 Nucleated RBC % 0.0 Sodium 143 Potassium 3.6 Chloride 105 Carbon Dioxide 27 Anion Gap 11.0 BUN 11 Creatinine 0.9 Estimated GFR (MDRD) 104 Glucose 109 H Calcium 9.4 Total Bilirubin 0.7 AST 79 H ALT 184 H Alkaline Phosphatase 74 Total Protein 6.9 Albumin 3.9 Globulin 3.0 Albumin/Globulin Ratio 1.3 Lipase 26 TSH 0.64 Urine Color Urine Clarity Urine pH Ur Specific [place] Urine Protein Urine Glucose (UA) Urine Ketones Urine Occult Blood Urine Nitrite Urine Bilirubin Urine Urobilinogen Ur Leukocyte Esterase Urine RBC Urine WBC Ur Squamous Epith Cells Urine Bacteria Urine Casts Urine Mucus Ur Microscopic Review Urine Culture Comments Salicylates < 6.0 Urine Opiates Screen Ur Oxycodone Screen Urine Methadone Screen Ur Propoxyphene Screen Acetaminophen < 10 L Ur Barbiturates Screen Ur Tricyclics Screen Ur Phencyclidine Scrn Ur Amphetamine Screen U Methamphetamines Scrn U Benzodiazepines Scrn Urine Cocaine Screen U Cannabinoids Screen Ethyl Alcohol < 5.0 08/22/20 21:08 WBC RBC Hgb Hct MCV MCH MCHC RDW Plt Count MPV Neut # (Auto) Lymph # (Auto) [place] # (Auto) Eos # (Auto) Baso # (Auto) Absolute Nucleated RBC Nucleated RBC % Sodium Potassium Chloride Carbon Dioxide Anion Gap BUN Creatinine Estimated GFR (MDRD) Glucose Calcium Total Bilirubin AST ALT Alkaline Phosphatase Total Protein Albumin Globulin Albumin/Globulin Ratio Lipase TSH Urine Color YELLOW Urine Clarity HAZY Urine pH 7.0 Ur Specific [place] 1.020 Urine Protein NEGATIVE Urine Glucose (UA) NEGATIVE Urine Ketones NEGATIVE Urine Occult Blood LARGE H Urine Nitrite NEGATIVE Urine Bilirubin NEGATIVE Urine Urobilinogen 1 (NORMAL) Ur Leukocyte Esterase NEGATIVE Urine RBC 11-25 H Urine WBC 0-3 Ur Squamous Epith Cells RARE Squamous Urine Bacteria Few Urine Casts 6-10 Hyaline Casts Urine Mucus Few Strands Ur Microscopic Review INDICATED Urine Culture Comments NOT INDICATED Salicylates Urine Opiates Screen POSITIVE H Ur Oxycodone Screen NEGATIVE Urine Methadone Screen NEGATIVE Ur Propoxyphene Screen NEGATIVE Acetaminophen Ur Barbiturates Screen NEGATIVE Ur Tricyclics Screen NEGATIVE Ur Phencyclidine Scrn NEGATIVE Ur Amphetamine Screen POSITIVE H U Methamphetamines Scrn POSITIVE H U Benzodiazepines Scrn NEGATIVE Urine Cocaine Screen NEGATIVE U Cannabinoids Screen POSITIVE H Ethyl Alcohol PD MEDICAL DECISION MAKING - ED course Complexity details: reviewed results, re-evaluated patient, considered differential, d/w patient ED course: 25-year-old male who is uncooperative admits to IV drug abuse making homicidal and suicidal threats he eloped from the emergency department and was brought back by law enforcement he is here involuntarily he became extremely agitated and violent and aggressive patient was physically and chemically restrained. Patient will be evaluated by the [facility]. patient signed out at shift change to dr shaji valdes Departure - Departure Clinical Impression: Polydrug abuse, continuous, Suicidal ideation Condition: Stable
[2020-08-22] MEDS ORDERED: BACITRACIN ZINC OINT 1 PACKET TOP STA (20:55)
[2020-08-22] MEDS ORDERED: TETANUS/DIPHTHERIA/PERTUSSIS 0.5 ML SYRINGE IM ONE (20:55)
[2020-08-22 20:56] LABS: BASOPHILS % (AUTO) 0.6 %; EOSINOPHILS # (AUTO) 0.1 10^3/uL (0.0-0.7); EOSINOPHILS % (AUTO) 0.8 %; HGB - HEMOGLOBIN 13.8 g/dL (14.0-18.0); LYMPHOCYTES # (AUTO) 1.9 10^3/uL (1.5-3.5); MEAN CORPUSCULAR HEMOGLOBIN 30.5 pg (27.0-31.0); MEAN CORPUSCULAR HGB CONC 33.9 g/dL (32.0-36.0); MEAN PLATELET VOLUME 9.1 fL (7.4-11.4); MONOCYTES # (AUTO) 0.8 10^3/uL (0.0-1.0); MONOCYTES % (AUTO) 11.1 %; NEUTROPHILS # (AUTO) 4.4 10^3/uL (1.5-6.6); NEUTROPHILS % (AUTO) 61.1 %; PLT - PLATELET COUNT 301 10^3/uL (130-450); RED BLOOD COUNT 4.52 10^6/uL (4.70-6.10); RED CELL DISTRIBUTION WIDTH 13.2 % (12.0-15.0); WHITE BLOOD COUNT 7.2 x10^3/uL (4.8-10.8)
[2020-08-22 21:10] LABS: ACETAMINOPHEN < 10 ug/mL (10-30); ALBUMIN 3.9 g/dL (3.2-5.5); ALBUMIN/GLOBULIN RATIO 1.3 (1.0-2.2); ALKALINE PHOSPHATASE 74 IU/L (42-121); ALT ALANINE AMINOTRANSFERASE 184 IU/L (10-60); AST ASPARTATE AMINOTRANSFERASE 79 IU/L (10-42); BILIRUBIN,TOTAL 0.7 mg/dL (0.2-1.0); BUN - BLOOD UREA NITROGEN 11 mg/dL (6-20); CALCIUM 9.4 mg/dL (8.5-10.3); CARBON DIOXIDE - CO2 27 mmol/L (21-32); CHLORIDE 105 mmol/L (101-111); CREATININE 0.9 mg/dL (0.6-1.2); GLUCOSE 109 mg/dL (70-100); LIPASE 26 U/L (22-51); SALICYLATE < 6.0 mg/dL; SODIUM 143 mmol/L (135-145); TOTAL PROTEIN 6.9 g/dL (6.7-8.2)
[2020-08-22 21:36] LABS: MUDS CUTOFF CONCENTRATIONS CUTOFF CONC BELOW:
[2020-08-22 21:38] LABS: BILIRUBIN,URINE NEGATIVE (NEGATIVE); CLARITY,URINE HAZY (CLEAR); GLUCOSE, URINE (UA) NEGATIVE (NEGATIVE); KETONES,URINE (UA) NEGATIVE (NEGATIVE); LEUKOCYTE ESTERASE, URINE NEGATIVE (NEGATIVE); NITRITE,URINE NEGATIVE (NEGATIVE); OCCULT BLOOD,URINE LARGE (NEGATIVE); PROTEIN,URINE NEGATIVE (NEGATIVE); UROBILINOGEN,URINE 1 (NORMAL) E.U./dL (NORMAL)
[2020-08-22 21:46] LABS: BACTERIA,URINE Few /HPF (None Seen); MUCUS,URINE Few Strands; SQUAMOUS EPITHELIAL CELL,UR RARE Squamous (<= Few)
[2020-08-22 21:48] LABS: AMPHETAMINE SCREEN,URINE POSITIVE (NEGATIVE); BENZODIAZEPINES SCREEN, URINE NEGATIVE (NEGATIVE); COCAINE SCREEN URINE NEGATIVE (NEGATIVE); METHADONE SCREEN, URINE NEGATIVE (NEGATIVE); METHAMPHETAMINES SCREEN, URINE POSITIVE (NEGATIVE); OPIATE SCREEN, URINE POSITIVE (NEGATIVE); OXYCODONE SCREEN, URINE NEGATIVE (NEGATIVE); PROPOXYPHENE SCREEN, URINE NEGATIVE (NEGATIVE); TRICYCLIC ANTIDEPRESSANT,URINE NEGATIVE (NEGATIVE)
[2020-08-22] MEDS ORDERED: diphenhydrAMINE INJ 50 MG/ML VIAL IM STA (23:30)
[2020-08-22] MEDS ORDERED: LORazepam 2 MG/ML VIAL IM STA (23:30)
[2020-08-22] MEDS ORDERED: HALOPERIDOL 5 MG/ML VIAL IM STA (23:30)
[2020-08-22] MEDS ORDERED: LORazepam 2 MG/ML VIAL ONE (23:37)
[2020-08-22] MEDS ORDERED: HALOPERIDOL 5 MG/ML VIAL ONE (23:38)
[2020-08-22] MEDS ORDERED: diphenhydrAMINE INJ 50 MG/ML VIAL ONE (23:38)
--- NOTE | 2020-08-23 18:17 | ED Physician Documentation ---
ED Addendum - Addendum Addendum: 08/23/20 18:15 25-year-old male with a history of drug use has a criminal history as well and she is now trying to get arrested to get treatment. He feels that he is a bad person and he is attempting to get suicide by police. He is attempting to find any way he can to get arrested. He is stealing he is asking what he has to steal to get arrested. 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 He is wanting to get treatment. He feels that he needs to be locked up.The DCR is currently working on placement for the patient. Today he has slept most of the day and has not required restraints. He is detained and he is now cooperative.Last night he was not cooperative and required heavy chemical restraint as well as physical restraint.
--- NOTE | 2020-08-23 23:26 | ED Physician Documentation ---
ED Addendum - Addendum Addendum: 08/23/20 23:25 patient accepted at [facility] by aneglica CABAN. Departure - Departure Disposition: 65 Psych Hosp/Unit DC/Xfer Clinical Impression: Polydrug abuse, continuous, Suicidal ideation Condition: Stable Results - Vitals Vitals: Vital Signs - 24 hr 08/23/20 08/23/20 08/23/20 01:30 07:45 09:05 Temperature 36.6 C Heart Rate 95 56 L Respiratory 15 15 Rate Blood Pressure 135/90 H 133/93 H O2 Saturation 98 100 08/23/20 08/23/20 08/24/20 13:06 21:24 00:34 Temperature 37.5 C Heart Rate 76 71 58 L Respiratory 20 Rate Blood Pressure 129/80 131/90 H 113/69 O2 Saturation 93 96 98 Oxygen O2 Source Room air - EKG (time done) 20:25 Rate: Other (no stemi) - Labs Labs: Laboratory Tests 08/22/20 08/22/20 08/22/20 20:50 20:50 20:50 WBC 7.2 RBC 4.52 L Hgb 13.8 L Hct 40.7 L MCV 90.0 MCH 30.5 MCHC 33.9 RDW 13.2 Plt Count 301 MPV 9.1 Neut # (Auto) 4.4 Lymph # (Auto) 1.9 [place] # (Auto) 0.8 Eos # (Auto) 0.1 Baso # (Auto) 0.0 Absolute Nucleated RBC 0.00 Nucleated RBC % 0.0 Sodium 143 Potassium 3.6 Chloride 105 Carbon Dioxide 27 Anion Gap 11.0 BUN 11 Creatinine 0.9 Estimated GFR (MDRD) 104 Glucose 109 H Calcium 9.4 Total Bilirubin 0.7 AST 79 H ALT 184 H Alkaline Phosphatase 74 Total Protein 6.9 Albumin 3.9 Globulin 3.0 Albumin/Globulin Ratio 1.3 Lipase 26 TSH 0.64 Urine Color Urine Clarity Urine pH Ur Specific [place] Urine Protein Urine Glucose (UA) Urine Ketones Urine Occult Blood Urine Nitrite Urine Bilirubin Urine Urobilinogen Ur Leukocyte Esterase Urine RBC Urine WBC Ur Squamous Epith Cells Urine Bacteria Urine Casts Urine Mucus Ur Microscopic Review Urine Culture Comments Salicylates < 6.0 Urine Opiates Screen Ur Oxycodone Screen Urine Methadone Screen Ur Propoxyphene Screen Acetaminophen < 10 L Ur Barbiturates Screen Ur Tricyclics Screen Ur Phencyclidine Scrn Ur Amphetamine Screen U Methamphetamines Scrn U Benzodiazepines Scrn Urine Cocaine Screen U Cannabinoids Screen Ethyl Alcohol < 5.0 08/22/20 21:08 WBC RBC Hgb Hct MCV MCH MCHC RDW Plt Count MPV Neut # (Auto) Lymph # (Auto) [place] # (Auto) Eos # (Auto) Baso # (Auto) Absolute Nucleated RBC Nucleated RBC % Sodium Potassium Chloride Carbon Dioxide Anion Gap BUN Creatinine Estimated GFR (MDRD) Glucose Calcium Total Bilirubin AST ALT Alkaline Phosphatase Total Protein Albumin Globulin Albumin/Globulin Ratio Lipase TSH Urine Color YELLOW Urine Clarity HAZY Urine pH 7.0 Ur Specific [place] 1.020 Urine Protein NEGATIVE Urine Glucose (UA) NEGATIVE Urine Ketones NEGATIVE Urine Occult Blood LARGE H Urine Nitrite NEGATIVE Urine Bilirubin NEGATIVE Urine Urobilinogen 1 (NORMAL) Ur Leukocyte Esterase NEGATIVE Urine RBC 11-25 H Urine WBC 0-3 Ur Squamous Epith Cells RARE Squamous Urine Bacteria Few Urine Casts 6-10 Hyaline Casts Urine Mucus Few Strands Ur Microscopic Review INDICATED Urine Culture Comments NOT INDICATED Salicylates Urine Opiates Screen POSITIVE H Ur Oxycodone Screen NEGATIVE Urine Methadone Screen NEGATIVE Ur Propoxyphene Screen NEGATIVE Acetaminophen Ur Barbiturates Screen NEGATIVE Ur Tricyclics Screen NEGATIVE Ur Phencyclidine Scrn NEGATIVE Ur Amphetamine Screen POSITIVE H U Methamphetamines Scrn POSITIVE H U Benzodiazepines Scrn NEGATIVE Urine Cocaine Screen NEGATIVE U Cannabinoids Screen POSITIVE H Ethyl Alcohol
[2020-08-24 08:09] VITALS: BP 108/84
== END 2020-08-24 08:41 ==
LOC: EDUNIT# → ED 20:22
DX: F19.10 Other psychoactive substance abuse, uncomplicated (principal); R45.851 Suicidal ideations; R45.1 Restlessness and agitation; Z78.1 Physical restraint status; I49.1 Atrial premature depolarization; F17.200 Nicotine dependence, unspecified, uncomplicated; Z20.828 Contact with and (suspected) exposure to other viral communicable diseases
CPT/HCPCS: 36415; 80053; 80306; 80307; 80320; 80329; 81001; 83690; 84443; 85025; 87635; 93005; 96372; 99285; J1200; J2060; 81003; 87086

== ENCOUNTER 2020-11-01 14:24 | Outpatient (CLI) | payer MEDICAID ==
[2020-11-02 12:58] LABS: HEPATITIS C ANTIBODY REACTIVE (NON-REACTIVE)
[2020-11-02 13:57] LABS: HIV AG/AB 4TH GEN NON-REACTIVE (NON-REACTIVE)
[2020-11-03 12:32] LABS: HCV RNA QNT <1.18 NOT DETECTED Log IU/mL (NOT DETECTED); HCV RNA QUANT RT PCR <15 NOT DETECTED IU/mL (NOT DETECTED)
== END 2020-11-01 14:25 | disposition home or self-care (01) ==
LOC: LAB.WCP 14:24
PROVIDERS: ATTEND Nurse Practitioner Family
DX: Z11.3 Encounter for screening for infections with a predominantly sexual mode of transmission (principal); F19.10 Other psychoactive substance abuse, uncomplicated
CPT/HCPCS: 36415; 81599; 86592; 86803; 87389; 87491; 87591; 87661

== ENCOUNTER 2020-11-26 09:21 | Emergency (ER) | payer MEDICAID ==
[2020-11-26] MEDS ORDERED: SODIUM CHLORIDE 0.9% 1,000 ML IV STA (09:50)
[2020-11-26] MEDS ORDERED: BUPRENORPHINE 0.3 MG/ML AMP IVP ONE (09:50)
[2020-11-26] MEDS ORDERED: ONDANSETRON 4 MG/2 ML VIAL IVP STA (09:51)
[2020-11-26] MEDS ORDERED: BUPRENORPHINE 0.3 MG/ML VIAL IVP STA (10:00)
[2020-11-26 10:03] LABS: BASOPHILS % (AUTO) 0.4 %; EOSINOPHILS # (AUTO) 0.1 10^3/uL (0.0-0.7); EOSINOPHILS % (AUTO) 1.5 %; HGB - HEMOGLOBIN 15.9 g/dL (14.0-18.0); LYMPHOCYTES # (AUTO) 2.2 10^3/uL (1.5-3.5); LYMPHOCYTES % (AUTO) 30.3 %; MEAN CORPUSCULAR HEMOGLOBIN 31.4 pg (27.0-31.0); MEAN CORPUSCULAR HGB CONC 34.3 g/dL (32.0-36.0); MEAN CORPUSCULAR VOLUME 91.5 fL (80.0-94.0); MEAN PLATELET VOLUME 10.5 fL (7.4-11.4); MONOCYTES # (AUTO) 0.5 10^3/uL (0.0-1.0); MONOCYTES % (AUTO) 6.1 %; NEUTROPHILS # (AUTO) 4.5 10^3/uL (1.5-6.6); NEUTROPHILS % (AUTO) 61.4 %; PLT - PLATELET COUNT 256 10^3/uL (130-450); RED BLOOD COUNT 5.06 10^6/uL (4.70-6.10); RED CELL DISTRIBUTION WIDTH 12.3 % (12.0-15.0); WHITE BLOOD COUNT 7.4 x10^3/uL (4.8-10.8)
[2020-11-26 10:15] LABS: ALBUMIN 4.8 g/dL (3.2-5.5); ALBUMIN/GLOBULIN RATIO 1.7 (1.0-2.2); BILIRUBIN,TOTAL 0.7 mg/dL (0.2-1.0); CALCIUM 9.8 mg/dL (8.5-10.3); CREATININE 1.1 mg/dL (0.6-1.2); TOTAL PROTEIN 7.7 g/dL (6.7-8.2)
[2020-11-26] MEDS ORDERED: PROMETHAZINE INJ 25 MG in SODIUM CHLORIDE 0.9% 50 ML IV STA (10:20)
--- NOTE | 2020-11-26 11:09 | ED Physician Documentation ---
PD HPI NVD - Stated complaint Stated Complaint: VOMITING/DIRREAH/ABD PX - Chief complaint Chief Complaint: Abd Pain - History obtained from History obtained from: Patient - History of Present Illness Timing - onset: Last night Timing - duration: Hours Timing - details: Abrupt onset, Still present Associated symptoms: Abdominal pain, Near syncope / syncope Contributing factors: Other (away from his suboxone) Improved by: Vomiting Similar symptoms before: Has not had sx before Recently seen: Not recently seen - Additonal information Additional information: 25-year-old male with a prior history of heroin addiction has been to treatment he has been out of treatment now and is on Suboxone he is on 8 mg strips and he has been started to decrease the frequency of taking this and now he is gone 5 days without it and has developed nausea vomiting diarrhea and abdominal pain. He states this is worse than what he has had with heroin withdrawal. He does still have the Suboxone available to him in his home and he did not want to return to his home because he was vomiting. He was afraid he might have Covid. He does not have any specific exposure to Covid. Review of Systems Constitutional: denies: Fever Eyes: denies: Decreased vision Ears: denies: Ear pain Nose: denies: Congestion Throat: denies: Sore throat Cardiac: denies: Chest pain / pressure, Palpitations Respiratory: denies: Dyspnea, Cough GI: reports: Abdominal Pain, Nausea, Vomiting, Diarrhea : denies: Dysuria Skin: denies: Rash Musculoskeletal: reports: Back pain. denies: Neck pain Neurologic: denies: Generalized weakness, Focal weakness, Numbness PD PAST MEDICAL HISTORY - Past Medical History Cardiovascular: Congestive heart failure, Other Respiratory: None Neuro: None Endocrine/Autoimmune: None GI: None : Kidney stones HEENT: None Psych: Depression, Anxiety Musculoskeletal: None Derm: None - Past Surgical History Past Surgical History: No - Present Medications Home Medications: Ambulatory Orders Medication Instructions Recorded Confirmed lisinopriL [Zestril] 5 mg PO 1200 #30 tablet 10/13/18 Naproxen 375 mg PO BID #20 tablet 10/15/18 Ondansetron Odt [Zofran] 4 mg TL Q6H PRN #10 tablet 11/26/20 - Allergies Allergies/Adverse Reactions: Allergies Allergy/AdvReac Type Severity Reaction Status Date / Time Penicillins Allergy Mild Rash Verified 08/22/20 20:34 - Social History Does the pt smoke?: Yes Smoking Status: Current every day smoker Does the pt drink ETOH?: Yes Does the pt have substance abuse?: Yes - Immunizations Immunizations are current?: Yes - POLST Patient has POLST: No PD ED PE NORMAL - Vitals Vital signs reviewed: Yes (Normal) - General General: Alert and oriented X 3, Well developed/nourished, Other (Patient appears withdrawn nauseous and has some loud retching. 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, No motor deficit, No sensory deficit, Normal speech Eye Opening: Spontaneous Motor: Obeys Commands Verbal: Oriented GCS Score: 15 - Psych Psych: Other (Mood is withdrawn the affect is flat) Results - Vitals Vitals: Vital Signs - 24 hr 11/26/20 11/26/20 09:24 10:12 Temperature 36.2 C L Heart Rate 62 47 L Respiratory 18 16 Rate Blood Pressure 130/67 141/68 H O2 Saturation 100 100 Oxygen O2 Source Room air - Labs Labs: Laboratory Tests 11/26/20 11/26/20 09:39 09:39 WBC 7.4 RBC 5.06 Hgb 15.9 Hct 46.3 MCV 91.5 MCH 31.4 H MCHC 34.3 RDW 12.3 Plt Count 256 MPV 10.5 Neut # (Auto) 4.5 Lymph # (Auto) 2.2 [place] # (Auto) 0.5 Eos # (Auto) 0.1 Baso # (Auto) 0.0 Absolute Nucleated RBC 0.00 Nucleated RBC % 0.0 Sodium 139 Potassium 4.1 Chloride 102 Carbon Dioxide 21 Anion Gap 16.0 H BUN 9 Creatinine 1.1 Estimated GFR (MDRD) 82 L Glucose 150 H Calcium 9.8 Total Bilirubin 0.7 AST 23 ALT 16 Alkaline Phosphatase 65 Total Protein 7.7 Albumin 4.8 Globulin 2.9 Albumin/Globulin Ratio 1.7 Lipase 32 PD MEDICAL DECISION MAKING - ED course Complexity details: reviewed results, re-evaluated patient, considered differential, d/w patient ED course: 25 y/o male with vomiting, abdominal pain, diarrhea, diaphoresis and generalized pain appears to be going through narcotic withdrawal and an IV line is estab lished and he is given IV buprenorphine and zofran. He continues to vomit and is given IV phenergan. Departure - Departure Disposition: 01 Home, Self Care Clinical Impression: Narcotic withdrawal Condition: Stable Instructions: ED Withdrawal Narcotic Follow-Up: EUGENE WEINBERG, MSN, RAMPMAN [Primary Care Provider] - Prescriptions: Ondansetron Odt [Zofran] 4 mg TL Q6H PRN #10 tablet PRN Reason: Nausea / Vomiting Comments: Restart your suboxone at the prior dose and follow up with the suboxone clinic for tapering.
[2020-11-26 12:27] VITALS: BP 113/63
== END 2020-11-26 12:27 | disposition home or self-care (01) ==
LOC: ED 09:21
DX: F19.939 Other psychoactive substance use, unspecified with withdrawal, unspecified (principal); T40.496A Underdosing of other synthetic narcotics, initial encounter; Z91.128 Patient's intentional underdosing of medication regimen for other reason; R11.2 Nausea with vomiting, unspecified; R19.7 Diarrhea, unspecified; R10.84 Generalized abdominal pain; F11.21 Opioid dependence, in remission; F17.200 Nicotine dependence, unspecified, uncomplicated
CPT/HCPCS: 36415; 80053; 83690; 85025; 96361; 96365; 96375; 99283; 99284; J0592; J7040

== ENCOUNTER 2021-02-20 | Outpatient (CLI) | payer MEDICAID | END 2021-02-20 17:17 | disposition home or self-care (01) | CPT/HCPCS: A0425; A0429; A0999 ==

== ENCOUNTER 2021-02-20 17:32 | Emergency (ER) | payer MEDICAID ==
[2021-02-20 18:14] LABS: BASOPHILS % (AUTO) 0.6 %; EOSINOPHILS # (AUTO) 0.2 10^3/uL (0.0-0.7); HCT - HEMATOCRIT 42.2 % (42.0-52.0); HGB - HEMOGLOBIN 14.2 g/dL (14.0-18.0); LYMPHOCYTES # (AUTO) 2.1 10^3/uL (1.5-3.5); LYMPHOCYTES % (AUTO) 39.6 %; MEAN CORPUSCULAR HEMOGLOBIN 30.7 pg (27.0-31.0); MEAN CORPUSCULAR HGB CONC 33.6 g/dL (32.0-36.0); MEAN CORPUSCULAR VOLUME 91.1 fL (80.0-94.0); MEAN PLATELET VOLUME 9.7 fL (7.4-11.4); MONOCYTES # (AUTO) 0.4 10^3/uL (0.0-1.0); MONOCYTES % (AUTO) 6.9 %; NEUTROPHILS # (AUTO) 2.6 10^3/uL (1.5-6.6); NEUTROPHILS % (AUTO) 48.7 %; PLT - PLATELET COUNT 265 10^3/uL (130-450); RED BLOOD COUNT 4.63 10^6/uL (4.70-6.10); RED CELL DISTRIBUTION WIDTH 13.2 % (12.0-15.0); WHITE BLOOD COUNT 5.2 x10^3/uL (4.8-10.8)
[2021-02-20 18:32] LABS: MUDS CUTOFF CONCENTRATIONS CUTOFF CONC BELOW:
[2021-02-20 18:37] LABS: GLUCOSE, URINE (UA) NEGATIVE (NEGATIVE); KETONES,URINE (UA) 15 mg/dL (NEGATIVE); LEUKOCYTE ESTERASE, URINE NEGATIVE (NEGATIVE); NITRITE,URINE NEGATIVE (NEGATIVE); OCCULT BLOOD,URINE MODERATE (NEGATIVE); PROTEIN,URINE TRACE mg/dL (NEGATIVE); UROBILINOGEN,URINE 2 E.U./dL (NORMAL)
[2021-02-20 18:43] LABS: BILIRUBIN,URINE NEGATIVE (NEGATIVE); CLARITY,URINE HAZY (CLEAR); ICTOTEST,URINE NEGATIVE
[2021-02-20 18:45] LABS: ACETAMINOPHEN < 10 ug/mL (10-30); ALBUMIN 4.5 g/dL (3.2-5.5); ALBUMIN/GLOBULIN RATIO 1.6 (1.0-2.2); ALKALINE PHOSPHATASE 62 IU/L (42-121); ALT ALANINE AMINOTRANSFERASE 29 IU/L (10-60); AST ASPARTATE AMINOTRANSFERASE 32 IU/L (10-42); BILIRUBIN,TOTAL 0.9 mg/dL (0.2-1.0); BUN - BLOOD UREA NITROGEN 12 mg/dL (6-20); CALCIUM 9.3 mg/dL (8.5-10.3); CARBON DIOXIDE - CO2 30 mmol/L (21-32); CHLORIDE 102 mmol/L (101-111); ETOH - ETHANOL < 5.0 mg/dL; GFR - MDRD 91 (>89); LIPASE 24 U/L (22-51); POTASSIUM 3.9 mmol/L (3.5-5.0); SALICYLATE < 6.0 mg/dL; SODIUM 140 mmol/L (135-145); TOTAL PROTEIN 7.3 g/dL (6.7-8.2)
[2021-02-20 18:46] LABS: GLUCOSE 59 mg/dL (70-100)
[2021-02-20 18:53] LABS: SQUAMOUS EPITHELIAL CELL,UR FEW Squamous (<= Few); WBC,URINE 0-3 /HPF (0-3)
[2021-02-20 18:54] LABS: BACTERIA,URINE Few /HPF (None Seen); COCAINE SCREEN URINE NEGATIVE (NEGATIVE); MUCUS,URINE Few Strands; THC CANNABINOID SCREEN, URINE POSITIVE (NEGATIVE)
[2021-02-20 18:55] LABS: AMPHETAMINE SCREEN,URINE POSITIVE (NEGATIVE); BARBITURATE SCREEN,UR NEGATIVE (NEGATIVE); BENZODIAZEPINES SCREEN, URINE NEGATIVE (NEGATIVE); METHADONE SCREEN, URINE NEGATIVE (NEGATIVE); METHAMPHETAMINES SCREEN, URINE POSITIVE (NEGATIVE); OPIATE SCREEN, URINE POSITIVE (NEGATIVE); OXYCODONE SCREEN, URINE NEGATIVE (NEGATIVE); PROPOXYPHENE SCREEN, URINE NEGATIVE (NEGATIVE); TRICYCLIC ANTIDEPRESSANT,URINE NEGATIVE (NEGATIVE)
--- NOTE | 2021-02-20 19:07 | ED Physician Documentation ---
History of Present Illness - Stated complaint Stated Complaint: MHE - Chief complaint Chief Complaint: MHE - Additonal information Additional information: 26-year-old male is brought into the emergency department via EMS after he has been off his bipolar medications for about 1 month. Patient reports to me that he wants help but he is unsure why. He is nontangential in his conversations. He denies that he has thoughts of self-harm or harm to others but states he would like to be resumed on his medications. He does not know the names of the medicines. He denies drug use but has multiple picking juarez on his skin Patient reportedly lives at home with his grandmother. I did ask the patient if I could call his grandmother for some ancillary history but he denied me the opportunity to make that phone call. Patient reports that he was bitten by a dog a number of days ago and has some superficial lacerations on the back of his head and arm. Review of Systems Constitutional: denies: Fever Eyes: reports: Reviewed and negative Ears: reports: Reviewed and negative Nose: reports: Reviewed and negative Throat: reports: Reviewed and negative Cardiac: reports: Reviewed and negative Respiratory: reports: Reviewed and negative GI: reports: Reviewed and negative : reports: Reviewed and negative Skin: reports: Reviewed and negative Neurologic: reports: Reviewed and negative PD PAST MEDICAL HISTORY - Past Medical History Cardiovascular: Congestive heart failure, Other Respiratory: None Neuro: None Endocrine/Autoimmune: None GI: None : Kidney stones HEENT: None Psych: Depression, Anxiety Musculoskeletal: None Derm: None - Past Surgical History Past Surgical History: No - Present Medications Home Medications: Ambulatory Orders Medication Instructions Recorded Confirmed lisinopriL [Zestril] 5 mg PO 1200 #30 tablet 10/13/18 Naproxen 375 mg PO BID #20 tablet 10/15/18 Ondansetron Odt [Zofran] 4 mg TL Q6H PRN #10 tablet 11/26/20 Doxycycline Hyclate 100 mg PO BID #14 02/20/21 - Allergies Allergies/Adverse Reactions: Allergies Allergy/AdvReac Type Severity Reaction Status Date / Time Penicillins Allergy Mild Rash Verified 02/20/21 17:38 - Social History Does the pt smoke?: Yes Smoking Status: Current every day smoker Does the pt drink ETOH?: Yes Does the pt have substance abuse?: Yes - Immunizations Immunizations are current?: Yes - POLST Patient has POLST: No PD ED PE EXPANDED - General General: Alert, No acute distress, Well developed/nourished - Cardiac Cardiac: Regular Rate, Radial strong equal, Pedal strong equal, Cap refill < 2 sec - Respiratory Respiratory: Clear to ausultation hilary. No: Distress, Labored - Abdomen Abdomen: Normal Bowel sounds. No: Tender to palpation - Derm Derm: Normal color, Warm and dry, Pick juarez, Other (shallow ulcerated wound right posterior occiput) - Extremities Extremities: Normal. No: Deformity, Tenderness - Neuro Neuro: Alert and Oriented X 3, CNII-XII intact, Cerebellar nl, Normal gait, Normal finger nose - GCS Eye Opening: Spontaneous Motor: Obeys Commands Verbal: Oriented Total: 15 - Psych Psych: Pressured speech. No: Suicidal, Homicidal, Tearful, Withdrawn, Anxious Results - Vitals Vitals: Vital Signs - 24 hr 02/20/21 17:38 Temperature 36.5 C Heart Rate 72 Respiratory 18 Rate Blood Pressure 129/78 O2 Saturation 100 Oxygen O2 Source Room air - Labs Labs: Laboratory Tests 02/20/21 02/20/21 02/20/21 18:07 18:07 18:07 WBC 5.2 RBC 4.63 L Hgb 14.2 Hct 42.2 MCV 91.1 MCH 30.7 MCHC 33.6 RDW 13.2 Plt Count 265 MPV 9.7 Neut # (Auto) 2.6 Lymph # (Auto) 2.1 [place] # (Auto) 0.4 Eos # (Auto) 0.2 Baso # (Auto) 0.0 Absolute Nucleated RBC 0.00 Nucleated RBC % 0.0 Sodium 140 Potassium 3.9 Chloride 102 Carbon Dioxide 30 Anion Gap 8.0 BUN 12 Creatinine 1.0 Estimated GFR (MDRD) 91 Glucose 59 L* Calcium 9.3 Total Bilirubin 0.9 AST 32 ALT 29 Alkaline Phosphatase 62 Total Protein 7.3 Albumin 4.5 Globulin 2.8 Albumin/Globulin Ratio 1.6 Lipase 24 TSH 0.62 Urine Color Urine Clarity Urine pH Ur Specific [place] Urine Protein Urine Glucose (UA) Urine Ketones Urine Occult Blood Urine Nitrite Urine Bilirubin Urine Urobilinogen Ur Leukocyte Esterase Urine RBC Urine WBC Ur Squamous Epith Cells Urine Bacteria Urine Mucus Ur Microscopic Review Urine Culture Comments Nasal Adenovirus (PCR) Nasal B. parapertussis DNA (PCR) Nasal Coronavir 229E PCR Nasal Coronavir HKU1 PCR Nasal Coronavir NL63 PCR Nasal Coronavir OC43 PCR Nasal Enterovir/Rhinovir PCR Nasal Influenza B PCR Nasal Influenza A PCR Nasal Parainfluen 1 PCR Nasal Parainfluen 2 PCR Nasal Parainfluen 3 PCR Nasal Parainfluen 4 PCR Nasal RSV (PCR) Nasal B.pertussis DNA PCR Nasal C.pneumoniae (PCR) Mandeep Human Metapneumo PCR Nasal M.pneumoniae (PCR) Nasal SARS-CoV-2 (PCR) Salicylates < 6.0 Urine Opiates Screen Ur Oxycodone Screen Urine Methadone Screen Ur Propoxyphene Screen Acetaminophen < 10 L Ur Barbiturates Screen Ur Tricyclics Screen Ur Phencyclidine Scrn Ur Amphetamine Screen U Methamphetamines Scrn U Benzodiazepines Scrn Urine Cocaine Screen U Cannabinoids Screen Ethyl Alcohol < 5.0 02/20/21 02/20/21 18:25 18:25 WBC RBC Hgb Hct MCV MCH MCHC RDW Plt Count MPV Neut # (Auto) Lymph # (Auto) [place] # (Auto) Eos # (Auto) Baso # (Auto) Absolute Nucleated RBC Nucleated RBC % Sodium Potassium Chloride Carbon Dioxide Anion Gap BUN Creatinine Estimated GFR (MDRD) Glucose Calcium Total Bilirubin AST ALT Alkaline Phosphatase Total Protein Albumin Globulin Albumin/Globulin Ratio Lipase TSH Urine Color DARK YELLOW Urine Clarity HAZY Urine pH 6.0 Ur Specific [place] 1.025 Urine Protein TRACE Urine Glucose (UA) NEGATIVE Urine Ketones 15 H Urine Occult Blood MODERATE H Urine Nitrite NEGATIVE Urine Bilirubin NEGATIVE Urine Urobilinogen 2 H Ur Leukocyte Esterase NEGATIVE Urine RBC 11-25 H Urine WBC 0-3 Ur Squamous Epith Cells FEW Squamous Urine Bacteria Few Urine Mucus Few Strands Ur Microscopic Review INDICATED Urine Culture Comments NOT INDICATED Nasal Adenovirus (PCR) NOT DETECTED Nasal B. parapertussis DNA (PCR) NOT DETECTED Nasal Coronavir 229E PCR NOT DETECTED Nasal Coronavir HKU1 PCR DETECTED A Nasal Coronavir NL63 PCR NOT DETECTED Nasal Coronavir OC43 PCR NOT DETECTED Nasal Enterovir/Rhinovir PCR NOT DETECTED Nasal Influenza B PCR NOT DETECTED Nasal Influenza A PCR NOT DETECTED Nasal Parainfluen 1 PCR NOT DETECTED Nasal Parainfluen 2 PCR NOT DETECTED Nasal Parainfluen 3 PCR NOT DETECTED Nasal Parainfluen 4 PCR NOT DETECTED Nasal RSV (PCR) NOT DETECTED Nasal B.pertussis DNA PCR NOT DETECTED Nasal C.pneumoniae (PCR) NOT DETECTED Mandeep Human Metapneumo PCR NOT DETECTED Nasal M.pneumoniae (PCR) NOT DETECTED Nasal SARS-CoV-2 (PCR) NOT DETECTED Salicylates Urine Opiates Screen POSITIVE H Ur Oxycodone Screen NEGATIVE Urine Methadone Screen NEGATIVE Ur Propoxyphene Screen NEGATIVE Acetaminophen Ur Barbiturates Screen NEGATIVE Ur Tricyclics Screen NEGATIVE Ur Phencyclidine Scrn NEGATIVE Ur Amphetamine Screen POSITIVE H U Methamphetamines Scrn POSITIVE H U Benzodiazepines Scrn NEGATIVE Urine Cocaine Screen NEGATIVE U Cannabinoids Screen POSITIVE H Ethyl Alcohol PD MEDICAL DECISION MAKING - ED course Complexity details: reviewed results, re-evaluated patient, d/w patient ED course: 26-year-old male presents the emergency department for evaluation of being off of his psychiatric meds for a number of weeks. Patient is unsure the names of the psychiatric medications he takes. He is adamant that he has not have thoughts of harm to himself or others. Patient reports to me he is mostly concerned about the dog bite wound on the back of his head. Patient screenings lab revealed that he is positive for both amphetamine and methamphetamine. I discussed this with the patient. I asked if I could speak with his grandma to talk about his case but he declined me the opportunity speak with his grandmother. His grandmother has called the emergency department and told us that if he was positive for substances that he would not be welcome back tonight. I relayed this to the patient. He declines telepsych evaluation and does not meet any criteria to be held therefore he will be discharged. He reports that he will call a friend to pick him up. I a will write a prescription for doxycycline for his dog bite wounds though superficial they may become infected and that is patient's primary concern. However I suspect that the "dog bite" on his occiput is more likely a picking lesion I advised close follow-up with his primary care doctor to resume his psychiatric medications. Departure - Departure Disposition: 01 Home, Self Care Clinical Impression: Methamphetamine use Dog bite Qualifiers: Encounter type: initial encounter Qualified Code(s): W54.0XXA - Bitten by dog, initial encounter Condition: Stable Record reviewed to determine appropriate education?: Yes Prescriptions: Doxycycline Hyclate 100 mg PO BID #14 Comments: Americo you were seen in the emergency department after you came via EMS because of concerns of erratic behavior at home. Your drug screening today is positive for methamphetamine. The we have not spoken to your grandmother she has called the emergency department and advised us that if you were positive for substances you may not return to her home tonight. You were offered psychiatric evaluation but declined it at this time. You do however have the right to refuse treatment and are cleared to be discharged from the emergency department. If at any point you feel that you would like to seek treatment again you may return at any time without question. If you would like resources for methamphetamine disorder treatment you may call [facility] [place] [place] You do have a number of superficial wounds on your arms and legs that are more consistent with skin picking with methamphetamine use than a dog bite, however I will write a prescription for doxycycline to prevent any infection.
[2021-02-20] MEDS ORDERED: DOXYCYCLINE 100 MG TABLET PO STA (19:13)
[2021-02-20 19:30] LABS: B. PARAPERTUSSIS- RESP PCR PAN NOT DETECTED; B. PERTUSSIS- RESP PCR PANEL NOT DETECTED; C. PNEUMONIAE- RESP PCR PANEL NOT DETECTED; CORONAVIRUS 229E-RESP PCR NOT DETECTED; CORONAVIRUS HKU1-RESP PCR DETECTED; CORONAVIRUS NL63-RESP PCR NOT DETECTED; CORONAVIRUS OC43-RESP PCR NOT DETECTED; HUMAN METAPNEUMOVIRUS NOT DETECTED; INFLUENZA A- RESP PCR PANEL NOT DETECTED; INFLUENZA B - RESP PCR PANEL NOT DETECTED; M. PNEUMONIAE- RESP PCR PANEL NOT DETECTED; PARAINFLUENZA VIRUS 1 NOT DETECTED; PARAINFLUENZA VIRUS 2 NOT DETECTED; PARAINFLUENZA VIRUS 3 NOT DETECTED; PARAINFLUENZA VIRUS 4 NOT DETECTED; RHINOVIRUS/ENTEROVIRUS NOT DETECTED; RSV- RESP PCR PANEL NOT DETECTED; SARS-CoV-2 -RESP PCR PANEL NOT DETECTED
[2021-02-20 20:22] VITALS: BP 127/72
--- OUTSIDE RECORDS SUMMARY | 2021-02-21 03:25 | EXTERNAL MEDICAL SUMMARY RPT | Continuity of Care Document ---
:1995 Demographics Phone Unavailable Preferred Language Unknown Marital Status Unknown Hoahaoism Affiliation Unknown Race Unknown Ethnic Group Unknown Author Organization [facility] Address [address] [place] [address] Phone Social History date description facility [phone]
== END 2021-02-20 20:26 | disposition home or self-care (01) ==
LOC: EDUNIT# → SUPCPDRO 17:32 → ED 17:32
DX: S00.00XA Unspecified superficial injury of scalp, initial encounter (principal); W54.0XXA Bitten by dog, initial encounter; Z76.89 Persons encountering health services in other specified circumstances; F17.200 Nicotine dependence, unspecified, uncomplicated; Z20.822 Contact with and (suspected) exposure to COVID-19
CPT/HCPCS: 0202U; 36415; 80053; 80306; 80307; 80320; 80329; 81001; 83690; 84443; 85025; 99283; A9270; 81003; 87086

== ENCOUNTER 2021-11-07 11:15 | Outpatient (CLI) | payer MEDICAID ==
[2021-11-07 12:00] LABS: BILIRUBIN,URINE NEGATIVE (NEGATIVE); GLUCOSE, URINE (UA) NEGATIVE (NEGATIVE); KETONES,URINE (UA) NEGATIVE (NEGATIVE); LEUKOCYTE ESTERASE, URINE NEGATIVE (NEGATIVE); NITRITE,URINE NEGATIVE (NEGATIVE); OCCULT BLOOD,URINE NEGATIVE (NEGATIVE); PROTEIN,URINE NEGATIVE (NEGATIVE); UROBILINOGEN,URINE 0.2 (NORMAL) E.U./dL (NORMAL)
[2021-11-07 12:20] LABS: AMORPHOUS SEDIMENT,UR Moderate /LPF; BACTERIA,URINE None Seen /HPF (None Seen); CLARITY,URINE CLOUDY (CLEAR); RBC,URINE None Seen /HPF (0-5); SQUAMOUS EPITHELIAL CELL,UR NONE SEEN (<= Few); WBC,URINE 0-3 /HPF (0-3)
== END 2021-11-07 23:59 | disposition home or self-care (01) ==
LOC: LAB.R 11:15
PROVIDERS: ATTEND Registered Nurse
DX: R30.0 Dysuria (principal)
CPT/HCPCS: 81001; 87086

== ENCOUNTER 2022-06-17 15:01 | Outpatient (CLI) | payer MEDICAID | END 2022-06-17 15:02 | disposition home or self-care (01) | LOC: DI 15:01 | PROVIDERS: ATTEND Nurse Practitioner Family | DX: F19.10 Other psychoactive substance abuse, uncomplicated (principal); I51.7 Cardiomegaly; I50.9 Heart failure, unspecified; R00.1 Bradycardia, unspecified | CPT/HCPCS: 93306 ==

== ENCOUNTER 2023-06-30 11:04 | Emergency (ER) | payer MEDICAID ==
[2023-06-30 11:22] LABS: BASOPHILS % (AUTO) 0.4 %; EOSINOPHILS % (AUTO) 0.4 %; HCT - HEMATOCRIT 45.7 % (42.0-52.0); HGB - HEMOGLOBIN 15.5 g/dL (14.0-18.0); LYMPHOCYTES # (AUTO) 1.5 10^3/uL (1.5-3.5); LYMPHOCYTES % (AUTO) 14.3 %; MEAN CORPUSCULAR HEMOGLOBIN 30.5 pg (27.0-31.0); MEAN CORPUSCULAR HGB CONC 33.9 g/dL (32.0-36.0); MEAN PLATELET VOLUME 9.9 fL (7.4-11.4); MONOCYTES # (AUTO) 0.8 10^3/uL (0.0-1.0); MONOCYTES % (AUTO) 7.9 %; NEUTROPHILS % (AUTO) 76.7 %; PLT - PLATELET COUNT 257 10^3/uL (130-450); RED BLOOD COUNT 5.08 10^6/uL (4.70-6.10); RED CELL DISTRIBUTION WIDTH 12.3 % (12.0-15.0); WHITE BLOOD COUNT 10.4 x10^3/uL (4.8-10.8)
[2023-06-30 11:36] LABS: ALBUMIN 4.7 g/dL (3.2-5.5); ALBUMIN/GLOBULIN RATIO 1.7 (1.0-2.2); BILIRUBIN,TOTAL 0.7 mg/dL (0.2-1.0); CALCIUM 9.8 mg/dL (8.5-10.3); CREATININE 1.5 mg/dL (0.6-1.3); POTASSIUM 3.9 mmol/L (3.5-4.5); TOTAL PROTEIN 7.4 g/dL (6.4-8.9)
--- NOTE | 2023-06-30 12:19 | ED Physician Documentation ---
PD HPI ABD PAIN - Stated complaint Stated Complaint: SIDE/ABD PX - Chief complaint Chief Complaint: Abd Pain - History obtained from History obtained from: Patient - History of Present Illness Timing - onset: How many hours ago (1-2), Today Timing - duration: Hours (1-2) Timing - details: Abrupt onset, Still present Quality: Sharp, Pain Location: RLQ Radiation: Right flank Improved by: No: Vomiting Worsened by: No: Moving, Breathing Associated symptoms: Nausea, Hematuria (he said he passed a small kidney stone after onset of the pain (brought it with him to ER in spec cup), but pain has not stopped so concerned still more stone to pass.). No: Fever, Hematemesis, Diarrhea, Constipation Similar symptoms before: Diagnosis (has had prior kidney stones with similar symptoms.) Recently seen: Not recently seen Review of Systems Constitutional: denies: Fever, Chills Cardiac: denies: Chest pain / pressure Respiratory: denies: Dyspnea GI: reports: Nausea, Vomiting. denies: Constipation, Diarrhea : denies: Dysuria, Frequency PD PAST MEDICAL HISTORY - Past Medical History Cardiovascular: Congestive heart failure, Other Respiratory: None Neuro: None Endocrine/Autoimmune: None GI: None : Kidney stones HEENT: None Psych: Depression, Anxiety Musculoskeletal: None Derm: None - Past Surgical History Past Surgical History: No - Present Medications Home Medications: Ambulatory Orders Medication Instructions Recorded Confirmed lisinopriL [Zestril] 5 mg PO 1200 #30 tablet 10/13/18 Naproxen 375 mg PO BID #20 tablet 10/15/18 Ondansetron Odt [Zofran] 4 mg TL Q6H PRN #10 tablet 11/26/20 Doxycycline Hyclate 100 mg PO BID #14 02/20/21 HYDROcod/ACETAM 5/325 [[place] 5/325] 1 ea PO Q6H PRN #14 tablet 06/30/23 Ibuprofen [Motrin] 600 mg PO TID PRN #25 tab 06/30/23 Ondansetron Odt [Zofran] 4 mg TL Q6H PRN #10 tablet 06/30/23 - Allergies Allergies/Adverse Reactions: Allergies Allergy/AdvReac Type Severity Reaction Status Date / Time Penicillins Allergy Mild Rash Verified 02/20/21 17:38 amoxicillin Allergy Hives Verified 06/30/23 11:11 - Social History Does the pt smoke?: Yes Smoking Status: Current every day smoker Does the pt drink ETOH?: Yes Does the pt have substance abuse?: Yes - Immunizations Immunizations are current?: Yes - POLST Patient has POLST: No PD ED PE NORMAL - Vitals Vital signs reviewed: Yes - General General: Alert and oriented X 3, Well developed/nourished, Other (appears in pain right sided. ) - Cardiac Cardiac: RRR, No murmur - Respiratory Respiratory: Clear bilaterally - Abdomen Abdomen: Normal bowel sounds, Soft, Non distended, No organomegaly, Other - Male Male : Deferred - Rectal Rectal: Deferred - Back Back: Other (right CVA area tender to percussion.) - Derm Derm: Normal color, Warm and dry - Neuro Neuro: Alert and oriented X 3, No motor deficit, Normal speech Results - Vitals Vitals: Vital Signs - 24 hr 06/30/23 06/30/23 06/30/23 11:09 12:33 15:17 Temperature 36.4 C L 98.6 C H Heart Rate 74 52 L 50 L Respiratory 16 16 16 Rate Blood Pressure 142/86 H 137/77 H 119/66 O2 Saturation 96 96 98 06/30/23 17:06 Temperature Heart Rate 48 L Respiratory 16 Rate Blood Pressure 126/67 O2 Saturation 98 Oxygen O2 Source Room air - Labs Labs: Laboratory Tests 06/30/23 06/30/23 06/30/23 11:19 11:19 13:50 WBC 10.4 RBC 5.08 Hgb 15.5 Hct 45.7 MCV 90.0 MCH 30.5 MCHC 33.9 RDW 12.3 Plt Count 257 MPV 9.9 Neut # (Auto) 8.0 H Lymph # (Auto) 1.5 [place] # (Auto) 0.8 Eos # (Auto) 0.0 Baso # (Auto) 0.0 Absolute Nucleated RBC 0.00 Nucleated RBC % 0.0 Sodium 139 Potassium 3.9 Chloride 106 Carbon Dioxide 26 Anion Gap 7.0 BUN 15 Creatinine 1.5 H Estimated GFR (MDRD) 56 L Glucose 112 H Calcium 9.8 Total Bilirubin 0.7 AST 15 ALT 12 Alkaline Phosphatase 52 Total Protein 7.4 Albumin 4.7 Globulin 2.7 Albumin/Globulin Ratio 1.7 Lipase 19 Urine Color YELLOW Urine Clarity CLEAR Urine pH 5.5 Ur Specific [place] 1.015 Urine Protein TRACE Urine Glucose (UA) NEGATIVE Urine Ketones NEGATIVE Urine Occult Blood NEGATIVE Urine Nitrite NEGATIVE Urine Bilirubin NEGATIVE Urine Urobilinogen 0.2 (NORMAL) Ur Leukocyte Esterase NEGATIVE Ur Microscopic Review NOT INDICATED Urine Culture Comments NOT INDICATED - Rads (name of study) abd/retroperitoneal US Relevant Findings:: Prelim report reviewed (stone in kidney 8mm but no hydroneophrosis nor ureter. appendix not visualized. ), EMP independent interpretation of test PD Medical Decision Making - ED course Complexity details: reviewed results (presume passing/passed kidney stone. 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 could be more stone or having spasms/clots. Our CT is broken this morning, so US is best and I feel adequate to ensure not obstructed.), considered differential (history of stones and has onset and pattern of pain c/w kidney stone. No blood in urine. U/S without hydronephrosis, but he did pass a stone in urine this mornig. Consider ureteral spasms or some clots still causing pain. Clinicially low suspicion for appendix or GB. Meds Rx. ), d/w patient Departure - Departure Disposition: Home, Self Care Clinical Impression: Right sided abdominal pain, Ureterolithiasis Condition: Stable Record reviewed to determine appropriate education?: Yes Instructions: ED Stone Renal W Colic Follow-Up: Kamari Olson MD [Provider Admit Priv/Credential] - Prescriptions: Ibuprofen [Motrin] 600 mg PO TID PRN #25 tab PRN Reason: Pain HYDROcod/ACETAM 5/325 [[place] 5/325] 1 ea PO Q6H PRN #14 tablet PRN Reason: Pain Ondansetron Odt [Zofran] 4 mg TL Q6H PRN #10 tablet PRN Reason: Nausea / Vomiting Comments: Presume you are still passing a kidney stone. The ultrasound did not show any swelling of the kidney so it does appear that flow is going around the stone. The ultrasound did not show any appendicitis nor gallbladder or pancreas problems. Stay well-hydrated. Use some anti-inflammatory such as ibuprofen 3 times a day with food for the next several days to week. Ondansetron if needed for nausea. Tylenol every 4-6 hours if needed for pain. Add hydrocodone/acetaminophen if needed for worse pain. Here in the ER he did receive ketorolac/Toradol as an anti-inflammatory and hydromorphone/Dilaudid for pain. You are prescribed the hydrocodone if needed with the intention being short-term over the next few days. Recheck if not improved completely over the next few days return sooner if worse. I sent your prescription to [facility] pharmacy in [place]. I am prescribing a short course of narcotic pain medication for you. These are potentially dangerous and addictive medications that should be used carefully. These medications may constipate you. Take an [id number] stool softener such as docusate twice daily with plenty of water while taking these medications. If you go 24 hours without a bowel movement, take [id number] MiraLAX, per package instructions. Do not drink or drive while taking these medications. If you received narcotic or sedating medications while in the emergency department do not drive for 24 hours. Store this medication in a safe, secure place and out of reach of children. It is a violation of federal law to give or sell this medication to another person or to use in a manner other than prescribed. The ED will not refill narcotic prescriptions, including prescriptions lost or stolen. You can dispose of unwanted medications at the [facility]'s office or at several pharmacies such as [facility]. Forms: PCP List Discharge Date/Time: 06/30/23 17:07
[2023-06-30] MEDS ORDERED: SODIUM CHLORIDE 0.9% 1,000 ML IV STA (12:46)
[2023-06-30] MEDS ORDERED: ONDANSETRON 4 MG/2 ML VIAL IVP STA (12:49)
[2023-06-30] MEDS ORDERED: HYDROmorphone 1 MG/ML CARPUJECT IVP STA ×2 (12:50→14:46)
[2023-06-30] MEDS ORDERED: KETOROLAC 15 MG/ML VIAL IVP STA (12:51)
[2023-06-30 13:58] LABS: BILIRUBIN,URINE NEGATIVE (NEGATIVE); GLUCOSE, URINE (UA) NEGATIVE (NEGATIVE); KETONES,URINE (UA) NEGATIVE (NEGATIVE); LEUKOCYTE ESTERASE, URINE NEGATIVE (NEGATIVE); NITRITE,URINE NEGATIVE (NEGATIVE); OCCULT BLOOD,URINE NEGATIVE (NEGATIVE); PH,URINE 5.5 PH (5.0-7.5); PROTEIN,URINE TRACE mg/dL (NEGATIVE); UROBILINOGEN,URINE 0.2 (NORMAL) E.U./dL (NORMAL)
[2023-06-30 13:59] LABS: CLARITY,URINE CLEAR (CLEAR)
[2023-06-30 15:19] VITALS: O2SAT 98
[2023-06-30 17:08] VITALS: BP 126/67
--- NOTE | 2023-06-30 17:16 | Ultrasound Report ---
PROCEDURE: Abdomen Limited INDICATIONS: right abd/flank pain today TECHNIQUE: Real-time focused scanning was performed of the abdomen, with image documentation. COMPARISONS: CT abdomen/pelvis with, 10/10/2018. FINDINGS: Right kidney measures 10.9 cm and demonstrates normal echotexture. There is a 8 mm stone at the right superior pole. No right hydronephrosis. Appendix is not visualized. Miscellaneous: No free abdominal fluid. IMPRESSION: 1. A 8 mm superior pole stone in the right kidney. No hydronephrosis. 2. Nonvisualization of appendix. Early acute appendicitis is not excluded. Recommend clinical correla tion. If clinically indicated, CT can be obtained for further aeration. Reviewed by: Dean Topete MD on 06/30/2023 5:15 PM PDT Approved by: Dean Topete MD on 06/30/2023 5:15 PM PDT Station ID: [id number]
== END 2023-06-30 17:07 | disposition home or self-care (01) ==
LOC: ED 11:04
DX: N20.1 Calculus of ureter (principal); I50.9 Heart failure, unspecified; F17.200 Nicotine dependence, unspecified, uncomplicated; Z87.442 Personal history of urinary calculi; Z79.899 Other long term (current) drug therapy
CPT/HCPCS: 36415; 76705; 80053; 81003; 83690; 85025; 96374; 96376; 99284; J1170; 81001; 87086

== ENCOUNTER 2023-07-07 12:58 | Emergency (ER) | payer MEDICAID ==
[2023-07-07 13:29] LABS: BASOPHILS % (AUTO) 0.4 %; EOSINOPHILS % (AUTO) 0.3 %; HCT - HEMATOCRIT 46.6 % (42.0-52.0); HGB - HEMOGLOBIN 15.6 g/dL (14.0-18.0); LYMPHOCYTES # (AUTO) 1.3 10^3/uL (1.5-3.5); MEAN CORPUSCULAR HEMOGLOBIN 30.7 pg (27.0-31.0); MEAN CORPUSCULAR HGB CONC 33.5 g/dL (32.0-36.0); MEAN CORPUSCULAR VOLUME 91.7 fL (80.0-94.0); MEAN PLATELET VOLUME 10.4 fL (7.4-11.4); MONOCYTES # (AUTO) 0.4 10^3/uL (0.0-1.0); MONOCYTES % (AUTO) 5.1 %; NEUTROPHILS # (AUTO) 5.2 10^3/uL (1.5-6.6); NEUTROPHILS % (AUTO) 75.1 %; PLT - PLATELET COUNT 225 10^3/uL (130-450); RED BLOOD COUNT 5.08 10^6/uL (4.70-6.10); RED CELL DISTRIBUTION WIDTH 12.6 % (12.0-15.0); WHITE BLOOD COUNT 6.9 x10^3/uL (4.8-10.8)
[2023-07-07 13:42] LABS: ALBUMIN 4.8 g/dL (3.2-5.5); BILIRUBIN,TOTAL 0.6 mg/dL (0.2-1.0); CALCIUM 10.1 mg/dL (8.5-10.3); CREATININE 1.1 mg/dL (0.6-1.3); POTASSIUM 4.5 mmol/L (3.5-4.5); TOTAL PROTEIN 7.2 g/dL (6.4-8.9)
[2023-07-07 13:46] LABS: MUDS CUTOFF CONCENTRATIONS CUTOFF CONC BELOW:
[2023-07-07 13:49] LABS: BILIRUBIN,URINE NEGATIVE (NEGATIVE); GLUCOSE, URINE (UA) NEGATIVE (NEGATIVE); KETONES,URINE (UA) NEGATIVE (NEGATIVE); LEUKOCYTE ESTERASE, URINE NEGATIVE (NEGATIVE); NITRITE,URINE NEGATIVE (NEGATIVE); OCCULT BLOOD,URINE TRACE-INTA (NEGATIVE); PROTEIN,URINE NEGATIVE (NEGATIVE); UROBILINOGEN,URINE 0.2 (NORMAL) E.U./dL (NORMAL)
[2023-07-07 13:52] LABS: CLARITY,URINE CLEAR (CLEAR)
[2023-07-07 14:06] LABS: AMPHETAMINE SCREEN,URINE NEGATIVE (NEGATIVE); BARBITURATE SCREEN,UR NEGATIVE (NEGATIVE); BENZODIAZEPINES SCREEN, URINE NEGATIVE (NEGATIVE); COCAINE SCREEN URINE NEGATIVE (NEGATIVE); METHADONE SCREEN, URINE NEGATIVE (NEGATIVE); METHAMPHETAMINES SCREEN, URINE NEGATIVE (NEGATIVE); OPIATE SCREEN, URINE POSITIVE (NEGATIVE); OXYCODONE SCREEN, URINE NEGATIVE (NEGATIVE); PROPOXYPHENE SCREEN, URINE NEGATIVE (NEGATIVE); THC CANNABINOID SCREEN, URINE POSITIVE (NEGATIVE); TRICYCLIC ANTIDEPRESSANT,URINE NEGATIVE (NEGATIVE)
[2023-07-07] MEDS ORDERED: KETOROLAC 30 MG/ML VIAL IVP STA (14:20)
[2023-07-07] MEDS ORDERED: SODIUM CHLORIDE 0.9% 1,000 ML IV STA (14:20)
--- NOTE | 2023-07-07 14:43 | ED Physician Documentation ---
PD HPI ABD PAIN - Stated complaint Stated Complaint: FLANK PX - Chief complaint Chief Complaint: Abd Pain - History obtained from History obtained from: Patient - Additional information Additional information: Patient is a 28-year-old male presenting for evaluation of bilateral flank pain that has been present for at least 1 week. Patient was seen in our emergency department last week for similar symptoms and diagnosed with stones in his kidneys. He followed up with Dr. Olson on Friday who recommended he get a CT scan. He had an ultrasound done when he was in the emergency department as CT was not available that day. Patient reports having continued pain despite use of pain medication that he was given last week as well as ibuprofen over the weekend. No nausea or vomiting. No hematuria. No fevers. Review of Systems Constitutional: denies: Fever Cardiac: denies: Chest pain / pressure Respiratory: denies: Dyspnea GI: denies: Abdominal Pain : denies: Dysuria PD PAST MEDICAL HISTORY - Past Medical History Past Medical History: Yes Cardiovascular: Congestive heart failure, Other Respiratory: None Neuro: None Endocrine/Autoimmune: None GI: None : Kidney stones HEENT: None Psych: Depression, Anxiety Musculoskeletal: None Derm: None - Past Surgical History Past Surgical History: No - Present Medications Home Medications: Ambulatory Orders Medication Instructions Recorded Confirmed lisinopriL [Zestril] 5 mg PO 1200 #30 tablet 10/13/18 Naproxen 375 mg PO BID #20 tablet 10/15/18 Ondansetron Odt [Zofran] 4 mg TL Q6H PRN #10 tablet 11/26/20 Doxycycline Hyclate 100 mg PO BID #14 02/20/21 HYDROcod/ACETAM 5/325 [[place]amo 5/325] 1 ea PO Q6H PRN #14 tablet 06/30/23 Ibuprofen [Motrin] 600 mg PO TID PRN #25 tab 06/30/23 Ondansetron Odt [Zofran] 4 mg TL Q6H PRN #10 tablet 06/30/23 polyethylene glycoL 3350 [Miralax] 17 gm PO DAILY PRN #14 packet 07/07/23 - Allergies Allergies/Adverse Reactions: Allergies Allergy/AdvReac Type Severity Reaction Status Date / Time Penicillins Allergy Mild Rash Verified 07/07/23 13:05 amoxicillin Allergy Hives Verified 07/07/23 13:05 - Social History Does the pt smoke?: Yes Smoking Status: Current every day smoker Does the pt drink ETOH?: Yes Does the pt have substance abuse?: Yes - Immunizations Immunizations are current?: Yes - POLST Patient has POLST: No PD ED PE NORMAL - General General: Alert and oriented X 3, No acute distress, Well developed/nourished - HEENT HEENT: Atraumatic - Neck Neck: Supple, no meningeal sign - Cardiac Cardiac: RRR, No murmur - Respiratory Respiratory: No respiratory distress, Clear bilaterally - Abdomen Abdomen: Soft, Non tender, Non distended - Back Back: No CVA TTP - Derm Derm: Warm and dry - Neuro Neuro: Normal speech Results - Vitals Vitals: Vital Signs - 24 hr 07/07/23 07/07/23 07/07/23 13:05 13:48 16:40 Temperature 36.5 C Heart Rate 60 55 L 47 L Respiratory 18 20 20 Rate Blood Pressure 138/76 H 130/86 H 133/80 H O2 Saturation 98 97 100 07/07/23 17:31 Temperature Heart Rate 50 L Respiratory 18 Rate Blood Pressure 130/80 O2 Saturation 100 Oxygen O2 Source Room air - Labs Labs: Laboratory Tests 07/07/23 07/07/23 07/07/23 13:23 13:23 13:41 WBC 6.9 RBC 5.08 Hgb 15.6 Hct 46.6 MCV 91.7 MCH 30.7 MCHC 33.5 RDW 12.6 Plt Count 225 MPV 10.4 Neut # (Auto) 5.2 Lymph # (Auto) 1.3 L Frontier # (Auto) 0.4 Eos # (Auto) 0.0 Baso # (Auto) 0.0 Absolute Nucleated RBC 0.00 Nucleated RBC % 0.0 Sodium 139 Potassium 4.5 Chloride 103 Carbon Dioxide 32 Anion Gap 4.0 L BUN 10 Creatinine 1.1 Estimated GFR (MDRD) 80 L Glucose 109 H Calcium 10.1 Total Bilirubin 0.6 AST 11 ALT 10 Alkaline Phosphatase 48 Total Protein 7.2 Albumin 4.8 Globulin 2.4 Albumin/Globulin Ratio 2.0 Urine Color YELLOW Urine Clarity CLEAR Urine pH 8.0 H Ur Specific Landing 1.015 Urine Protein NEGATIVE Urine Glucose (UA) NEGATIVE Urine Ketones NEGATIVE Urine Occult Blood TRACE-INTA Urine Nitrite NEGATIVE Urine Bilirubin NEGATIVE Urine Urobilinogen 0.2 (NORMAL) Ur Leukocyte Esterase NEGATIVE Ur Microscopic Review NOT INDICATED Urine Culture Comments NOT INDICATED Urine Opiates Screen POSITIVE H Ur Oxycodone Screen NEGATIVE Urine Methadone Screen NEGATIVE Ur Propoxyphene Screen NEGATIVE Ur Barbiturates Screen NEGATIVE Ur Tricyclics Screen NEGATIVE Ur Phencyclidine Scrn NEGATIVE Ur Amphetamine Screen NEGATIVE U Methamphetamines Scrn NEGATIVE U Benzodiazepines Scrn NEGATIVE Urine Cocaine Screen NEGATIVE U Cannabinoids Screen POSITIVE H PD Medical Decision Making - ED course Complexity details: reviewed results, re-evaluated patient, d/w patient ED course: Patient is a 28-year-old male presenting for evaluation of bilateral flank pain. He was told he has kidney stones last week and saw urology. Due to equipment issues CT was not available last week. Patient has a benign exam. Vital signs are stable. CBC, chemistries, urinalysis are obtained and reviewed without significant findings. CT of the abdomen pelvis was obtained and shows a small stones in bilateral kidneys but no ureter stones. He does appear to have a fair amount of stool burden seen though on CT scan. He did have a bowel movement this morning. Has reported some hard stools and constipation. At this time recommendations were given for trial of MiraLAX and follow-up with PCP. Patient is counseled on concerning symptoms to return for. Departure - Departure Disposition: 01 Home, Self Care Clinical Impression: Bilateral flank pain Condition: Stable Instructions: ED Flank Pain Uncertain Cause Prescriptions: polyethylene glycoL 3350 [Miralax] 17 gm PO DAILY PRN #14 packet PRN Reason: Constipation Comments: Your CT scan shows a 4 mm stone in the right kidney and a 2 mm 1 in the left kidney. There is no stones in the ureters which are the tubes that connect the kidneys to the bladder. There is a fair amount of stool burden seen on the CT scan. This could be one of the reasons you are having some of your symptoms. Therefore I do recommend using MiraLAX daily as needed for constipation over the next 1 to 2 weeks to help you have more regular softer stools. I would also recommend follow-up with your primary care provider or at the walk-in clinic. Return to the ER if you develop any worsening symptoms. Forms: PCP List Discharge Date/Time: 07/07/23 17:32
[2023-07-07 16:53] VITALS: O2SAT 100
--- NOTE | 2023-07-07 17:18 | CT Report ---
PROCEDURE: CT abdomen pelvis without contrast INDICATIONS: flank pain/history of stones TECHNIQUE: Helical axial CT of the abdomen and pelvis was obtained without intravenous contrast and reformatted in multiple planes. For radiation dose reduction, the following was used: automated exposure control, adjustment of mA and/or kV according to patient size. COMPARISON: None. FINDINGS: Lower thorax: The lung bases are clear. Heart size normal. No hiatal hernia. Liver: Normal in size and attenuation. No contour deformity present. Biliary system: No calcified cholelithiasis or pericholecystic inflammation. No evidence of bile du ct dilatation. Pancreas: Unremarkable without mass or inflammation evident. Spleen: Normal in size and density. Adrenals: Normal morphology and density. Reproductive system: Unremarkable as visualized. Urinary system: Nonobstructive right renal calculus measures 4 mm. No hydronephrosis bilaterally. A l ow-density left renal lesion measures 2 cm, likely cyst. 2 mm nonobstructive left renal calculus pres ent. Bladder unremarkable. Gastrointestinal system: The bowel appears unremarkable with no evidence of bowel obstruction or inf lammation. The stomach appears unremarkable. Appendix: No findings to suggest acute appendicitis. Peritoneal spaces: No mesenteric or retroperitoneal adenopathy. No free air. No free fluid. Vasculature: The IVC, aorta and iliac vasculature are unremarkable. Musculoskeletal: Normal bone mineralization. No acute fractures. Abdominal wall intact without rubina dence of ventral or inguinal hernias. IMPRESSION: Bilateral nonobstructing tiny renal calculi. No hydronephrosis. Reviewed by: Josiah Chavis MD on 07/07/2023 4:17 PM MISTY Approved by: Josiah Chavis MD on 07/07/2023 4:17 PM AKDT Station ID: [id number]
[2023-07-07 17:39] VITALS: BP 130/80
== END 2023-07-07 17:32 | disposition home or self-care (01) ==
LOC: ED 12:58
DX: R10.9 Unspecified abdominal pain (principal); N20.0 Calculus of kidney; K59.00 Constipation, unspecified
CPT/HCPCS: 36415; 80053; 80306; 81001; 81003; 85025; 87086; 96374; 99284

== ENCOUNTER 2024-02-18 12:15 | Outpatient (CLI) | payer MEDICAID ==
[2024-02-18 20:26] LABS: BILIRUBIN,URINE NEGATIVE (NEGATIVE); GLUCOSE, URINE (UA) NEGATIVE (NEGATIVE); KETONES,URINE (UA) NEGATIVE (NEGATIVE); LEUKOCYTE ESTERASE, URINE NEGATIVE (NEGATIVE); NITRITE,URINE NEGATIVE (NEGATIVE); OCCULT BLOOD,URINE SMALL (NEGATIVE); PH,URINE 7.5 PH (5.0-7.5); PROTEIN,URINE NEGATIVE (NEGATIVE); UROBILINOGEN,URINE 0.2 (NORMAL) E.U./dL (NORMAL)
[2024-02-18 20:37] LABS: BACTERIA,URINE Rare /HPF (None Seen); CLARITY,URINE CLEAR (CLEAR); RBC,URINE 0-5 /HPF (0-5); SQUAMOUS EPITHELIAL CELL,UR NONE SEEN (<= Few); WBC,URINE 0-3 /HPF (0-3)
== END 2024-02-18 12:30 | disposition home or self-care (01) ==
LOC: LAB.N 12:15
PROVIDERS: ATTEND Registered Nurse
DX: N20.0 Calculus of kidney (principal); R30.0 Dysuria
CPT/HCPCS: 81001; 87086